=== PATIENT | female | born 1955 | race Caucasian/White ===

== ENCOUNTER 2020-12-27 12:40 | Inpatient (IN) | payer MEDICARE, SELFPAY ==
[2020-12-27] VITALS (24 sets, daily range): BP systolic 97–146; BP diastolic 55–90; PULSE 84–106; RESP 20–26; TEMP 36.1–36.9; O2SAT 91–99; BMI 54.8; BMI 51.7
--- NOTE | 2020-12-27 13:06 | DI.RAD.S_ITS ---
PROCEDURE: XR CHEST 1V INDICATIONS: h/o pne TECHNIQUE: One view of the chest was acquired. COMPARISON: None. FINDINGS: Surgical changes and devices: None. Lungs and pleura: Lungs are abnormal with what appears to be a generalized pneumonia pattern bilaterally. No pleural effusions or pneumothorax. Mediastinum: Mediastinal contours appear normal. Heart size is normal. Bones and chest wall: No suspicious bony lesions. Overlying soft tissues appear unremarkable. IMPRESSION: Generalized pneumonia pattern bilaterally, please correlate for presence of atypical/viral pneumonia. Dictated by: Gordo Domínguez M.D. on 12/27/2020 at 13:28 Approved by: Gordo Domínguez M.D. on 12/27/2020 at 13:28
[2020-12-27 13:47] LABS: Add Manual Diff / Slide Review NO; Basophils Absolute Auto 100 /uL (0-100); Eosinophils Absolute Auto 0 /uL (0-450); Hematocrit 42.8 % (36-46); Hemoglobin 13.8 g/dL (12.0-16.0); Lymphocytes Absolute Auto 700 /uL (1100-4500); Lymphocytes Percent Auto 13.1 % (25-40); Mean Corpuscular HGB Conc 32.3 % (30-36); Mean Corpuscular Hemoglobin 29.2 PG (26-34); Mean Corpuscular Volume 90.2 fL (80-100); Monocytes Absolute Auto 300 /uL (0-900); Monocytes Percent Auto 5.1 % (3-14); Neutrophils Absolute Auto 4400 /uL (1500-7000); Neutrophils Percent Auto 80.8 % (50-75); Platelet Count 175 X10^3/uL (150-400); Red Blood Cell Count 4.74 X10^6/uL (4.0-5.2); Red Cell Distribution Width 15.1 % (11.6-14.8); White Blood Cell Count 5.5 X10^3/uL (4.5-11.0)
--- NOTE | 2020-12-27 13:48 | ED.SOB ---
HPI - SOB/Dyspnea General Chief Complaint: Shortness of Breath/Dyspnea Stated Complaint: Weakness/SOB Time Seen by Provider: 12/27/20 13:32 Source: patient Mode of arrival: EMS Limitations: no limitations History of Present Illness HPI Narrative: This is a 65-year-old female who comes emergency department with complaint of wheezing, COPD and recent pneumonia. Patient states she had finished her steroids and antibiotics yesterday. She has continued to feel unwell. She had temperatures up to 100 101 over the last 2 days before then was even having temperatures of 103. Patient has had some chest discomfort, she has had some shortness of breath, she denies any nausea vomiting. She has had persistent diarrhea since starting the antibiotics. Patient has chronic urinary incontinence. She has had a nonproductive cough. She has also noted she has had intermittent swelling in her lower extremities. When she has her legs elevated it is improved. When they were down or she is up moving about during the day become swollen again. Patient has a known history of COPD, hypertension which is labile, fibromyalgia, RLS, prior history of TIAs. Patient states she has no prior history of dyslipidemia, heart attacks or chronic kidney disease. She is on Breo for her daily steroid inhaler. She has been using her albuterol 3 times daily and typically she does not use it at all. Patient is a poor historian in terms of some of her medications, she was able to provide a list from her pharmacy but some medications that were refilled in November she states she is not taking. List includes today as needed, Ambien, Breo, lisinopril, gabapentin, temazepam, escitalopram, repair in all and Topamax. Patient states she does no longer taking Lasix or potassium. And that she takes metoprolol as a as needed medication. Positive for hysterectomy, cholecystectomy and appendectomy. Patient has multiple allergies. She quit smoking many years ago. No tobacco, alcohol or illicit. Patient recently moved to the area 2 weeks ago from [place], [place]. Her PCP there was Srinivasa Emmanuel, at [phone]. Related Data Allergies Allergy/AdvReac Type Severity Reaction Status Date / Time aspirin Allergy Verified 12/27/20 12:56 Penicillins Allergy Verified 12/27/20 12:54 phenobarbital Allergy Verified 12/27/20 12:54 povidone-iodine Allergy Verified 12/27/20 12:54 [From Betadine] pregabalin [From Lyrica] Allergy Verified 12/27/20 12:54 soap [From Betadine] Allergy Verified 12/27/20 12:54 Tetanus Vaccines and Toxoid Allergy Verified 12/27/20 12:54 Review of Systems Review of Systems ROS Unobtainable: All systems reviewed & are unremarkable except as noted in HPI and below Patient History Social History household members: family Smoking Status: Never smoker alcohol intake: never Smoking Status: Never smoker Substance Use Type: does not use Exam Narrative Exam Narrative: GENERAL: Alert and oriented x three, obese female in mild distress. HEENT: Head normocephalic, atraumatic, EOMI, pupils reactive, face symmetric, moist mucous membranes NECK: Supple, full range of motion CARDIOVASCULAR: Regular rate and rhythm without murmurs, rubs or gallops. RESPIRATORY: Breath sounds equal bilaterally, bilateral wheezes, no rales or rhonchi. Positive for tachypnea. No accessory muscle use. ABDOMEN: Soft, nontender. Normoactive bowel sounds all 4 quadrants. No guarding or rebound, rigidity, no mass : No CVA tenderness EXTREMITIES: Normal range of motion, no clubbing or edema. Neurovascularly intact NEUROLOGICAL: Cranial nerves II through XII grossly intact. Moving all extremities SKIN: Warm, dry, no petechiae, no rashes or lesions. Initial Vital Signs Initial Vital Signs: Vital Signs Temperature 98.4 F 12/27/20 12:48 Pulse Rate 92 H 12/27/20 12:48 Respiratory Rate 26 H 12/27/20 12:48 Blood Pressure 131/71 12/27/20 12:48 Pulse Oximetry 96 12/27/20 12:48 Course Orders Ordered: ED Orders 12/27/20 13:05 EKG-12 Lead Stat RT Consult Eval and Treat Now 12/27/20 13:06 XR chest 1V Stat 12/27/20 13:25 BNP [NT-proBNP (BNP-Adult 18+)] Stat Blood Culture Stat COVID19 -Nasal swab/Pre-Proc Stat Complete Blood Count AUTO DIFF Stat Comprehensive Metabolic Panel Stat Lactate (Lactic Acid) Stat Lipase Stat Procalcitonin Stat Troponin & CK Cardiac Panel Stat 12/27/20 13:41 COVID19 - ADMIT ([employer] DIRECTOR swab/PCR) Stat 12/27/20 13:51 D Dimer Stat 12/27/20 13:52 Partial Thromboplastin Time Stat Prothrombin Time INR Stat Acetaminophen (Acetaminophen 325 Mg Tablet) 650 mg PO Q6HR PRN PRN Reason: Fever/Mild Pain (1-3) Albuterol (Albuterol Hfa Mdi 60 Puff/8 Gm Inhaler) 1 puff INH RTQ4HR PRN PRN Reason: Shortness Of Breath Albuterol/Ipratropium (Albuterol/Ipratropium 3 Ml Ampul) 3 ml INH RTQ6HR [facility] Last Admin: 12/27/20 19:14 Dose: Not Given Documented by: ALESSIO Dexamethasone (Dexamethasone 10 Mg/Ml Vial) 6 mg IV DAILY [facility] Enoxaparin Sodium (Enoxaparin 40 Mg/0.4 Ml Syringe) 40 mg SUBCUT BID [facility] Furosemide (Furosemide 40 Mg/4 Ml Vial) 40 mg IV DAILY [facility] Last Admin: 12/27/20 18:12 Dose: 40 mg Documented by: MAR Azithromycin 500 mg/ Dextrose 250 mls @ 250 mls/hr IV Q24H [facility] Last Infusion: 12/27/20 18:41 Dose: 0 mls/hr Documented by: Admin: 12/27/20 16:47 Dose: 250 mls/hr Documented by: WILLIE Remdesivir 100 mg/ Sodium (Chloride) 250 mls @ 250 mls/hr IV 1700 MARGRET Naloxone HCl (Naloxone 0.4 Mg/Ml Vial) 0.2 mg IV Q2MIN PRN PRN Reason: Opiate Reversal Discontinued Medications Albuterol (Albuterol Hfa Mdi 60 Puff/8 Gm Inhaler) 6 puff INH NOW ONE Stop: 12/27/20 14:02 Last Admin: 12/27/20 15:28 Dose: 6 puff Documented by: REYES Albuterol/Ipratropium (Albuterol/Ipratropium 3 Ml Ampul) 3 ml INH NOW ONE Stop: 12/27/20 13:53 Last Admin: 12/27/20 14:48 Dose: Not Given Documented by: WILLIE Dexamethasone (Dexamethasone 10 Mg/Ml Vial) 6 mg IV NOW ONE Stop: 12/27/20 14:10 Last Admin: 12/27/20 15:02 Dose: Not Given Documented by: WILLIE Remdesivir 200 mg/ Sodium (Chloride) 250 mls @ 250 mls/hr IV NOW ONE Stop: 12/27/20 16:22 Last Admin: 12/27/20 18:12 Dose: 250 mls/hr Documented by: MAR Methylprednisolone (Methylprednisolone 125 Mg/2 Ml Vial) 125 mg IV NOW ONE Stop: 12/27/20 13:53 Last Admin: 12/27/20 15:02 Dose: Not Given Documented by: WILLIE Consultations Consultation #1: Dr. Bridges, discussed patient comes when with persistent pneumonia which was treated with antibiotics but patient is now COVID positive with pneumonia on chest x-ray and appears the pattern more consistent with COVID. Patient has multiple comorbidities including COPD, BMI 51 and hypertension. Patient is tachypneic but not hypoxic here in the department but is at 94% on room air while seated. Patient has had chest, worsening shortness of breath and fevers for the past week. Patient's high likelihood of decompensation and after discussion plan for observation. Excision was made to hold dexamethasone antivirals that she is not hypoxic at this time and does not meet criteria. Vital Signs Vital signs: Vital Signs - 8 hr 12/27/20 12:48 12/27/20 13:04 12/27/20 13:14 Temperature 98.4 F Pulse Rate 92 H 87 87 Respiratory Rate 26 H Blood Pressure 131/71 138/65 Pulse Oximetry 96 98 99 12/27/20 13:15 12/27/20 13:30 12/27/20 13:45 Temperature Pulse Rate 89 87 90 Respiratory Rate Blood Pressure 134/55 L 146/90 H Pulse Oximetry 99 94 93 12/27/20 13:46 12/27/20 14:00 12/27/20 14:15 Temperature Pulse Rate 91 H 99 H 90 Respiratory Rate Blood Pressure 118/68 115/75 Pulse Oximetry 95 92 94 12/27/20 14:30 12/27/20 14:45 Temperature Pulse Rate 93 H 89 Respiratory Rate 20 Blood Pressure 121/72 105/71 Pulse Oximetry 94 MDM - SOB/Dyspnea Lab Data Result diagrams: 12/27/20 13:25 12/27/20 13:25 Labs: Lab Results 12/27/20 12/27/20 12/27/20 Range/Units 13:25 13:25 13:25 WBC 5.5 (4.5-11.0) X10^3/uL RBC 4.74 (4.0-5.2) X10^6/uL Hgb 13.8 (12.0-16.0) g/dL Hct 42.8 (36-46) % MCV 90.2 (80-100) fL MCH 29.2 (26-34) PG MCHC 32.3 (30-36) % RDW 15.1 H (11.6-14.8) % Plt Count 175 (150-400) X10^3/uL Neut % (Auto) 80.8 H (50-75) % Lymph % (Auto) 13.1 L (25-40) % [place] % (Auto) 5.1 (3-14) % Eos % (Auto) 0.0 L (2-4) % Baso % (Auto) 1.0 (0-2) % Neut # (Auto) 4400 (6320-5474) /uL Lymph # (Auto) 700 L (5379-9336) /uL [place] # (Auto) 300 (0-900) /uL Eos # (Auto) 0 (0-450) /uL Baso # (Auto) 100 (0-100) /uL Sodium 137 (137-145) mmol/L Potassium 3.6 (3.4-5.1) mmol/L Chloride 98 (98-107) mmol/L Carbon Dioxide 34 H (22-32) mmol/L BUN 11 (7-17) mg/dL Creatinine 0.67 (0.52-1.04) mg/dL Estimated GFR > 60.0 (>60) mL/min BUN/Creatinine Ratio 16.4 (6-22) Glucose 111 H (80-110) mg/dL Lactate 1.6 (0.7-2.1) mmol/L Calcium 8.2 L (8.4-10.2) mg/dL Total Bilirubin 0.9 (0.2-1.3) mg/dL AST 83 H (14-36) IU/L ALT 39 H (<35) IU/L Alkaline Phosphatase 64 (38-126) U/L Total Creatine Kinase (30-135) U/L CK-MB (CK-2) CK-MB (CK-2) Rel Index Troponin I (0.01-0.034) ng/mL NT-Pro-B Natriuret Pep (<125) pg/mL Total Protein 7.1 (6.3-8.2) g/dL Albumin 3.5 (3.5-5.0) g/dL Globulin 3.6 (1.7-4.1) g/dL Albumin/Globulin Ratio 1.0 (1.0-2.8) Lipase 153 (23-300) U/L Procalcitonin 0.34 (<0.5) ng/mL SARS-CoV-2 (PCR) (Negative) 12/27/20 12/27/20 12/27/20 Range/Units 13:25 13:25 13:41 WBC (4.5-11.0) X10^3/uL RBC (4.0-5.2) X10^6/uL Hgb (12.0-16.0) g/dL Hct (36-46) % MCV (80-100) fL MCH (26-34) PG MCHC (30-36) % RDW (11.6-14.8) % Plt Count (150-400) X10^3/uL Neut % (Auto) (50-75) % Lymph % (Auto) (25-40) % [place] % (Auto) (3-14) % Eos % (Auto) (2-4) % Baso % (Auto) (0-2) % Neut # (Auto) (4463-0114) /uL Lymph # (Auto) (9884-5033) /uL [place] # (Auto) (0-900) /uL Eos # (Auto) (0-450) /uL Baso # (Auto) (0-100) /uL Sodium (137-145) mmol/L Potassium (3.4-5.1) mmol/L Chloride (98-107) mmol/L Carbon Dioxide (22-32) mmol/L BUN (7-17) mg/dL Creatinine (0.52-1.04) mg/dL Estimated GFR (>60) mL/min BUN/Creatinine Ratio (6-22) Glucose (80-110) mg/dL Lactate (0.7-2.1) mmol/L Calcium (8.4-10.2) mg/dL Total Bilirubin (0.2-1.3) mg/dL AST (14-36) IU/L ALT (<35) IU/L Alkaline Phosphatase (38-126) U/L Total Creatine Kinase 84 (30-135) U/L CK-MB (CK-2) TNP CK-MB (CK-2) Rel Index TNP Troponin I < 0.012 (0.01-0.034) ng/mL NT-Pro-B Natriuret Pep 839 H (<125) pg/mL Total Protein (6.3-8.2) g/dL Albumin (3.5-5.0) g/dL Globulin (1.7-4.1) g/dL Albumin/Globulin Ratio (1.0-2.8) Lipase (23-300) U/L Procalcitonin (<0.5) ng/mL SARS-CoV-2 (PCR) Positive H Positive H (Negative) Imaging Data Chest x-ray: Radiologist's Impression: [address] [id number] ReportSigned Patient: Nelly Dempsey DMR#: [id number]: 5Acct:[id number]/Sex: 65 / FDate of Service: 12/27/20Loc: EDAccession Number: [id number] Procedure: XR chest 1V Ordering Provider: Sofi Stafford D.O. PROCEDURE: XR CHEST 1V INDICATIONS: h/o pne TECHNIQUE: One view of the chest was acquired. COMPARISON: None. FINDINGS: Surgical changes and devices: None. Lungs and pleura: Lungs are abnormal with what appears to be a generalized pneumonia pattern bilaterally. No pleural effusions or pneumothorax. Mediastinum: Mediastinal contours appear normal. Heart size is normal. Bones and chest wall: No suspicious bony lesions. Overlying soft tissues appear unremarkable. IMPRESSION: Generalized pneumonia pattern bilaterally, please correlate for presence of atypical/viral pneumonia. Dictated by: Gordo Domínguez M.D. on 12/27/2020 at 13:28 Approved by: Gordo Domínguez M.D. on 12/27/2020 at 13:28 ECG Data Attestation: I personally reviewed and interpreted this ECG as follows: Prior ECG tracings: not available for review Interpretation: Sinus rhythm rate 87 P are 138 QRS is 76 and QTC of 418. No acute ST elevation depression noted. MDM Narrative Medical decision making narrative: This is a female with known COPD, recent pneumonia on antibiotics and steroids which she had completed who has tested positive for COVID, she has wheezing in the department. She is not hypoxic but has multiple comorbidities and according to her sister has been mildly confused as well recently. Patient did also recently fly to the area 2 weeks ago. She is tachypneic although not hypoxic here in the department. Patient tested positive for COVID. Patient's labs are otherwise mostly reassuring but she is mildly tachypneic, she is not hypoxic but has multiple comorbidities. Spoke with the hospitalist who agrees for observation as she is likely decompensate. She did have albuterol 6 puffs with mild improvement. Steroids were not given after discussion with hospitalist as well as remdesivir was held at this time but may be given if patient becomes hypoxic. Discharge Plan Departure Patient Disposition: Admitted as Observation Clinical Impression: Pneumonia due to COVID-19 virus, COPD (chronic obstructive pulmonary disease) Admit Date/Time: 12/27/20 14:52 Admit Provider: Brenton Bridges
[2020-12-27 14:01] LABS: COVID19 -Nasal RAPID POSITIVE (Negative)
[2020-12-27 14:09] LABS: Creatine Kinase 84 U/L (30-135); Lactate (Lactic Acid) 1.6 mmol/L (0.7-2.1)
[2020-12-27 14:11] LABS: Alanine Aminotransferase 39 IU/L (<35); Albumin 3.5 g/dL (3.5-5.0); Alkaline Phosphatase 64 U/L (38-126); BUN Creatinine Ratio 16.4 (6-22); Bilirubin Total 0.9 mg/dL (0.2-1.3); Blood Urea Nitrogen 11 mg/dL (7-17); Calcium 8.2 mg/dL (8.4-10.2); Carbon Dioxide 34 mmol/L (22-32); Chloride 98 mmol/L (98-107); Estimated Glomerular Filt Rate > 60.0 mL/min (>60); Globulin 3.6 g/dL (1.7-4.1); Glucose 111 mg/dL (80-110); Lipase 153 U/L (23-300); Sodium 137 mmol/L (137-145); Total Protein 7.1 g/dL (6.3-8.2)
[2020-12-27 14:19] LABS: Aspartate Aminotransferase 83 IU/L (14-36); HEMOLYSIS 82 (0-50); Potassium 3.6 mmol/L (3.4-5.1)
[2020-12-27 14:23] LABS: NT-proBNP (BNP-Adult 18+) 839 pg/mL (<125); Troponin I < 0.012 ng/mL (0.01-0.034)
[2020-12-27 14:27] LABS: Procalcitonin 0.34 ng/mL (<0.5)
[2020-12-27 15:00] LABS: COVID19 - ADMIT (NP swab/PCR) POSITIVE (Negative)
[2020-12-27] MEDS: ALBUTEROL HFA MDI 60 PUFF/8 GM INHALER 6 PUFF INH (15:28)
[2020-12-27] MEDS: AZITHROMYCIN 500 MG in DEXTROSE 5% IN WATER 250 ML IV (16:47)
[2020-12-27] MEDS: REMDESIVIR 200 MG in SODIUM CHLORIDE 0.9% 210 ML 250 ML IV (18:12)
[2020-12-27] MEDS: FUROSEMIDE 40 MG/4 ML VIAL IV (18:12)
[2020-12-27] MEDS: TRAMADOL 50 MG TABLET PO (20:50)
[2020-12-27] MEDS: ENOXAPARIN 40 MG/0.4 ML SYRINGE SUBCUT (20:51)
--- NOTE | 2020-12-27 22:18 | P.HP_ITS ---
History of Present Illness History of Present Illness Chief complaint: Weakness/SOB Narrative: 65W with PMH morbid obesity, COPD on breo not on oxygen, fibromyalgia, HTN, restless leg syndrome, TIA whos is coming with with fevers and shortness of breath. She has just moved from [place] approximately two weeks ago. She states she had the [place] COVID vaccine two months ago. She began feeling unwell nearly a week ago. She went to another hospital was diagnosed with a bacterial pneumonia, sent home with antibiotics and steroids. However she continues to feel poorly primarily with shortness of breath, cough, fevers, fatigue and diarrhea. Her cough is nonproductive. She has also noted new lower extremity swelling. But today is improved after keeping legs elevated. She has been using her albuterol 3x/day. She has previously been on lasix in the past but is not currently. In the ED, vitals were notable for a heart rate in the 90s, no fever. Initially not hypoxemic but then dropped o2 sats to 91% when I was in the room. Labs notable for normal WBC. Creatinine of 0.67. Mild transaminitis. BNP 839. COVID positive. Cxray showed bilateral interstitial infiltrates concerning for atypical pneumonia. She was given IV steroids, started on oxygen, remedesivir. She was admitted for further treatment. Asked patient about family history and she denied her family had any medical issues. Patient History Family & Social History Social History: household members family Prior Living Arrangements Mobile home Safety & Behavioral: Feels Safe in Current Yes Environment Been Physically Hurt or No Threatened By a Person Suicidal Ideation Description None Suicide Plan Description No Plan Tobacco & Substance use: Smoking Status Never smoker alcohol intake never Substance Use Type does not use Meds Home Medications and Allergies Home Medications Medication Instructions Recorded Confirmed Type escitalopram oxalate 10 mg tablet 30 mg PO BEDTIME 12/27/20 12/27/20 History (Lexapro) hydrocodone 5 mg-acetaminophen 325 1 tab PO QID 12/27/20 12/27/20 History mg tablet ropinirole 0.25 mg tablet (Requip) 0.25 mg PO TID 12/27/20 12/27/20 History trazodone 50 mg tablet 50 mg PO BEDTIME 12/27/20 12/27/20 History zolpidem 10 mg tablet (Ambien) 10 mg PO BEDTIME 12/27/20 12/27/20 History Allergies Allergy/AdvReac Type Severity Reaction Status Date / Time aspirin Allergy Verified 12/27/20 12:56 Penicillins Allergy Verified 12/27/20 12:54 phenobarbital Allergy Verified 12/27/20 12:54 povidone-iodine Allergy Verified 12/27/20 12:54 [From Betadine] pregabalin [From Lyrica] Allergy Verified 12/27/20 12:54 soap [From Betadine] Allergy Verified 12/27/20 12:54 Tetanus Vaccines and Toxoid Allergy Verified 12/27/20 12:54 Review of Systems Review of Systems Narrative: 14 systems reviewed and negative aside from what is noted in HPI Exam Vital Signs (past 8 hours): - 12/27/20 14:30 12/27/20 14:45 12/27/20 15:00 Temperature Pulse Rate 93 H 89 84 Respiratory Rate 20 Blood Pressure 121/72 105/71 Pulse Oximetry 94 92 12/27/20 15:15 12/27/20 15:30 12/27/20 15:45 Temperature Pulse Rate 84 85 94 H Respiratory Rate 20 Blood Pressure Pulse Oximetry 92 94 92 12/27/20 16:00 12/27/20 16:01 12/27/20 16:15 Temperature Pulse Rate 106 H 102 H 96 H Respiratory Rate Blood Pressure 97/58 L 102/66 Pulse Oximetry 92 92 93 12/27/20 16:30 12/27/20 16:45 12/27/20 17:00 Temperature Pulse Rate 93 H 92 H 93 H Respiratory Rate Blood Pressure 102/60 101/59 L 104/60 Pulse Oximetry 91 93 12/27/20 17:15 12/27/20 17:45 Temperature 96.9 F L Pulse Rate 94 H 97 H Respiratory Rate 22 Blood Pressure 117/65 139/68 Pulse Oximetry 94 Oxygen Delivery Method Room Air Oxygen Flow Rate 4 Narrative Exam Narrative: GEN: mild distress HEENT: PERRL, moist mucous membranes NECK: trachea midline, no JVD CV: regular rate and rhythm with no murmurs PULM: tachypneic, coarse breath sounds and wheezing ABD: soft, nontender, not distended, no organomegaly, normal bowel sounds EXT: warm and well perfused with no edema NEURO: moving all extremities Objective Labs Result Diagrams: 12/27/20 13:25 07/08/21 13:25 Labs: Laboratory Results - last 24 hr 12/27/20 12/27/20 12/27/20 13:25 13:25 13:25 WBC 5.5 RBC 4.74 Hgb 13.8 Hct 42.8 MCV 90.2 MCH 29.2 MCHC 32.3 RDW 15.1 H Plt Count 175 Neut % (Auto) 80.8 H Lymph % (Auto) 13.1 L [place] % (Auto) 5.1 Eos % (Auto) 0.0 L Baso % (Auto) 1.0 Neut # (Auto) 4400 Lymph # (Auto) 700 L [place] # (Auto) 300 Eos # (Auto) 0 Baso # (Auto) 100 Sodium 137 Potassium 3.6 Chloride 98 Carbon Dioxide 34 H BUN 11 Creatinine 0.67 Estimated GFR > 60.0 BUN/Creatinine Ratio 16.4 Glucose 111 H Lactate 1.6 Calcium 8.2 L Total Bilirubin 0.9 AST 83 H ALT 39 H Alkaline Phosphatase 64 Total Creatine Kinase CK-MB (CK-2) CK-MB (CK-2) Rel Index Troponin I NT-Pro-B Natriuret Pep Total Protein 7.1 Albumin 3.5 Globulin 3.6 Albumin/Globulin Ratio 1.0 Lipase 153 Procalcitonin 0.34 SARS-CoV-2 (PCR) 12/27/20 12/27/20 12/27/20 13:25 13:25 13:41 WBC RBC Hgb Hct MCV MCH MCHC RDW Plt Count Neut % (Auto) Lymph % (Auto) [place] % (Auto) Eos % (Auto) Baso % (Auto) Neut # (Auto) Lymph # (Auto) [place] # (Auto) Eos # (Auto) Baso # (Auto) Sodium Potassium Chloride Carbon Dioxide BUN Creatinine Estimated GFR BUN/Creatinine Ratio Glucose Lactate Calcium Total Bilirubin AST ALT Alkaline Phosphatase Total Creatine Kinase 84 CK-MB (CK-2) TNP CK-MB (CK-2) Rel Index TNP Troponin I < 0.012 NT-Pro-B Natriuret Pep 839 H Total Protein Albumin Globulin Albumin/Globulin Ratio Lipase Procalcitonin SARS-CoV-2 (PCR) Positive H Positive H Assessment & Plan Assessment & Plan narrative: Ms. Dempsey is a 65W with PMH of HTN, COPD, obesity who presents with fever, cough, shortness of breath found to have acute respiratory failure with COVID pneumonia and acute COPD exacerbation. 1. Acute respiratory failure from COVID pneumonia and acute COPD exacerbation -COVID positive, cxray with interestitial infiltrates -sats in low 90s, so placed on oxygen goal >93% -started on dexamethasone and remdesivir -low suspicion for bacterial pneumonia -with wheezing on exam believe has reactive COPD exacerbation to infect -----ordered for inhalers with albuterol/ipratropium, IV azithromycin, steroids with dexamethasone 2. 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 Morbid obesity -will need dietary encouragement -possibly has component of JEFFREY given body habitus, but will see if can avoid NIPPV for now 4. Mild transaminitis -denies EtOH use -could be from acute illness from COVID, or from possible steatosis from obesity -trend daily too ensure no rise when starting remdesivir 5. Fibromyalgia -try to avoid narcotics given respiratory compromise -will try tramadol for pain 6. HTN -hold antihypertensives given infection 7. H/o TIAs -per patient not on aspirin, hold for now IVF: none DVT ppx: lovenox sc CODE: DNR, proxy is Kaley Chiqui, sister
[2020-12-27] MEDS: ESCITALOPRAM 10 MG TABLET 30 MG PO (22:32)
[2020-12-27] MEDS: ROPINIROLE 0.25 MG TABLET PO (22:32)
[2020-12-27] MEDS: TRAZODONE 50 MG TABLET PO (22:32)
[2020-12-28] VITALS (10 sets, daily range): BP systolic 97–186; BP diastolic 46–78; PULSE 62–92; RESP 16–26; TEMP 36.2–37.4; O2SAT 92–96
[2020-12-28] MEDS: TRAMADOL 50 MG TABLET PO ×3 (01:17→21:23)
[2020-12-28 01:50] LABS: INR 1.2 (0.9-1.3); Prothrombin Time 13.2 SECONDS (10.1-12.7)
[2020-12-28 01:52] LABS: PTT Partial Thromboplastin Tim 35 SECONDS (26.4-36.2)
[2020-12-28 01:55] LABS: BUN Creatinine Ratio 12.2 (6-22); Blood Urea Nitrogen 10 mg/dL (7-17); Calcium 7.6 mg/dL (8.4-10.2); Carbon Dioxide 35 mmol/L (22-32); Chloride 91 mmol/L (98-107); Estimated Glomerular Filt Rate > 60.0 mL/min (>60); Glucose 134 mg/dL (80-110); HEMOLYSIS < 15 (0-50); Potassium 2.9 mmol/L (3.4-5.1); Sodium 133 mmol/L (137-145)
[2020-12-28 02:07] LABS: D Dimer 3726 ng/mL (<230)
[2020-12-28 04:13] LABS: Add Manual Diff / Slide Review NO; Basophils Absolute Auto 0 /uL (0-100); Basophils Percent Auto 0.6 % (0-2); Eosinophils Absolute Auto 0 /uL (0-450); Hematocrit 40.8 % (36-46); Hemoglobin 13.5 g/dL (12.0-16.0); Lymphocytes Absolute Auto 500 /uL (1100-4500); Lymphocytes Percent Auto 9.5 % (25-40); Mean Corpuscular HGB Conc 33.1 % (30-36); Mean Corpuscular Hemoglobin 29.5 PG (26-34); Mean Corpuscular Volume 89.2 fL (80-100); Monocytes Absolute Auto 400 /uL (0-900); Monocytes Percent Auto 6.2 % (3-14); Neutrophils Absolute Auto 4800 /uL (1500-7000); Neutrophils Percent Auto 83.7 % (50-75); Platelet Count 190 X10^3/uL (150-400); Red Blood Cell Count 4.57 X10^6/uL (4.0-5.2); Red Cell Distribution Width 14.9 % (11.6-14.8); White Blood Cell Count 5.7 X10^3/uL (4.5-11.0)
[2020-12-28 04:21] LABS: Alanine Aminotransferase 34 IU/L (<35); Albumin 3.5 g/dL (3.5-5.0); Alkaline Phosphatase 74 U/L (38-126); Aspartate Aminotransferase 73 IU/L (14-36); Bilirubin Total 0.7 mg/dL (0.2-1.3); Bilirubin Unconjugated 0.4 mg/dL (0.0-1.1); Globulin 3.5 g/dL (1.7-4.1); HEMOLYSIS < 15 (0-50)
[2020-12-28] MEDS: ALBUTEROL/IPRATROPIUM 3 ML AMPUL INH ×4 (04:28→19:30)
[2020-12-28] MEDS: FUROSEMIDE 40 MG/4 ML VIAL IV (07:57)
[2020-12-28] MEDS: ENOXAPARIN 40 MG/0.4 ML SYRINGE SUBCUT ×2 (07:59→21:15)
[2020-12-28] MEDS: POTASSIUM CHLORIDE 20 MEQ TAB 40 MEQ PO ×3 (07:59→17:26)
--- NOTE | 2020-12-28 08:08 | PC.NURSE ---
Addendum entered by Jennifer Reaves R.N. 12/28/20 15:23: Pt has stayed in NSR this shift, with good output after Furosemide. Pain control with requip and tramadol this shift. 4L NC with Spo2 95%. Coarse lungs with crackles, improved greatly after lasix. Midline with dual lumen Original Note: PT WENT INTO A RAPID AFIB RATE 150'S - SHE WAS LEFT SIDE LYING-VALSALVA MANUEVER X 2 WERE INEFFECTIVE -B/P 137/65 SPO2 94% -STAT EKG ORDERED BUT PT CONVERTED BACK TO NSR - SPONTANEOUSLY
--- NOTE | 2020-12-28 08:09 | DI.ECHO.S_ITS ---
[facility] +---------+ : : [address] : : : : [id number] : : : : Phone: [phone]+ Echocardiogram Report + + :Name: BRANDON FENTON Study Date: 12/28/2020 Height: 67 in : :[facility] ReadingLocation: Weight: 330 lb : : Gender: Female BSA: 2.5 m2 : :: 1955 Age: 65 yrs BP: 165/70 mmHg: :Reason For Study: Atrial fibrillation : :Ordering Physician: : :JENNIFER GÓMEZ Performed By: Arnol Maya : :Referring: JENNIFER GÓMEZ : + + Interpretation Summary Normal left ventricle size with ejection fraction 60-65%. Both atria are normal in size. Mild aortic valve sclerosis. No valvular regurgitation. Procedure: The study quality was technically adequate. A two-dimensional transthoracic echocardiogram with color flow and Doppler was performed. There is no prior echocardiogram noted for this patient. Left Ventricle: The left ventricle is normal in size and wall thickness. The ejection fraction is estimated to be 60-65%. There are no focal wall motion abnormalities. Right Ventricle: The right ventricle is normal in size and function. Atria: Both atria are normal in size. There is no Doppler evidence for an interatrial shunt. Mitral Valve: The mitral valve is normal in structure and function. There is trace mitral regurgitation. Aortic Valve: There is mild aortic valve sclerosis. There is discrete nodular thickening of the non- coronary cusp. No aortic regurgitation is present. Tricuspid Valve: The tricuspid valve is normal in structure and function. There is a trace or physiologic amount of tricuspid regurgitation. Right ventricular systolic pressure is estimated to be 26 mmHg plus the clinically estimated CVP which cannot be estimated on this exam. Pulmonic Valve: The pulmonic valve is not well seen, but is grossly normal. There is no pulmonic valvular regurgitation. Great Vessels: The aortic root is normal size. The dimensions of the ascending aorta are normal. The inferior vena cava was not visualized. Pericardium/ Pleura There is no pericardial effusion. There is no pleural effusion. MMode/2D Measurements & Calculations LVIDd: 4.7 cm LVOT diam: 2.2 cm LVIDs: 3.1 cm Ao root diam: 2.9 cm FS: 34.8 % asc Aorta Diam: 2.7 cm IVSd: 0.76 cm LVPWd: 0.74 cm LV marroquin. diameter/BSA (cm/m^2): 1.9 LV sys. diameter/BSA (cm/m^2): 1.2 LA A2 area: 19.1 cm2 RA long axis: 5.2 cm LA A4 area: 18.0 cm2 RA area: 12.5 cm2 LA length (vol): 5.5 cm RA vol: 25.9 ml LA vol: 52.8 ml RA : 10.3 ml/m2 LA vol index: 21.1 ml/m2 TAPSE: 1.8 cm Doppler Measurements & Calculations Ao V2 max: 134.7 cm/sec LVOT Max Zach: 101.4 cm/sec Ao V2 mean: 91.6 cm/sec LV V1 max P.1 mmHg Ao max P.3 mmHg LV V1 VTI: 19.9 cm Ao mean P.8 mmHg LEXY(I,D): 3.1 cm2 Ao V2 VTI: 23.7 cm LEXY(V,D): 2.8 cm2 sev ratio: 0.84 LEXY indexed to BSA (cm^2/m^2): 1.2 MV E max zach: 102.1 cm/sec TR max zach: 253.7 cm/sec MV A max zach: 85.5 cm/sec TR max P.8 mmHg MV E/A: 1.2 PA pr(Accel): 40.5 mmHg Med Peak E' Zach: 6.4 cm/sec E/E' med: 15.8 Lat Peak E' Zach: 8.6 cm/sec E/E' lat: 11.8 E/e' average: 13.8 MV dec time: 0.20 sec SV(LVOT): 73.7 ml Electronically signed by: Rigoberto Lewis on Reading Physician:12/28/2020 02:43 PM
[2020-12-28] MEDS: POTASSIUM CHLORIDE IN WATER 10 MEQ/100 ML PIGGYBACK 100 MEQ IV ×4 (08:17→14:45)
[2020-12-28] MEDS: DEXAMETHASONE 10 MG/ML VIAL 6 MG IV (08:17)
[2020-12-28] MEDS: ONDANSETRON 4 MG/2 ML INJ IV (08:19)
[2020-12-28 08:35] LABS: Magnesium 1.9 mg/dL (1.6-2.3)
[2020-12-28 09:00] LABS: Acinetobacter baumannii Not Detected (Not Detect); Candida albicans Not Detected (Not Detect); Candida glabrata Not Detected (Not Detect); Candida krusei Not Detected (Not Detect); Candida parapsilosis Not Detected (Not Detect); Candida tropicalis Not Detected (Not Detect); E. coli Not Detected (Not Detect); Enterobacter cloacae complex Not Detected (Not Detect); Enterobacteriaceae species Not Detected (Not Detect); Enterococcus species Not Detected (Not Detect); Haemophilus influenzae Not Detected (Not Detect); Listeria monocytogenes Not Detected (Not Detect); Methicillin-resistant gene Detected (Not Detect); Neisseria meningitidis Not Detected (Not Detect); Proteus species Not Detected (Not Detect); Pseudomonas aeruginosa Not Detected (Not Detect); Serratia marcescens Not Detected (Not Detect); Staphylococcus species Detected (Not Detect); Streptococcus agalactiae (Gr B Not Detected (Not Detect); Streptococcus pneumonia Not Detected (Not Detect); Streptococcus pyogenes (Gr A) Not Detected (Not Detect); Streptococcus species Not Detected (Not Detect)
[2020-12-28 09:33] LABS: TSH w/ Reflex to FT4 1.98 uIU/mL (0.47-4.68)
[2020-12-28] MEDS: METOPROLOL IR 50 MG TABLET PO (10:00)
--- NOTE | 2020-12-28 10:22 | DIET.PN ---
Dietary Progress Note RD Note: Sending ONS Ensure Max c lunches to support high protein/low carb needs of this Covid19+ patient.
--- NOTE | 2020-12-28 11:17 | CM.DANOTE ---
Discharge Planning/Care Management DCP: assessment: Case received, EMR reviewed and discussed in Team Rounds. COVID-19 + status noted with pt on specialized precautions for same. Pt is a 65 year old female who admitted yesterday afternoon to care of hospitalist team. PCP: in [place]: listed in ER report. pt moved here 2 weeks ago. Payer: [facility] Admission status: INPT Pt with dx of respiratory failure from Covid pneumonia and acute COPD. She carries dx of morbid obesity. note wt 330 lbs. Have attempted to call her contact: sister Kaley Florian in [place]: [phone] but thus far have not been able to connect with her or to leave a vm. Left a vm for Stanley Hoffman/ listed as grandson : [phone] with request for a call back. It sounds from the documentation that pt has moved her to be with family and lives in a mobile home in [place]. Will attempt to get more information going forward. Pt is not at a point where it would be appropriate to talk with her via phone. Checked with DELGADO Rodriguez. She will ask pt what her sister's contact info is when she is next in room giving care. CM Discharge Assessment Start: 12/28/20 11:16 Freq: Status: Active Protocol: Document 12/28/20 11:16 ITV (Rec: 12/28/20 11:17 ITV [id number]) Discharge Planning Assessment Advance Directives? No History Provided By Medical Record Prior Living Arrangements Mobile home Household Members family Is patient alert and oriented? Yes
[2020-12-28] MEDS: ROPINIROLE 0.25 MG TABLET PO ×2 (13:05→21:16)
[2020-12-28 13:57] LABS: HEMOLYSIS < 15 (0-50)
[2020-12-28] MEDS: VANCOMYCIN 2,000 MG/400 ML PIGGYBACK 200 MG IV (14:45)
--- NOTE | 2020-12-28 15:46 | PM.PN.1 ---
Subjective Subjective Date Patient Seen: 12/28/20 Time Patient Seen: 08:00 Interval history: Today she feels improved. She thinks she is less short of breath, less edematous, less wheezy. Her shortness of breath remains. This morning she went briefly into SVT while hypokalemic but this resolved on its own. She did not feel palpitations, lightheadedness during this. Exam Vital Signs (past 8 hours): - 12/28/20 08:30 12/28/20 09:47 12/28/20 14:55 Pulse Rate 90 88 64 Respiratory Rate 22 20 20 Pulse Oximetry 95 96 95 Oxygen Delivery Method Nasal Cannula Oxygen Flow Rate 0 Narrative Exam Narrative: GEN: mild distress HEENT: PERRL, moist mucous membranes NECK: trachea midline, no JVD CV: regular rate and rhythm with no murmurs PULM: poor air movement bu wheezing has improved ABD: soft, nontender, not distended, no organomegaly, normal bowel sounds EXT: warm and well perfused with no edema NEURO: moving all extremities Objective Labs Result Diagrams: 12/28/20 04:05 12/28/20 03:15 Labs: Laboratory Results - last 24 hr 12/27/20 12/28/20 12/28/20 13:25 01:30 01:30 WBC RBC Hgb Hct MCV MCH MCHC RDW Plt Count Neut % (Auto) Lymph % (Auto) [place] % (Auto) Eos % (Auto) Baso % (Auto) Neut # (Auto) Lymph # (Auto) [place] # (Auto) Eos # (Auto) Baso # (Auto) PT 13.2 H INR 1.2 APTT 35 D-Dimer 3726 H Sodium Potassium Chloride Carbon Dioxide BUN Creatinine Estimated GFR BUN/Creatinine Ratio Glucose Calcium Magnesium Total Bilirubin Conjugated Bilirubin Unconjugated Bilirubin AST ALT Alkaline Phosphatase Total Protein Albumin Globulin Albumin/Globulin Ratio TSH Nasal Screen MRSA (PCR) A. baumannii (PCR) Not detected Yu albicans (PCR) Not detected C. glabrata (PCR) Not detected C. krusei (PCR) Not detected C. parapsilosis (PCR) Not detected C. tropicalis (PCR) Not detected Enterobacteriac sp PCR Not detected E. cloacae complex PCR Not detected Enterococcus sp PCR Not detected E. coli (PCR) Not detected H. influenzae (PCR) Not detected Klebsiella oxytoca PCR Not detected Klebsiella pneumoniae Not detected List. monocytogenes PCR Not detected N. meningitidis (PCR) Not detected Proteus species (PCR) Not detected Serratia marcescens PCR Not detected Staphylococcus sp PCR Detected H Staph aureus (PCR) Not detected mecA-Methicil Res Gene Detected H Streptococcus sp PCR Not detected Group A Strep (PCR) Not detected Strep agalactiae (PCR) Not detected Strep pneumoniae (PCR) Not detected P. aeruginosa (PCR) Not detected Mikaela/B-Vanco Res Genes Not Reportable KPC-Carbap Res Gene PCR Not Reportable 12/28/20 12/28/20 12/28/20 01:30 03:15 03:30 WBC RBC Hgb Hct MCV MCH MCHC RDW Plt Count Neut % (Auto) Lymph % (Auto) [place] % (Auto) Eos % (Auto) Baso % (Auto) Neut # (Auto) Lymph # (Auto) [place] # (Auto) Eos # (Auto) Baso # (Auto) PT INR APTT D-Dimer Sodium 133 L Potassium 2.9 L 4.0 Chloride 91 L Carbon Dioxide 35 H BUN 10 Creatinine 0.82 Estimated GFR > 60.0 BUN/Creatinine Ratio 12.2 Glucose 134 H Calcium 7.6 L Magnesium 2.0 Total Bilirubin Conjugated Bilirubin Unconjugated Bilirubin AST ALT Alkaline Phosphatase Total Protein Albumin Globulin Albumin/Globulin Ratio TSH Nasal Screen MRSA (PCR) Negative for mrsa A. baumannii (PCR) Yu albicans (PCR) C. glabrata (PCR) C. krusei (PCR) C. parapsilosis (PCR) C. tropicalis (PCR) Enterobacteriac sp PCR E. cloacae complex PCR Enterococcus sp PCR E. coli (PCR) H. influenzae (PCR) Klebsiella oxytoca PCR Klebsiella pneumoniae List. monocytogenes PCR N. meningitidis (PCR) Proteus species (PCR) Serratia marcescens PCR Staphylococcus sp PCR Staph aureus (PCR) mecA-Methicil Res Gene Streptococcus sp PCR Group A Strep (PCR) Strep agalactiae (PCR) Strep pneumoniae (PCR) P. aeruginosa (PCR) Mikaela/B-Vanco Res Genes KPC-Carbap Res Gene PCR 12/28/20 12/28/20 12/28/20 04:05 04:05 04:05 WBC 5.7 RBC 4.57 Hgb 13.5 Hct 40.8 MCV 89.2 MCH 29.5 MCHC 33.1 RDW 14.9 H Plt Count 190 Neut % (Auto) 83.7 H Lymph % (Auto) 9.5 L [place] % (Auto) 6.2 Eos % (Auto) 0.0 L Baso % (Auto) 0.6 Neut # (Auto) 4800 Lymph # (Auto) 500 L [place] # (Auto) 400 Eos # (Auto) 0 Baso # (Auto) 0 PT INR APTT D-Dimer Sodium Potassium Chloride Carbon Dioxide BUN Creatinine Estimated GFR BUN/Creatinine Ratio Glucose Calcium Magnesium 1.9 Total Bilirubin 0.7 Conjugated Bilirubin 0.0 Unconjugated Bilirubin 0.4 AST 73 H ALT 34 Alkaline Phosphatase 74 Total Protein 7.0 Albumin 3.5 Globulin 3.5 Albumin/Globulin Ratio 1.0 TSH Nasal Screen MRSA (PCR) A. baumannii (PCR) Yu albicans (PCR) C. glabrata (PCR) C. krusei (PCR) C. parapsilosis (PCR) C. tropicalis (PCR) Enterobacteriac sp PCR E. cloacae complex PCR Enterococcus sp PCR E. coli (PCR) H. influenzae (PCR) Klebsiella oxytoca PCR Klebsiella pneumoniae List. monocytogenes PCR N. meningitidis (PCR) Proteus species (PCR) Serratia marcescens PCR Staphylococcus sp PCR Staph aureus (PCR) mecA-Methicil Res Gene Streptococcus sp PCR Group A Strep (PCR) Strep agalactiae (PCR) Strep pneumoniae (PCR) P. aeruginosa (PCR) Mikaela/B-Vanco Res Genes KPC-Carbap Res Gene PCR 12/28/20 05:00 WBC RBC Hgb Hct MCV MCH MCHC RDW Plt Count Neut % (Auto) Lymph % (Auto) [place] % (Auto) Eos % (Auto) Baso % (Auto) Neut # (Auto) Lymph # (Auto) [place] # (Auto) Eos # (Auto) Baso # (Auto) PT INR APTT D-Dimer Sodium Potassium Chloride Carbon Dioxide BUN Creatinine Estimated GFR BUN/Creatinine Ratio Glucose Calcium Magnesium Total Bilirubin Conjugated Bilirubin Unconjugated Bilirubin AST ALT Alkaline Phosphatase Total Protein Albumin Globulin Albumin/Globulin Ratio TSH 1.98 Nasal Screen MRSA (PCR) A. baumannii (PCR) Yu albicans (PCR) C. glabrata (PCR) C. krusei (PCR) C. parapsilosis (PCR) C. tropicalis (PCR) Enterobacteriac sp PCR E. cloacae complex PCR Enterococcus sp PCR E. coli (PCR) H. influenzae (PCR) Klebsiella oxytoca PCR Klebsiella pneumoniae List. monocytogenes PCR N. meningitidis (PCR) Proteus species (PCR) Serratia marcescens PCR Staphylococcus sp PCR Staph aureus (PCR) mecA-Methicil Res Gene Streptococcus sp PCR Group A Strep (PCR) Strep agalactiae (PCR) Strep pneumoniae (PCR) P. aeruginosa (PCR) Mikaela/B-Vanco Res Genes KPC-Carbap Res Gene PCR PFSH Social History household members: family Smoking Status: Never smoker alcohol intake: never Assessment & Plan Assessment & Plan narrative: Ms. Dempsey is a 65W with PMH of HTN, COPD, obesity who presents with fever, cough, shortness of breath found to have acute respiratory failure with COVID pneumonia and acute COPD exacerbation. 1. Acute respiratory failure from COVID pneumonia and acute COPD exacerbation -COVID positive, cxray with interestitial infiltrates -sats in low 90s, so placed on oxygen goal >93% -started on dexamethasone and remdesivir -low suspicion for bacterial pneumonia -with wheezing on exam, I believe has reactive COPD exacerbation to infection -----ordered for inhalers with albuterol/ipratropium, IV azithromycin, steroids with dexamethasone 2. SVT -went into SVT morning of 12/28, patient was asymptomatic, blood pressure normal, rates as high as 150s -undetermined if atrial fibrillation -per my read of telemetry, had significant ectopy -likely secondary to hypokalemia -started low dose metoprolol -TSH normal -ECHO showed normal EF, no significant valvular pathology 2. 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 Morbid obesity -will need dietary encouragement -possibly has component of JEFFREY given body habitus, but will see if can avoid NIPPV for now -likely would benefit from outpatient sleep study 4. Mild transaminitis, improved -denies EtOH use -could be from acute illness from COVID, or from possible steatosis from obesity -trend daily too ensure no rise when starting remdesivir, -improved on 5. Fibromyalgia -try to avoid narcotics given respiratory compromise -will try tramadol for pain -hold ambien 6. HTN -hold antihypertensives given infection 7. H/o TIAs -per patient not on aspirin, hold for now IVF: none DVT ppx: lovenox sc CODE: DNR, proxy is Kaley Florian, sister
[2020-12-28] MEDS: AZITHROMYCIN 500 MG in DEXTROSE 5% IN WATER 250 ML IV (17:26)
[2020-12-28] MEDS: REMDESIVIR 100 MG in SODIUM CHLORIDE 0.9% 230 ML 250 ML IV (17:34)
[2020-12-28 20:08] LABS: Clostridium Difficile Tox PCR Positive for C. diff (Negative)
--- NOTE | 2020-12-28 20:13 | PM.CALLCOV.1 ---
Call Coverage Note Note Narrative of Care Provided: Informed patient is positive for c. difficile and confirmed in the chart. She is ordered for oral vancomycin 125 mg po qid.
[2020-12-28] MEDS: ESCITALOPRAM 10 MG TABLET 30 MG PO (21:16)
[2020-12-28] MEDS: METOPROLOL IR 25 MG TABLET PO (21:17)
[2020-12-28] MEDS: VANCOMYCIN 125 MG CAPSULE PO (21:49)
[2020-12-28] MEDS: TRAZODONE 50 MG TABLET PO (21:49)
[2020-12-28] MEDS: VANCOMYCIN 1,000 MG/200 ML PIGGYBACK 200 MG IV (22:49)
[2020-12-29] VITALS (11 sets, daily range): BP systolic 104–149; BP diastolic 50–67; PULSE 51–60; RESP 14–93; TEMP 35.7–36.6; O2SAT 91–97
[2020-12-29] MEDS: VANCOMYCIN 125 MG CAPSULE PO ×4 (02:11→20:34)
[2020-12-29] MEDS: TRAMADOL 50 MG TABLET PO ×2 (05:19→11:37)
[2020-12-29 05:37] LABS: BUN Creatinine Ratio 20.8 (6-22); Blood Urea Nitrogen 15 mg/dL (7-17); Carbon Dioxide 33 mmol/L (22-32); Chloride 96 mmol/L (98-107); Estimated Glomerular Filt Rate > 60.0 mL/min (>60); Glucose 138 mg/dL (80-110); HEMOLYSIS < 15 (0-50); Hematocrit 40.1 % (36-46); Hemoglobin 13.1 g/dL (12.0-16.0); Mean Corpuscular HGB Conc 32.7 % (30-36); Mean Corpuscular Hemoglobin 29.3 PG (26-34); Mean Corpuscular Volume 89.7 fL (80-100); Platelet Count 192 X10^3/uL (150-400); Potassium 4.2 mmol/L (3.4-5.1); Red Blood Cell Count 4.47 X10^6/uL (4.0-5.2); Red Cell Distribution Width 15.1 % (11.6-14.8); Sodium 135 mmol/L (137-145)
[2020-12-29] MEDS: VANCOMYCIN 1,000 MG/200 ML PIGGYBACK 200 MG IV (06:34)
[2020-12-29] MEDS: ALBUTEROL/IPRATROPIUM 3 ML AMPUL INH (08:16)
[2020-12-29] MEDS: POTASSIUM CHLORIDE 20 MEQ TAB 40 MEQ PO ×3 (08:36→17:16)
[2020-12-29] MEDS: DEXAMETHASONE 10 MG/ML VIAL 6 MG IV (08:36)
[2020-12-29] MEDS: IBUPROFEN 400 MG TABLET 800 MG PO (08:36)
[2020-12-29] MEDS: ENOXAPARIN 40 MG/0.4 ML SYRINGE SUBCUT ×2 (08:37→20:27)
[2020-12-29] MEDS: METOPROLOL IR 25 MG TABLET PO (08:37)
[2020-12-29] MEDS: ROPINIROLE 0.25 MG TABLET PO ×3 (08:37→20:28)
[2020-12-29 15:30] LABS: Vancomycin Trough 15.3 ug/mL (10-20)
--- NOTE | 2020-12-29 16:26 | P.PN_ITS ---
Subjective Subjective Interval history: Patient is a 65-year-old female who was admitted to the hospital with COVID pneumonia, acute respiratory failure, COPD exacerbation. She reports feeling significantly improved today. Her oxygen was weaned from 4 L down to 3 L. she continues to be hypoxic at rest desaturating to 88-89%, but no wheezing. Exam Vital Signs (past 8 hours): - 12/29/20 08:30 12/29/20 08:36 12/29/20 08:45 Temperature Pulse Rate 57 L 57 L 60 Respiratory Rate 17 18 18 Blood Pressure Pulse Oximetry 93 93 92 12/29/20 08:58 12/29/20 09:00 12/29/20 09:15 Temperature 97.8 F Pulse Rate 60 59 L 55 L Respiratory Rate 18 18 14 Blood Pressure 142/63 H Pulse Oximetry 92 91 93 Oxygen Delivery Method Nasal Cannula Oxygen Flow Rate 3.5 Resp Other: Decreased breath sounds, no wheezes rhonchi or crackles Cardio Other: Cardiac exam: Regular rate and rhythm normal S1-S2 GI Other: Abdomen: Soft nontender nondistended Extrem Other: Extremities: No edema Objective Labs Result Diagrams: 12/29/20 05:05 12/29/20 05:05 Labs: Laboratory Results - last 24 hr 12/28/20 12/29/20 12/29/20 19:06 05:05 05:05 WBC 3.0 L RBC 4.47 Hgb 13.1 Hct 40.1 MCV 89.7 MCH 29.3 MCHC 32.7 RDW 15.1 H Plt Count 192 Sodium 135 L Potassium 4.2 Chloride 96 L Carbon Dioxide 33 H BUN 15 Creatinine 0.72 Estimated GFR > 60.0 BUN/Creatinine Ratio 20.8 Glucose 138 H Calcium 8.0 L Vancomycin Trough C. difficile Tox (PCR) Positive for c. diff H 12/29/20 14:30 WBC RBC Hgb Hct MCV MCH MCHC RDW Plt Count Sodium Potassium Chloride Carbon Dioxide BUN Creatinine Estimated GFR BUN/Creatinine Ratio Glucose Calcium Vancomycin Trough 15.3 C. difficile Tox (PCR) PFSH Social History household members: family Smoking Status: Never smoker alcohol intake: never Assessment & Plan Assessment & Plan narrative: Assessment & Plan narrative: Ms. Dempsey is a 65W with PMH of HTN, COPD, obesity who presents with fever, cough, shortness of breath found to have acute respiratory failure with COVID pneumonia and acute COPD exacerbation. 1. Acute respiratory failure from COVID pneumonia and acute COPD exacerbation -COVID positive, cxray with interestitial infiltrates -sats in low 90s, so placed on oxygen goal >93% -started on dexamethasone and remdesivir -low suspicion for bacterial pneumonia -with wheezing on exam, I believe has reactive COPD exacerbation to infection -----ordered for inhalers with albuterol/ipratropium, IV azithromycin, steroids with dexamethasone -continue dexamethasone, remdesivir, will discontinue inhalers given her COVID and the need to avoid Aerolizing the viurs -doubt bacterial pneumonia, d/c azithryomycin -now with CDIFF -start Vanco orally 2. SVT -went into SVT morning of 12/28, patient was asymptomatic, blood pressure normal, rates as high as 150s -undetermined if atrial fibrillation -per my read of telemetry, had significant ectopy -likely secondary to hypokalemia -started low dose metoprolol -TSH normal -ECHO showed normal EF, no significant valvular pathology 2. 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 Morbid obesity -will need dietary encouragement -possibly has component of JEFFREY given body habitus, but will see if can avoid NIPPV for now -likely would benefit from outpatient sleep study 4. Mild transaminitis, improved -denies EtOH use -could be from acute illness from COVID, or from possible steatosis from obesity -trend daily too ensure no rise when starting remdesivir, -improved on 5. Fibromyalgia resume usual pain regimen ambien for sleep - 6. HTN -hold antihypertensives given infection 7. H/o TIAs -per patient not on aspirin, hold for now 8. Cdiff positive -start vanco IVF: none DVT ppx: lovenox sc CODE: DNR, proxy is Kaley Florian, sister
[2020-12-29] MEDS: REMDESIVIR 100 MG in SODIUM CHLORIDE 0.9% 230 ML 250 ML IV (17:16)
[2020-12-29] MEDS: HYDROCODONE/ACET 10/325 TABLET 1 TAB PO ×2 (17:16→20:31)
[2020-12-29] MEDS: ZOLPIDEM 5 MG TABLET 10 MG PO (20:27)
[2020-12-29] MEDS: ESCITALOPRAM 10 MG TABLET 30 MG PO (20:27)
[2020-12-29] MEDS: TRAZODONE 50 MG TABLET PO (20:28)
[2020-12-30] VITALS (11 sets, daily range): BP systolic 114–163; BP diastolic 55–70; PULSE 49–69; RESP 21–29; TEMP 35.8–36.2; O2SAT 87–97
[2020-12-30] MEDS: VANCOMYCIN 125 MG CAPSULE PO ×5 (01:59→23:45)
[2020-12-30 05:22] LABS: Basophils Absolute Auto 0 /uL (0-100); Basophils Percent Auto 0.7 % (0-2); Eosinophils Absolute Auto 0 /uL (0-450); Hematocrit 41.3 % (36-46); Hemoglobin 13.2 g/dL (12.0-16.0); Lymphocytes Absolute Auto 600 /uL (1100-4500); Lymphocytes Percent Auto 11.5 % (25-40); Mean Corpuscular Hemoglobin 29.2 PG (26-34); Mean Corpuscular Volume 91.1 fL (80-100); Monocytes Absolute Auto 400 /uL (0-900); Monocytes Percent Auto 9.2 % (3-14); Neutrophils Absolute Auto 3800 /uL (1500-7000); Neutrophils Percent Auto 78.6 % (50-75); Platelet Count 235 X10^3/uL (150-400); Red Blood Cell Count 4.53 X10^6/uL (4.0-5.2); Red Cell Distribution Width 15.3 % (11.6-14.8); White Blood Cell Count 4.8 X10^3/uL (4.5-11.0)
[2020-12-30 05:25] LABS: BUN Creatinine Ratio 29.1 (6-22); Blood Urea Nitrogen 23 mg/dL (7-17); Calcium 8.6 mg/dL (8.4-10.2); Carbon Dioxide 31 mmol/L (22-32); Chloride 102 mmol/L (98-107); Estimated Glomerular Filt Rate > 60.0 mL/min (>60); Glucose 137 mg/dL (80-110); HEMOLYSIS < 15 (0-50); Sodium 137 mmol/L (137-145)
[2020-12-30 05:28] LABS: Add Manual Diff / Slide Review SLIDE REVIEW
[2020-12-30 05:29] LABS: Potassium 5.1 mmol/L (3.4-5.1)
[2020-12-30 06:21] LABS: RBC Morphology Normal Morphology
[2020-12-30] MEDS: ENOXAPARIN 40 MG/0.4 ML SYRINGE SUBCUT ×2 (08:13→21:22)
[2020-12-30] MEDS: ROPINIROLE 0.25 MG TABLET PO ×3 (08:13→21:22)
[2020-12-30] MEDS: DEXAMETHASONE 10 MG/ML VIAL 6 MG IV (08:14)
--- NOTE | 2020-12-30 10:46 | PC.NURSE ---
Pt is drowsy but oriented and easily awakens for assessment. States she feels a little better than previous days but is extremely tired and would like to just sleep. O2 sat 97% on 4L NC. Weaned to RA; however, O2 sat dropped to 87% at rest on RA. O2 titrated back up to 3L yielding O2 sat 94%. Pt is tachypneic 20s at rest. Denies feeling short of breath. Denies pain. HR ranges 40s-50s. Dr. Sorto rounded. Requested clarification of orders for bid metoprolol and tid potassium. Reported assessment findings and trending O2 sats/O2 needs. Orders received to hold AM dose of metoprolol, dc potassium chloride, titrate O2 with goal of sat greater than 92%, ok to cancel sputum cx since pt does not have productive cough.
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
--- NOTE | 2020-12-30 15:19 | PM.PN.1 ---
Subjective Subjective Interval history: Patient is a 65-year-old female admitted to the hospital with acute hypoxic respiratory failure secondary to COVID pneumonia in addition to C diff colitis. Patient reports no further diarrhea. She continues to be hypoxic both at rest and with activity. She did require some high-flow oxygen last night. However she was able to wean down to 1 L today. On wean L her O2 sat is 92%. She feels better today. She continues to have a cough. Exam Vital Signs (past 8 hours): - 12/30/20 08:20 12/30/20 09:55 12/30/20 10:00 Temperature 96.5 F L Pulse Rate 49 L 52 L Respiratory Rate 25 H 22 Blood Pressure 163/70 H Pulse Oximetry 97 95 95 12/30/20 10:10 12/30/20 10:20 12/30/20 10:40 Temperature Pulse Rate 65 53 L Respiratory Rate 28 H Blood Pressure Pulse Oximetry 87 L 90 L 94 12/30/20 13:25 12/30/20 13:45 Temperature Pulse Rate 58 L Respiratory Rate 29 H Blood Pressure 114/55 L Pulse Oximetry 87 L 92 Oxygen Delivery Method Nasal Cannula Oxygen Flow Rate 4 Narrative Exam Narrative: Pleasant female lying in bed on oxygen, Ill-appearing Resp Other: Lungs: Diffuse scattered crackles bilaterally, no expiratory wheezing or rhonchi Cardio Other: Cardiac exam: Regular rate and rhythm normal S1-S2 GI Other: Abdomen soft nontender nondistended Skin Other: Extremity no edema Objective Labs Result Diagrams: 12/30/20 05:05 12/30/20 05:05 Labs: Laboratory Results - last 24 hr 12/29/20 12/30/20 12/30/20 14:30 05:05 05:05 WBC 4.8 D RBC 4.53 Hgb 13.2 Hct 41.3 MCV 91.1 MCH 29.2 MCHC 32.0 RDW 15.3 H Plt Count 235 Neut % (Auto) 78.6 H Lymph % (Auto) 11.5 L [place] % (Auto) 9.2 Eos % (Auto) 0.0 L Baso % (Auto) 0.7 Neut # (Auto) 3800 Lymph # (Auto) 600 L [place] # (Auto) 400 Eos # (Auto) 0 Baso # (Auto) 0 Plt Morphology Comment . RBC Morphology Normal morphology Sodium 137 Potassium 5.1 Chloride 102 Carbon Dioxide 31 BUN 23 H Creatinine 0.79 Estimated GFR > 60.0 BUN/Creatinine Ratio 29.1 H Glucose 137 H Calcium 8.6 Vancomycin Trough 15.3 PFSH Social History household members: family Smoking Status: Never smoker alcohol intake: never Assessment & Plan Assessment & Plan narrative: Ms. Dempsey is a 65W with PMH of HTN, COPD, obesity who presents with fever, cough, shortness of breath found to have acute respiratory failure with COVID pneumonia and acute COPD exacerbation. 1. Acute respiratory failure from COVID pneumonia and acute COPD exacerbation -COVID positive, cxray with interestitial infiltrates -sats in low 90s, so placed on oxygen goal >93% -started on dexamethasone and remdesivir -low suspicion for bacterial pneumonia -with wheezing on exam, I believe has reactive COPD exacerbation to infection ------continue dexamethasone, remdesivir, will discontinue inhalers given her COVID and the need to avoid Aerolizing the virus -doubt bacterial pneumonia, d/c azithryomycin -now with CDIFF -start Vanco orally -patient remains hypoxic, desaturates with activity. Will continue oxygen and titrate accordingly 2. SVT -went into SVT morning of 12/28, patient was asymptomatic, blood pressure normal, rates as high as 150s -undetermined if atrial fibrillation -per my read of telemetry, had significant ectopy -likely secondary to hypokalemia -started low dose metoprolol -TSH normal -ECHO showed normal EF, no significant valvular pathology -patient developed some bradycardia. She may not require beta-yogesh, if heart rate remains low will discontinue 2. 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 Morbid obesity -will need dietary encouragement -possibly has component of JEFFREY given body habitus, but will see if can avoid NIPPV for now -likely would benefit from outpatient sleep study 4. Mild transaminitis, improved -denies EtOH use -could be from acute illness from COVID, or from possible steatosis from obesity -trend daily too ensure no rise when starting remdesivir, -improved on 5. Fibromyalgia resume usual pain regimen ambien for sleep - 6. HTN -will start GALEN-inhibitor 7. H/o TIAs -per patient not on aspirin, hold for now 8. Cdiff positive -start vanco IVF: none DVT ppx: lovenox sc CODE: DNR, proxy is Kaley Florian, sister
[2020-12-30] MEDS: REMDESIVIR 100 MG in SODIUM CHLORIDE 0.9% 230 ML 250 ML IV (17:06)
[2020-12-30 17:12] LABS: C difficie Toxins A and B, EIA Negative (Negative)
[2020-12-30] MEDS: ESCITALOPRAM 10 MG TABLET 30 MG PO (21:22)
[2020-12-30] MEDS: TRAZODONE 50 MG TABLET PO (21:22)
[2020-12-30] MEDS: ZOLPIDEM 5 MG TABLET 10 MG PO (22:30)
[2020-12-30] MEDS: HYDROCODONE/ACET 10/325 TABLET 1 TAB PO (22:30)
[2020-12-31] VITALS (12 sets, daily range): BP systolic 109–124; BP diastolic 52–60; PULSE 61–66; RESP 14–22; TEMP 35.7–36.4; O2SAT 87–95
[2020-12-31] MEDS: VANCOMYCIN 125 MG CAPSULE PO ×4 (05:47→23:45)
[2020-12-31] MEDS: ROPINIROLE 0.25 MG TABLET PO ×3 (08:10→20:55)
[2020-12-31] MEDS: ENOXAPARIN 40 MG/0.4 ML SYRINGE SUBCUT ×2 (08:10→20:55)
[2020-12-31] MEDS: DEXAMETHASONE 10 MG/ML VIAL 6 MG IV (08:10)
--- NOTE | 2020-12-31 08:48 | DI.CT.S_ITS ---
PROCEDURE: CT ANGIO CHEST PE PROTOCOL INDICATIONS: COVID s/p vaccine, still hypoxic, D-dimer >3000, r/o PE TECHNIQUE: After the administration of intravenous contrast, 2 mm thick sections acquired from the pulmonary apices to the posterior costophrenic angles. 3-dimensional maximum intensity projection (MIP) coronal and sagittal reformats were then acquired through the thorax. For radiation dose reduction, the following was used: automated exposure control, adjustment of mA and/or kV according to patient size. COMPARISON: None. FINDINGS: Image quality: Excellent. Pulmonary arteries: Pulmonary arteries are normal in size, and demonstrate no intraluminal filling defects to suggest central pulmonary embolism. Lungs and pleura: Extensive patchy ground-glass opacities and airspace consolidation in a pattern consistent with viral pneumonia. No pleural effusions or pneumothorax. Central and peripheral airways are patent. Mediastinum: Heart size is normal, without pericardial effusion. No mediastinal or hilar adenopathy. Thoracic aorta is normal in caliber and enhancement. Esophagus is normal in caliber, without hiatal hernia. Bones and chest wall: No suspicious bony lesions. Ribs and thoracic spine appear intact throughout. Thyroid gland is unremarkable. No axillary or supraclavicular adenopathy. Abdomen: Cholecystectomy clips. Visualized upper abdominal solid organs appear normal in the early arterial phase of enhancement. IMPRESSION: 1. No evidence pulmonary emboli. 2. Extensive changes of viral pneumonia. Dictated by: Brendan Wang M.D. on 12/31/2020 at 10:03 Approved by: Brendan Wang M.D. on 12/31/2020 at 10:11
[2020-12-31] MEDS: HYDROCODONE/ACET 10/325 TABLET 1 TAB PO ×2 (09:19→21:02)
--- NOTE | 2020-12-31 13:14 | PC.NURSE ---
PT REFUSED TO SIT IN CHAIR OR EVEN ON EDGE OF BED FOR LUNCH- SHE PREFERRED TO CONTINUE TO LAY ALMOST FLAT ON HER RIGHT SIDE- EVEN AFTER DISCUSSION OF ASPIRATION PRECAUTIONS
--- NOTE | 2020-12-31 14:17 | PC.NURSE ---
Addendum entered by Ottoniel Ratliff R.N. 12/31/20 14:22: Also notified Dr. Hodge of pt refusal of lisinopril. Original Note: Pt reports fatigue and weakness. Does not feel like she can get out of bed. I feel like I won't have enough air. Explained to pt that we are able to increase oxygen flow as needed and that chair would be close to bedside. Explained to pt need to mobilize to help with pulmonary hygiene as well as prevent deconditioning. She prefers to stay in the bed with HOB 5-20 degrees even while eating, despite education to risk for aspiration. I'm not going to choke. Pt has declined OOB to bathroom. Sorry, I don't have to go. Reported to Dr. Hodge. Instructed to cont. to monitor.
--- NOTE | 2020-12-31 15:50 | P.PN_ITS ---
Subjective Subjective Date Patient Seen: 12/31/20 Time Patient Seen: 15:51 Interval history: Patient is a 65-year-old female admitted to the hospital with acute hypoxic respiratory failure secondary to COVID pneumonia in addition to C diff colitis. Patient reports no further diarrhea. She continues to be hypoxic now intermittently at rest and always with activity today. She occasionally takes off her O2 at rest today at saturations are in the low 90s consistently but does desaturate to mid 80s with minimal activity. CT angio performed given elevated D-dimer on admission (>3000) and did not show evidence of PE today but does show findings c/w COVID-19 infection. Exam Vital Signs (past 8 hours): - 12/31/20 08:00 12/31/20 08:46 12/31/20 08:47 Temperature 97.5 F L Pulse Rate 61 Respiratory Rate 22 Blood Pressure 109/59 L Pulse Oximetry 93 87 L 91 12/31/20 10:07 12/31/20 10:44 12/31/20 12:03 Temperature Pulse Rate 64 Respiratory Rate 14 Blood Pressure Pulse Oximetry 93 92 92 12/31/20 14:00 12/31/20 15:34 12/31/20 15:40 Temperature Pulse Rate 65 Respiratory Rate 16 Blood Pressure Pulse Oximetry 95 95 95 Oxygen Delivery Method Nasal Cannula Oxygen Flow Rate 2 Narrative Exam Narrative: GEN: no acute distress, right lateral recumbent positioning on hospital bed. HEENT: PERRL, moist mucous membranes NECK: trachea midline, no JVD CV: regular rate and rhythm with no murmurs PULM: diminshed air movement, but mild bibasilar crackles without wheezing. ABD: soft, nontender, not distended, no organomegaly, normal bowel sounds EXT: warm and well perfused with no edema NEURO: moving all extremities Objective Labs Result Diagrams: 12/30/20 05:05 12/30/20 05:05 Labs: Laboratory Results - last 24 hr 12/28/20 19:06 C. diff Toxin A&B (EIA) Negative PFSH Social History household members: family Smoking Status: Never smoker alcohol intake: never Assessment & Plan Assessment & Plan narrative: Ms. Dempsey is a 65W with PMH of HTN, COPD, obesity who presents with fever, cough, shortness of breath found to have acute respiratory failure with COVID pneumonia and acute COPD exacerbation. 1. Acute respiratory failure from COVID pneumonia and acute COPD exacerbation -COVID positive, cxray with interestitial infiltrates -sats in low 90s, so placed on oxygen goal >93% -started on dexamethasone and remdesivir -antibiotics now discontinued. -now with C. difficile infection -start Vanco orally x 10 days -patient remains hypoxic, desaturates with activity. Will continue oxygen and titrate accordingly 2. SVT -went into SVT morning of 12/28, patient was asymptomatic, blood pressure normal, rates as high as 150s -undetermined if atrial fibrillation -per my read of telemetry, had significant ectopy -likely secondary to hypokalemia -started low dose metoprolol -TSH normal -ECHO showed normal EF, no significant valvular pathology -patient developed some bradycardia on beta yogesh. Will continue to monitor at this time. 2. Lower extremity edema, resolved -mild edema on exam -BNP only mildly elevated in 800s -think less likely CHF exacerbation -ECHO showed preserved EF, doubt CHF exacerbation, stopped lasix 3. Morbid obesity -will need dietary encouragement -possibly has component of JEFFREY given body habitus, but will see if can avoid NIPPV for now -likely would benefit from outpatient sleep study 4. Mild transaminitis, improved -denies EtOH use -could be from acute illness from COVID, or from possible steatosis from obesity -trend daily too ensure no rise when starting remdesivir, -improved on 5. Fibromyalgia resume usual pain regimen ambien for sleep 6. Elevated blood pressure - patient was hypertensive but became dizzy and hypotensive with low dose ovidio- inhibitor and currently normal BP. Will continue to monitor off of medications. 7. H/o TIAs -per patient not on aspirin, hold for now 8. Cdiff positive -start vanco as noted above IVF: none DVT ppx: lovenox sc CODE: DNR, proxy is Kaley Florian, sister
[2020-12-31] MEDS: REMDESIVIR 100 MG in SODIUM CHLORIDE 0.9% 230 ML 250 ML IV (17:10)
[2020-12-31] MEDS: TRAZODONE 50 MG TABLET PO (20:55)
[2020-12-31] MEDS: ESCITALOPRAM 10 MG TABLET 30 MG PO (20:55)
[2020-12-31] MEDS: ZOLPIDEM 5 MG TABLET 10 MG PO (21:02)
[2021-01-01 01:30] VITALS: BP 128/60; PULSE 71; RESP 18; TEMP 36.1; O2SAT 94
[2021-01-01] MEDS: VANCOMYCIN 125 MG CAPSULE PO ×3 (05:34→18:31)
[2021-01-01] MEDS: HYDROCODONE/ACET 10/325 TABLET 1 TAB PO ×3 (05:59→21:20)
--- NOTE | 2021-01-01 06:22 | PC.NURSE ---
Saturation with 3.5 liters 02 down to 87% with exertion. Encouraged deep breathing, occasional coughing this morning expectorating white thick sputum. After taking deep breath SPO2 91-93%, incontinent of urine tom & skin care done. No loose stool noted all shift, will monitor.
[2021-01-01 09:27] VITALS: BP 120/56; PULSE 75; RESP 16; TEMP 36.3; O2SAT 95
[2021-01-01] MEDS: ENOXAPARIN 40 MG/0.4 ML SYRINGE SUBCUT ×2 (09:34→21:20)
[2021-01-01] MEDS: ROPINIROLE 0.25 MG TABLET PO ×3 (09:35→21:20)
[2021-01-01] MEDS: DEXAMETHASONE 10 MG/ML VIAL 6 MG IV (09:35)
[2021-01-01 10:02] VITALS: PULSE 84; RESP 18; O2SAT 92
--- NOTE | 2021-01-01 13:44 | PC.NURSE ---
A&Ox3. VSS except O2 saturation. Currently on 3L nasal cannula sating between 89-93%. Denied pain this shift but did say she feels like her lungs are wet. Patient continues to cough and have SOB with exertion. This program writer encouraged patient to sit up to take her oral medications to prevent choking or aspiration but the patient refused saying she can take them laying down. Call light within reach, bed low.
--- NOTE | 2021-01-01 18:09 | PM.PN.1 ---
Subjective Subjective Date Patient Seen: 01/01/21 Time Patient Seen: 18:09 Interval history: Patient is a 65-year-old female admitted to the hospital with acute hypoxic respiratory failure secondary to COVID pneumonia in addition to C diff colitis. Patient reports no further diarrhea. She continues to be hypoxic now intermittently at rest and always with activity today. She occasionally takes off her O2 at rest today at saturations are in the low 90s consistently but does desaturate to mid 80s with minimal activity. O2 requirements have slightly increased today, up to 3 L via NC. Exam Vital Signs (past 8 hours): Oxygen Delivery Method Nasal Cannula Oxygen Flow Rate 3 Narrative Exam Narrative: GEN: no acute distress, right lateral recumbent positioning on hospital bed. HEENT: PERRL, moist mucous membranes NECK: trachea midline, no JVD CV: regular rate and rhythm with no murmurs PULM: diminshed air movement, but mild bibasilar crackles without wheezing. ABD: soft, nontender, not distended, no organomegaly, normal bowel sounds EXT: warm and well perfused with no edema NEURO: moving all extremities Objective Labs Result Diagrams: 12/30/20 05:05 12/30/20 05:05 [facility] Social History household members: family Smoking Status: Never smoker alcohol intake: never Assessment & Plan Assessment & Plan narrative: Ms. Dempsey is a 65W with PMH of HTN, COPD, obesity who presents with fever, cough, shortness of breath found to have acute respiratory failure with COVID pneumonia and acute COPD exacerbation. 1. Acute respiratory failure from COVID pneumonia and acute COPD exacerbation -COVID positive, cxray with interestitial infiltrates, CT with evdience of PNA. -sats in low 90s, so placed on oxygen goal >90% given COPD. -started on dexamethasone and remdesivir, continue for total 10 day course. -antibiotics now discontinued. -now with C. difficile infection -start Vanco orally x 10 days -patient remains hypoxic, desaturates with activity. Will continue oxygen and titrate accordingly -albuterol inhaler prn and robitussin for cough. -repeat inflammatory markers tomorrow. 2. SVT -went into SVT morning of 12/28, patient was asymptomatic, blood pressure normal, rates as high as 150s -undetermined if atrial fibrillation -likely secondary to hypokalemia -started low dose metoprolol, then with bradycardia after so discontinued. -TSH normal -ECHO showed normal EF, no significant valvular pathology 3. Lower extremity edema, resolved -mild edema on exam -BNP only mildly elevated in 800s -think less likely CHF exacerbation -ECHO showed preserved EF, doubt CHF exacerbation, stopped lasix 4. Morbid obesity -dietary encouragement -possibly has component of JEFFREY or OHS given body habitus -likely would benefit from outpatient sleep study 5. Mild transaminitis, improved -denies EtOH use -could be from acute illness from COVID, or from possible steatosis from obesity -trend daily too ensure no rise when starting remdesivir, -improved on 12/28 5. Fibromyalgia resume usual pain regimen ambien for sleep 6. Elevated blood pressure - patient was hypertensive but became dizzy and hypotensive with low dose ovidio-inhibitor and currently normal BP. Will continue to monitor off of medications. 7. H/o TIAs -per patient not on aspirin, hold for now 8. Cdiff positive -start vanco as noted above IVF: none DVT ppx: lovenox sc CODE: DNR, proxy is Kaley Florian, sister
[2021-01-01] MEDS: REMDESIVIR 100 MG in SODIUM CHLORIDE 0.9% 230 ML 250 ML IV (18:31)
[2021-01-01] MEDS: guaiFENesin Solution 100 MG/5 ML UDC PO (18:56)
[2021-01-01 19:58] VITALS: O2SAT 93
[2021-01-01 20:45] VITALS: BP 145/65; PULSE 61; RESP 16; TEMP 36.6; O2SAT 94
[2021-01-01] MEDS: TRAZODONE 50 MG TABLET PO (21:20)
[2021-01-01] MEDS: ESCITALOPRAM 10 MG TABLET 30 MG PO (21:20)
[2021-01-01] MEDS: ZOLPIDEM 5 MG TABLET 10 MG PO (21:21)
[2021-01-01 23:30] VITALS: BP 142/63; PULSE 64; RESP 13; TEMP 36.5; O2SAT 90
[2021-01-02] VITALS (9 sets, daily range): BP systolic 131–144; BP diastolic 61–95; PULSE 70–88; RESP 16–28; TEMP 36.1–36.9; O2SAT 88–93
[2021-01-02] MEDS: VANCOMYCIN 125 MG CAPSULE PO ×4 (00:31→17:29)
[2021-01-02 01:56] LABS: HCO3 VBG 33 mmol/L (23-28); Oxygen Saturation VBG 53 % (70-75); PCO2 VBG 42.2 mmHg (45-50); PO2 VBG 26 mmHg (35-45); Total CO2 VBG 34 mmol/L (24-29)
[2021-01-02 06:27] LABS: Add Manual Diff / Slide Review NO; Basophils Absolute Auto 0 /uL (0-100); Basophils Percent Auto 0.2 % (0-2); Eosinophils Absolute Auto 0 /uL (0-450); Eosinophils Percent Auto 0.3 % (2-4); Hematocrit 41.3 % (36-46); Hemoglobin 13.3 g/dL (12.0-16.0); Lymphocytes Absolute Auto 900 /uL (1100-4500); Lymphocytes Percent Auto 12.7 % (25-40); Mean Corpuscular HGB Conc 32.3 % (30-36); Mean Corpuscular Hemoglobin 29.1 PG (26-34); Mean Corpuscular Volume 90.1 fL (80-100); Monocytes Absolute Auto 200 /uL (0-900); Monocytes Percent Auto 2.9 % (3-14); Neutrophils Absolute Auto 5800 /uL (1500-7000); Neutrophils Percent Auto 83.9 % (50-75); Platelet Count 240 X10^3/uL (150-400); Red Blood Cell Count 4.58 X10^6/uL (4.0-5.2)
[2021-01-02 06:35] LABS: Lactate Dehydrogenase 904 U/L (313-618)
[2021-01-02 06:38] LABS: Alanine Aminotransferase 25 IU/L (<35); Alkaline Phosphatase 65 U/L (38-126); Aspartate Aminotransferase 32 IU/L (14-36); BUN Creatinine Ratio 27.4 (6-22); Bilirubin Total 0.4 mg/dL (0.2-1.3); Blood Urea Nitrogen 17 mg/dL (7-17); Calcium 8.4 mg/dL (8.4-10.2); Carbon Dioxide 34 mmol/L (22-32); Chloride 101 mmol/L (98-107); Estimated Glomerular Filt Rate > 60.0 mL/min (>60); Glucose 117 mg/dL (80-110); HEMOLYSIS < 15 (0-50); Potassium 4.1 mmol/L (3.4-5.1); Sodium 138 mmol/L (137-145)
[2021-01-02 06:39] LABS: D Dimer 1400 ng/mL (<230)
--- NOTE | 2021-01-02 07:00 | PC.NURSE ---
This RN tried to draw labs from the patients Midline. One port was flushed with NS and flushed fine but blood return did not draw back. The other port was not locked and did not flush. The RN had to leave to grab new caps and notify lab of no return. When this RN returned, the caps were changed and heparin would not flush.
[2021-01-02] MEDS: ENOXAPARIN 40 MG/0.4 ML SYRINGE SUBCUT ×2 (07:30→20:41)
[2021-01-02] MEDS: DEXAMETHASONE 10 MG/ML VIAL 6 MG IV (07:30)
[2021-01-02] MEDS: guaiFENesin Solution 100 MG/5 ML UDC PO ×2 (07:30→16:28)
--- NOTE | 2021-01-02 13:26 | CM.DPC ---
DCP Cont: Per MD, pt still requiring 2-3L O2 and about 5 more days of Remdezivir and does not have home oxygen at baseline but RT aware to assess pt closer to d/c to determine if home oxygen needed at d/c. PT not ordered yet as pt not quite medically appropriate for eval at this time but PT eval will be needed when pt can participate more. SW called pt on her cell phone as room phone not nearby (and pt on COVID+ precautions) and SW explained role and pt confirms that she recently moved to [place] from [place] and lives in a mobile home in [place] with her sister Kaley and 15 yo granddtr. Pt states she is typically independent with ADL's at baseline and somewhat confusing as pt states she has a power w/c that she uses for longer distances but no walker or cane at home. Power w/c was not brought by EMS and therefore is at home. Pt states that her sister likely cannot provide much physical assist at d/c as sister has her own HH or maybe caregiver but the 15 yo granddtr helps out a lot and can assist if needed at d/c. Pt denies any hx of SNF but states in [place] she was in the hospital with really bad cellulitis and utilized HH services at that time. Pt states she does not want SNF at d/c and doesn't feel it's needed and her preference is home and would be agreeable with HH if needed. SW discussed eventual need for PT eval to confirm she is safe for home and the need to make sure she can ambulate/complete ADL's and encouraged her to begin attempting some activities so that home could be an option and she acknowledged understanding. Plan: SW to follow closely for PT eval when medically appropriate towards determining d/c planning needs and if home will be a safe option at discharge. KARMA Ruiz
[2021-01-02] MEDS: ROPINIROLE 0.25 MG TABLET PO ×2 (13:44→20:42)
--- NOTE | 2021-01-02 14:59 | PC.NURSE ---
AM shift Pt reluctant to get OOB discussed with Dr Hodge, and Pt is to have meals OOB, Pt compliant and moving well with FWW. No loose stools this shift. C/o generalized pain. Requip for RLS. IV flushed and draws well. Labs sent late today after midline malfunction.
--- NOTE | 2021-01-02 15:40 | PM.PN.1 ---
Subjective Subjective Date Patient Seen: 01/02/21 Time Patient Seen: 15:40 Interval history: Patient is a 65-year-old female admitted to the hospital with acute hypoxic respiratory failure secondary to COVID pneumonia in addition to C diff colitis. Patient reports no further diarrhea. She continues to be hypoxic now intermittently at rest and always with activity today. She occasionally takes off her O2 at rest today at saturations are in the low 90s consistently but does desaturate to mid 80s with minimal activity. O2 requirements have slightly increased today, up to 3 L via NC. Exam Vital Signs (past 8 hours): - 01/02/21 11:25 Temperature 97.0 F L Pulse Rate 78 Respiratory Rate 16 Blood Pressure 143/95 H Pulse Oximetry 88 L Oxygen Delivery Method Nasal Cannula Oxygen Flow Rate 3 Narrative Exam Narrative: GEN: no acute distress, right lateral recumbent positioning on hospital bed. HEENT: PERRL, moist mucous membranes NECK: trachea midline, no JVD CV: regular rate and rhythm with no murmurs PULM: diminshed air movement, but mild bibasilar crackles without wheezing. ABD: soft, nontender, not distended, no organomegaly, normal bowel sounds EXT: warm and well perfused with no edema NEURO: moving all extremities Objective Labs Result Diagrams: 01/02/21 06:02 01/02/21 06:02 Labs: Laboratory Results - last 24 hr 01/02/21 01/02/21 01/02/21 00:16 06:02 06:02 WBC 7.0 RBC 4.58 Hgb 13.3 Hct 41.3 MCV 90.1 MCH 29.1 MCHC 32.3 RDW 15.0 H Plt Count 240 Neut % (Auto) 83.9 H Lymph % (Auto) 12.7 L [place] % (Auto) 2.9 L Eos % (Auto) 0.3 L Baso % (Auto) 0.2 Neut # (Auto) 5800 Lymph # (Auto) 900 L [place] # (Auto) 200 Eos # (Auto) 0 Baso # (Auto) 0 D-Dimer VBG pH 7.50 H VBG pCO2 42.2 L VBG pO2 26 L VBG HCO3 33 H VBG Total CO2 34 H VBG O2 Saturation 53 L VBG Base Excess 9.0 H Sodium 138 Potassium 4.1 Chloride 101 Carbon Dioxide 34 H BUN 17 Creatinine 0.62 Estimated GFR > 60.0 BUN/Creatinine Ratio 27.4 H Glucose 117 H Calcium 8.4 Total Bilirubin 0.4 AST 32 ALT 25 Alkaline Phosphatase 65 Lactate Dehydrogenase Total Protein 6.0 L Albumin 3.0 L Globulin 3.0 Albumin/Globulin Ratio 1.0 01/02/21 01/02/21 06:02 06:02 WBC RBC Hgb Hct MCV MCH MCHC RDW Plt Count Neut % (Auto) Lymph % (Auto) [place] % (Auto) Eos % (Auto) Baso % (Auto) Neut # (Auto) Lymph # (Auto) [place] # (Auto) Eos # (Auto) Baso # (Auto) D-Dimer 1400 H VBG pH VBG pCO2 VBG pO2 VBG HCO3 VBG Total CO2 VBG O2 Saturation VBG Base Excess Sodium Potassium Chloride Carbon Dioxide BUN Creatinine Estimated GFR BUN/Creatinine Ratio Glucose Calcium Total Bilirubin AST ALT Alkaline Phosphatase Lactate Dehydrogenase 904 H Total Protein Albumin Globulin Albumin/Globulin Ratio PFSH Social History household members: family Smoking Status: Never smoker alcohol intake: never Assessment & Plan Assessment & Plan narrative: Ms. Dempsey is a 65W with PMH of HTN, COPD, obesity who presents with fever, cough, shortness of breath found to have acute respiratory failure with COVID pneumonia and acute COPD exacerbation. 1. Acute respiratory failure from COVID pneumonia and acute COPD exacerbation -COVID positive, cxray with interestitial infiltrates, CT with evdience of PNA. -sats in low 90s, so placed on oxygen goal >90% given COPD. -started on dexamethasone and remdesivir, continue for total 10 day course. -antibiotics now discontinued. -now with C. difficile infection -started Vanco orally x 10 days -patient remains hypoxic, desaturates with activity. Will continue oxygen and titrate accordingly -albuterol inhaler prn and robitussin for cough. -repeat inflammatory markers tomorrow. 2. SVT -went into SVT morning of 12/28, patient was asymptomatic, blood pressure normal, rates as high as 150s -undetermined if atrial fibrillation -likely secondary to hypokalemia -started low dose metoprolol, then with bradycardia after so discontinued. -TSH normal -ECHO showed normal EF, no significant valvular pathology 3. Lower extremity edema, resolved -mild edema on exam -BNP only mildly elevated in 800s -think less likely CHF exacerbation -ECHO showed preserved EF, doubt CHF exacerbation, stopped lasix 4. Morbid obesity -dietary encouragement -possibly has component of JEFFREY or OHS given body habitus -likely would benefit from outpatient sleep study 5. Mild transaminitis, improved -denies EtOH use -could be from acute illness from COVID, or from possible steatosis from obesity -trend daily too ensure no rise when starting remdesivir, -improved on 12/28 5. Fibromyalgia resume usual pain regimen ambien for sleep 6. Elevated blood pressure - patient was hypertensive but became dizzy and hypotensive with low dose ovdiio-inhibitor and currently normal BP. Will continue to monitor off of medications. 7. H/o TIAs -per patient not on aspirin, hold for now 8. Cdiff positive -start vanco as noted above IVF: none DVT ppx: lovenox sc CODE: DNR, proxy is Kaley Florian, sister
[2021-01-02 17:09] LABS: Add Manual Diff / Slide Review NO; Basophils Absolute Auto 0 /uL (0-100); Basophils Percent Auto 0.3 % (0-2); Eosinophils Absolute Auto 0 /uL (0-450); Eosinophils Percent Auto 0.2 % (2-4); Hematocrit 41.2 % (36-46); Hemoglobin 13.2 g/dL (12.0-16.0); Lymphocytes Absolute Auto 500 /uL (1100-4500); Lymphocytes Percent Auto 4.9 % (25-40); Mean Corpuscular Hemoglobin 28.7 PG (26-34); Mean Corpuscular Volume 89.9 fL (80-100); Monocytes Absolute Auto 200 /uL (0-900); Monocytes Percent Auto 2.4 % (3-14); Neutrophils Absolute Auto 9000 /uL (1500-7000); Neutrophils Percent Auto 92.2 % (50-75); Platelet Count 270 X10^3/uL (150-400); Red Blood Cell Count 4.58 X10^6/uL (4.0-5.2); White Blood Cell Count 9.8 X10^3/uL (4.5-11.0)
[2021-01-02] MEDS: REMDESIVIR 100 MG in SODIUM CHLORIDE 0.9% 230 ML 250 ML IV (17:29)
[2021-01-02 17:32] LABS: Alanine Aminotransferase 26 IU/L (<35); Albumin 3.2 g/dL (3.5-5.0); Alkaline Phosphatase 74 U/L (38-126); Aspartate Aminotransferase 42 IU/L (14-36); BUN Creatinine Ratio 28.3 (6-22); Bilirubin Total 0.6 mg/dL (0.2-1.3); Blood Urea Nitrogen 17 mg/dL (7-17); Calcium 8.6 mg/dL (8.4-10.2); Carbon Dioxide 33 mmol/L (22-32); Chloride 99 mmol/L (98-107); Estimated Glomerular Filt Rate > 60.0 mL/min (>60); Globulin 3.3 g/dL (1.7-4.1); Glucose 152 mg/dL (80-110); HEMOLYSIS < 15 (0-50); Potassium 4.5 mmol/L (3.4-5.1); Sodium 136 mmol/L (137-145); Total Protein 6.5 g/dL (6.3-8.2)
--- NOTE | 2021-01-02 18:15 | PC.NURSE ---
Midline double lumen IV discontinued. 1 lumen would not flush at all, other lumen was flushed with heparin and 30 mL of NS, still would not run IV Remdesivir. Patient also moaning when midline flushed. Dr. Hodge notified, MD ordered new midline incision. At this time, Remdesivir not running. Per Gwyn in pharmacy, okay to be outside of refrigerator for a few hours.
[2021-01-02] MEDS: ALBUTEROL 2.5 MG/3 ML NEB (ADULT) INH (18:26)
--- NOTE | 2021-01-02 19:30 | DI.RAD.S_ITS ---
PROCEDURE: XR CHEST 1V INDICATIONS: worsening TECHNIQUE: One view of the chest was acquired. COMPARISON: [facility], CT, CT ANGIO CHEST PE PROTOCOL, 12/31/2020, 9:20. [facility], CR, XR CHEST 1V, 12/27/2020, 13:16. FINDINGS: Surgical changes and devices: None. Lungs and pleura: There increased patchy bilateral airspace opacities with a basilar predominance. There is also slightly increased pulmonary edema. No pleural effusions or pneumothorax. Mediastinum: There is cardiomegaly redemonstrated. Bones and chest wall: No suspicious bony lesions. Overlying soft tissues appear unremarkable. IMPRESSION: 1. Increased bilateral patchy airspace opacities with a basilar and peripheral predominance. The findings correspond to the areas of ground-glass opacity and septal thickening on prior CT and are consistent with atypical pneumonia, such as from COVID-19. 2. Slightly increased pulmonary edema. Dictated by: Solomon Rausch M.D. on 01/02/2021 at 21:17 Approved by: Solomon Rausch M.D. on 01/02/2021 at 21:19
--- NOTE | 2021-01-02 19:31 | PC.NURSE ---
Dr. Hodge notified of patients oxygen saturation. Patient currently sating at 86-87% on 5L NC. Orders followed.
[2021-01-02] MEDS: ESCITALOPRAM 10 MG TABLET 30 MG PO (20:42)
[2021-01-02] MEDS: TRAZODONE 50 MG TABLET PO (20:42)
--- NOTE | 2021-01-02 21:42 | PC.NURSE ---
CAMILLE Sofia, notified in person of patient's status post midline incision. Erasmo reported seeing a clot in the R axillary vein. No new orders received at this time.
[2021-01-02] MEDS: HYDROCODONE/ACET 10/325 TABLET 1 TAB PO (21:48)
[2021-01-03] MEDS: VANCOMYCIN 125 MG CAPSULE PO ×5 (00:30→23:31)
[2021-01-03 04:32] VITALS: BP 133/60; PULSE 68; RESP 20; TEMP 36.7; O2SAT 91
[2021-01-03 05:10] LABS: Add Manual Diff / Slide Review NO; Alanine Aminotransferase 21 IU/L (<35); Albumin 2.9 g/dL (3.5-5.0); Alkaline Phosphatase 64 U/L (38-126); Aspartate Aminotransferase 27 IU/L (14-36); BUN Creatinine Ratio 24.6 (6-22); Basophils Absolute Auto 0 /uL (0-100); Basophils Percent Auto 0.3 % (0-2); Bilirubin Total 0.4 mg/dL (0.2-1.3); Blood Urea Nitrogen 14 mg/dL (7-17); Calcium 8.3 mg/dL (8.4-10.2); Carbon Dioxide 34 mmol/L (22-32); Chloride 101 mmol/L (98-107); Eosinophils Absolute Auto 0 /uL (0-450); Eosinophils Percent Auto 0.4 % (2-4); Estimated Glomerular Filt Rate > 60.0 mL/min (>60); Glucose 128 mg/dL (80-110); HEMOLYSIS < 15 (0-50); Hematocrit 37.5 % (36-46); Hemoglobin 12.1 g/dL (12.0-16.0); Lymphocytes Absolute Auto 700 /uL (1100-4500); Mean Corpuscular HGB Conc 32.4 % (30-36); Mean Corpuscular Volume 89.5 fL (80-100); Monocytes Absolute Auto 200 /uL (0-900); Monocytes Percent Auto 3.4 % (3-14); Neutrophils Absolute Auto 5700 /uL (1500-7000); Neutrophils Percent Auto 84.9 % (50-75); Platelet Count 244 X10^3/uL (150-400); Potassium 4.1 mmol/L (3.4-5.1); Red Blood Cell Count 4.19 X10^6/uL (4.0-5.2); Red Cell Distribution Width 14.9 % (11.6-14.8); Sodium 137 mmol/L (137-145); Total Protein 5.9 g/dL (6.3-8.2); White Blood Cell Count 6.7 X10^3/uL (4.5-11.0)
[2021-01-03] MEDS: DEXAMETHASONE 10 MG/ML VIAL 6 MG IV (09:15)
[2021-01-03] MEDS: guaiFENesin Solution 100 MG/5 ML UDC PO ×2 (09:15→16:59)
[2021-01-03 09:19] VITALS: BP 138/63; PULSE 74; RESP 22; TEMP 36.8; O2SAT 87
[2021-01-03] MEDS: ROPINIROLE 0.25 MG TABLET PO ×3 (09:58→21:42)
[2021-01-03] MEDS: ENOXAPARIN 60 MG/0.6 ML SYRINGE 50 MG SUBCUT (09:58)
[2021-01-03] MEDS: TRAMADOL 50 MG TABLET PO (10:19)
--- NOTE | 2021-01-03 14:43 | P.PN_ITS ---
Subjective Subjective Date Patient Seen: 01/03/21 Time Patient Seen: 10:00 Interval history: Patient is a 65-year-old female admitted to the hospital with acute hypoxic respiratory failure secondary to COVID pneumonia in addition to C diff colitis. Patient reports no further diarrhea. She continues to be hypoxic now intermittently at rest and always with activity today. She occasionally takes off her O2 at rest today at saturations are in the low 90s consistently but does desaturate to mid 80s with minimal activity. O2 requirements stayed stable, up to 3 L via NC. Exam Vital Signs (past 8 hours): - 01/03/21 09:19 Temperature 98.2 F Pulse Rate 74 Respiratory Rate 22 Blood Pressure 138/63 Pulse Oximetry 87 L Oxygen Delivery Method Nasal Cannula Oxygen Flow Rate 10 Narrative Exam Narrative: GEN: no acute distress, right lateral recumbent positioning on hospital bed. HEENT: PERRL, moist mucous membranes NECK: trachea midline, no JVD CV: regular rate and rhythm with no murmurs PULM: diminshed air movement, but mild bibasilar crackles without wheezing. ABD: soft, nontender, not distended, no organomegaly, normal bowel sounds EXT: warm and well perfused with no edema NEURO: moving all extremities Objective Labs Result Diagrams: 01/03/21 04:40 01/03/21 04:40 Labs: Laboratory Results - last 24 hr 01/02/21 01/02/21 01/03/21 14:00 14:00 04:40 WBC 9.8 6.7 RBC 4.58 4.19 Hgb 13.2 12.1 Hct 41.2 37.5 MCV 89.9 89.5 MCH 28.7 29.0 MCHC 32.0 32.4 RDW 15.0 H 14.9 H Plt Count 270 244 Neut % (Auto) 92.2 H 84.9 H Lymph % (Auto) 4.9 L 11.0 L [place] % (Auto) 2.4 L 3.4 Eos % (Auto) 0.2 L 0.4 L Baso % (Auto) 0.3 0.3 Neut # (Auto) 9000 H 5700 Lymph # (Auto) 500 L 700 L [place] # (Auto) 200 200 Eos # (Auto) 0 0 Baso # (Auto) 0 0 Sodium 136 L Potassium 4.5 Chloride 99 Carbon Dioxide 33 H BUN 17 Creatinine 0.60 Estimated GFR > 60.0 BUN/Creatinine Ratio 28.3 H Glucose 152 H Calcium 8.6 Total Bilirubin 0.6 AST 42 H ALT 26 Alkaline Phosphatase 74 Total Protein 6.5 Albumin 3.2 L Globulin 3.3 Albumin/Globulin Ratio 1.0 01/03/21 04:40 WBC RBC Hgb Hct MCV MCH MCHC RDW Plt Count Neut % (Auto) Lymph % (Auto) [place] % (Auto) Eos % (Auto) Baso % (Auto) Neut # (Auto) Lymph # (Auto) [place] # (Auto) Eos # (Auto) Baso # (Auto) Sodium 137 Potassium 4.1 Chloride 101 Carbon Dioxide 34 H BUN 14 Creatinine 0.57 Estimated GFR > 60.0 BUN/Creatinine Ratio 24.6 H Glucose 128 H Calcium 8.3 L Total Bilirubin 0.4 AST 27 ALT 21 Alkaline Phosphatase 64 Total Protein 5.9 L Albumin 2.9 L Globulin 3.0 Albumin/Globulin Ratio 1.0 PFSH Social History household members: family Smoking Status: Never smoker alcohol intake: never Assessment & Plan Assessment & Plan narrative: Ms. Dempsey is a 65W with PMH of HTN, COPD, obesity who presents with fever, cough, shortness of breath found to have acute respiratory failure with COVID pneumonia and acute COPD exacerbation. 1. Acute respiratory failure from COVID pneumonia and acute COPD exacerbation -COVID positive, cxray with interestitial infiltrates, CT with evdience of PNA. -sats in low 90s, so placed on oxygen goal >90% given COPD. -started on dexamethasone and remdesivir, continue for total 10 day course. -antibiotics now discontinued. -now with C. difficile infection -started Vanco orally x 10 days -patient remains hypoxic, desaturates with activity. Will continue oxygen and titrate accordingly -albuterol inhaler prn and robitussin for cough. -repeat inflammatory markers tomorrow. 2. SVT -went into SVT morning of 12/28, patient was asymptomatic, blood pressure normal, rates as high as 150s -undetermined if atrial fibrillation -likely secondary to hypokalemia -started low dose metoprolol, then with bradycardia after so discontinued. -TSH normal -ECHO showed normal EF, no significant valvular pathology 3. Lower extremity edema, resolved -mild edema on exam -BNP only mildly elevated in 800s -think less likely CHF exacerbation -ECHO showed preserved EF, doubt CHF exacerbation, stopped lasix 4. Morbid obesity -dietary encouragement -possibly has component of JEFFREY or OHS given body habitus -likely would benefit from outpatient sleep study 5. Mild transaminitis, improved -denies EtOH use -could be from acute illness from COVID, or from possible steatosis from obesity -trend daily too ensure no rise when starting remdesivir, -improved on 12/28 5. Fibromyalgia resume usual pain regimen ambien for sleep 6. Elevated blood pressure - patient was hypertensive but became dizzy and hypotensive with low dose ovidio- inhibitor and currently normal BP. Will continue to monitor off of medications. 7. H/o TIAs -per patient not on aspirin, hold for now 8. Cdiff colitis -started vanco as noted above IVF: none DVT ppx: lovenox sc CODE: DNR, proxy is Kaley Florian, sister
--- NOTE | 2021-01-03 14:54 | PC.NURSE ---
Nursing AM shift Pt is A/o x3, continues to require substantial encouragement up for meals, and feels that breathing is better than yesterday. Denies pain except DÍAZ. Soda given, as Pt feels caffeine related. 2-3L this shift and doing well when NC left in place, Pt is frequently removing it I dont care for it Rational explained.
[2021-01-03] MEDS: REMDESIVIR 100 MG in SODIUM CHLORIDE 0.9% 230 ML 250 ML IV (16:59)
[2021-01-03 17:00] VITALS: BP 153/70; PULSE 90; RESP 24; TEMP 37; O2SAT 90
[2021-01-03 20:12] VITALS: PULSE 68; RESP 20; O2SAT 91
[2021-01-03] MEDS: ESCITALOPRAM 10 MG TABLET 30 MG PO (21:21)
[2021-01-03] MEDS: APIXABAN 5 MG TABLET PO (21:41)
[2021-01-03] MEDS: TRAZODONE 50 MG TABLET PO (21:42)
[2021-01-03] MEDS: ACYCLOVIR 400 MG TABLET PO (23:32)
[2021-01-03 23:37] VITALS: BP 124/61; PULSE 57; RESP 12; TEMP 36.6; O2SAT 91
[2021-01-04] MEDS: ZOLPIDEM 5 MG TABLET 10 MG PO ×2 (00:31→20:07)
[2021-01-04] MEDS: VANCOMYCIN 125 MG CAPSULE PO ×4 (05:38→23:40)
[2021-01-04 06:07] LABS: Hemoglobin 12.3 g/dL (12.0-16.0); Mean Corpuscular HGB Conc 32.3 % (30-36); Mean Corpuscular Volume 89.8 fL (80-100); Platelet Count 243 X10^3/uL (150-400); Red Blood Cell Count 4.23 X10^6/uL (4.0-5.2); Red Cell Distribution Width 15.2 % (11.6-14.8); White Blood Cell Count 7.6 X10^3/uL (4.5-11.0)
[2021-01-04 06:08] LABS: Add Manual Diff / Slide Review YES
[2021-01-04 06:20] LABS: Alanine Aminotransferase 20 IU/L (<35); Albumin 2.8 g/dL (3.5-5.0); Albumin Globulin Ratio 0.9 (1.0-2.8); Alkaline Phosphatase 66 U/L (38-126); Aspartate Aminotransferase 25 IU/L (14-36); BUN Creatinine Ratio 30.5 (6-22); Bilirubin Total 0.5 mg/dL (0.2-1.3); Blood Urea Nitrogen 18 mg/dL (7-17); Calcium 8.1 mg/dL (8.4-10.2); Carbon Dioxide 33 mmol/L (22-32); Chloride 100 mmol/L (98-107); Estimated Glomerular Filt Rate > 60.0 mL/min (>60); Glucose 113 mg/dL (80-110); HEMOLYSIS < 15 (0-50); Potassium 4.2 mmol/L (3.4-5.1); Sodium 136 mmol/L (137-145); Total Protein 5.8 g/dL (6.3-8.2)
[2021-01-04 07:10] LABS: Neutrophils Absolute Manual 6840 /uL (3000-5900); RBC Morphology Normal Morphology; Total Cells Counted 100
[2021-01-04 08:00] VITALS: BP 142/64; PULSE 64; RESP 19; TEMP 36.8; O2SAT 90
[2021-01-04] MEDS: DEXAMETHASONE 10 MG/ML VIAL 6 MG IV (08:08)
[2021-01-04] MEDS: ROPINIROLE 0.25 MG TABLET PO ×3 (08:09→20:06)
[2021-01-04] MEDS: ACYCLOVIR 400 MG TABLET PO ×3 (08:10→20:07)
[2021-01-04] MEDS: APIXABAN 5 MG TABLET PO ×2 (08:10→20:06)
[2021-01-04 08:47] VITALS: PULSE 67; RESP 20; O2SAT 92
--- NOTE | 2021-01-04 10:33 | PC.NURSE ---
Am shift Pt remains on NC @ 4L this shift, NC frequently being removed by Pt. It's making it hard to sleep Pt in bed sleeping most of shift, requires significant encouragement to get OOB for meals, immediately requesting to return to bed. Frustration with staff for recommending that she sit upright to aid in lung expansion, especially since she is unable to Prone. Continue to provide rationale for all care. Lungs remain dim, occasional nonproductive cough remains. trace edema to BLE. Discharge planning for O2 at home. Pt reports this is baseline activity level. Dual lumen midline to LUE flushes and draws well.
--- NOTE | 2021-01-04 12:42 | P.PN_ITS ---
Subjective Subjective Date Patient Seen: 01/04/21 Interval history: Patient is a 65-year-old female admitted to the hospital with acute hypoxic respiratory failure secondary to COVID pneumonia in addition to C diff colitis. Patient reports no further diarrhea. She continues to be hypoxic now intermittently at rest and always with activity today. She occasionally takes off her O2 at rest today at saturations are in the low 90s consistently but does desaturate to mid 80s with minimal activity. O2 requirements stayed stable, up to 5 L via NC. Exam Vital Signs (past 8 hours): - 01/04/21 08:00 01/04/21 08:47 Temperature 98.2 F Pulse Rate 64 67 Respiratory Rate 19 20 Blood Pressure 142/64 H Pulse Oximetry 90 L 92 Oxygen Delivery Method Nasal Cannula Oxygen Flow Rate 5 Narrative Exam Narrative: GEN: no acute distress, right lateral recumbent positioning on hospital bed. HEENT: PERRL, moist mucous membranes NECK: trachea midline, no JVD CV: regular rate and rhythm with no murmurs PULM: improved air movement, today cta b/l. ABD: soft, nontender, not distended, no organomegaly, normal bowel sounds EXT: warm and well perfused with minimal edema today. NEURO: moving all extremities Objective Labs Result Diagrams: 01/04/21 05:45 01/04/21 05:45 Labs: Laboratory Results - last 24 hr 01/04/21 01/04/21 05:45 05:45 WBC 7.6 RBC 4.23 Hgb 12.3 Hct 38.0 MCV 89.8 MCH 29.0 MCHC 32.3 RDW 15.2 H Plt Count 243 Neut % (Auto) Not Reportable Lymph % (Auto) Not Reportable [place] % (Auto) Not Reportable Eos % (Auto) Not Reportable Baso % (Auto) Not Reportable Lymph # (Auto) Not Reportable [place] # (Auto) Not Reportable Baso # (Auto) Not Reportable Total Counted 100 Seg Neutrophils % 89.0 H Band Neutrophils % 1.0 L Lymphocytes % (Manual) 7.0 L Atypical Lymphs % 1.0 H Monocytes % (Manual) 2.0 Neutrophils # (Manual) 6840 H RBC Morphology Normal morphology Sodium 136 L Potassium 4.2 Chloride 100 Carbon Dioxide 33 H BUN 18 H Creatinine 0.59 Estimated GFR > 60.0 BUN/Creatinine Ratio 30.5 H Glucose 113 H Calcium 8.1 L Total Bilirubin 0.5 AST 25 ALT 20 Alkaline Phosphatase 66 Total Protein 5.8 L Albumin 2.8 L Globulin 3.0 Albumin/Globulin Ratio 0.9 L PFSH Social History household members: family Smoking Status: Never smoker alcohol intake: never Assessment & Plan Assessment & Plan narrative: Ms. Dempsey is a 65W with PMH of HTN, COPD, obesity who presents with fever, cough, shortness of breath found to have acute respiratory failure with COVID pneumonia and acute COPD exacerbation. 1. Acute respiratory failure from COVID pneumonia and acute COPD exacerbation -COVID positive, cxray with interestitial infiltrates, CT with evdience of PNA. -sats in low 90s, so placed on oxygen goal >90% given COPD. Continues to desaturate today, 87% on room air at rest, 82% with ambulation. Improved with ambulation to 89% on 6L, on 2L at rest improved to 90%. Start to arrange home O2 as patient wishes to discharge as soon as possible. -started on dexamethasone and remdesivir, continue for total 10 day course, today is day 03/01. -antibiotics now discontinued. -now with C. difficile infection -started Vanco orally x 10 days -patient remains hypoxic, desaturates with activity. Will continue oxygen and titrate accordingly. -albuterol inhaler prn and robitussin for cough. -repeat inflammatory improving. 2. SVT -went into SVT morning of 12/28, patient was asymptomatic, blood pressure normal, rates as high as 150s -undetermined if atrial fibrillation -likely secondary to hypokalemia -started low dose metoprolol, then with bradycardia after so discontinued. -TSH normal -ECHO showed normal EF, no significant valvular pathology 3. Lower extremity edema -mild edema on exam again today but lungs clear. Continue to monitor. -BNP only mildly elevated in 800s -think less likely CHF exacerbation -ECHO showed preserved EF, doubt CHF exacerbation, stopped lasix previously but reconsider tomorrow. 4. Morbid obesity -dietary encouragement -possibly has component of JEFFREY or OHS given body habitus -likely would benefit from outpatient sleep study 5. Mild transaminitis, improved -denies EtOH use -could be from acute illness from COVID, or from possible steatosis from obesity -trend daily too ensure no rise when starting remdesivir, -improved on 12/28 5. Fibromyalgia resume usual pain regimen ambien for sleep 6. Elevated blood pressure - patient was hypertensive but became dizzy and hypotensive with low dose ovidio- inhibitor and currently normal BP. Will continue to monitor off of medications. 7. H/o TIAs -per patient not on aspirin, hold for now 8. Cdiff colitis -started vanco as noted above IVF: none DVT ppx: lovenox sc CODE: DNR, proxy is Kaley Florian, sister Dispo: plan for home tomorrow after completion of 10 days of decadron and remdesevir with home O2 if can be arranged in time. COVID-19 COVID-19 status: Positive
[2021-01-04 15:44] VITALS: BP 145/73; PULSE 87; RESP 24; TEMP 37.1; O2SAT 88
--- NOTE | 2021-01-04 16:09 | CM.DPC ---
DCP: continued: case discussed with Dr. Hodge today with plan for pt to d/c to home, likely tomorrow and oxygen. Dr. Hodge has been working with RT on getting this set up for pt. Have spoken with pt now on her cell. She confirms she is eager to return home and I think everything will work out just fine. She says her bro in law Marty and her sister will pick her up tomorrow when he gets off work at 1430. She says her sister has been working on getting her set up with a PCP. P: anticipate tomorrow and as per above.
[2021-01-04] MEDS: REMDESIVIR 100 MG in SODIUM CHLORIDE 0.9% 230 ML 250 ML IV (17:14)
[2021-01-04 20:05] VITALS: PULSE 64; RESP 20; O2SAT 91
[2021-01-04] MEDS: HYDROCODONE/ACET 10/325 TABLET 1 TAB PO (20:07)
[2021-01-04] MEDS: ESCITALOPRAM 10 MG TABLET 30 MG PO (20:07)
[2021-01-04] MEDS: TRAZODONE 50 MG TABLET PO (20:07)
--- NOTE | 2021-01-04 22:20 | PC.NURSE ---
Patient alert and oriented x3, requiring 5L NC to maintain oxygen saturations at 88-90%. Pt not complaining of any shortness of breath but when she sits up or moves, oxygen saturations rapidly drop to mid to low 80s. Patient takes at least 30 minutes to recover saturations. Lung sounds clear bilaterally. patient encouraged to sit up for meals and ambulates. Patient had one episode of incontinence, encouraged and educated on using the call light to get help for ambulating to the restroom.
[2021-01-05 04:39] VITALS: BP 124/59; PULSE 73; RESP 18; TEMP 36.3; O2SAT 92
[2021-01-05] MEDS: VANCOMYCIN 125 MG CAPSULE PO ×3 (06:02→17:13)
[2021-01-05] MEDS: HYDROCODONE/ACET 10/325 TABLET 1 TAB PO ×2 (06:09→17:17)
--- NOTE | 2021-01-05 07:38 | DI.RAD.S_ITS ---
PROCEDURE: XR CHEST 1V INDICATIONS: Hypoxia TECHNIQUE: One view of the chest was acquired. COMPARISON: [facility], CR, XR CHEST 1V, 01/02/2021, 20:09. FINDINGS: Heart size within normal limits. There is underlying vascular congestion present. Patchy bilateral pulmonary infiltrates are similar to the prior exam. Pleural spaces are clear. Osseous structures normal. IMPRESSION: Patchy bilateral pulmonary infiltrates, similar to the prior Dictated by: Maksim Resendiz M.D. on 01/05/2021 at 8:49 Approved by: Maksim Resendiz M.D. on 01/05/2021 at 8:51
[2021-01-05] MEDS: APIXABAN 5 MG TABLET PO ×2 (08:20→20:18)
[2021-01-05] MEDS: ROPINIROLE 0.25 MG TABLET PO ×3 (08:20→20:18)
[2021-01-05] MEDS: DEXAMETHASONE 10 MG/ML VIAL 6 MG IV (08:20)
[2021-01-05] MEDS: ACYCLOVIR 400 MG TABLET PO (08:20)
[2021-01-05] MEDS: FUROSEMIDE 40 MG/4 ML VIAL IV (08:20)
[2021-01-05 08:44] VITALS: PULSE 71; RESP 20; O2SAT 88
[2021-01-05 09:23] LABS: Hematocrit 42.4 % (36-46); Hemoglobin 13.7 g/dL (12.0-16.0); Mean Corpuscular HGB Conc 32.4 % (30-36); Mean Corpuscular Hemoglobin 29.2 PG (26-34); Mean Corpuscular Volume 90.3 fL (80-100); Platelet Count 298 X10^3/uL (150-400); Red Cell Distribution Width 15.5 % (11.6-14.8); White Blood Cell Count 10.7 X10^3/uL (4.5-11.0)
[2021-01-05 09:37] LABS: BUN Creatinine Ratio 28.6 (6-22); Blood Urea Nitrogen 18 mg/dL (7-17); Calcium 8.7 mg/dL (8.4-10.2); Carbon Dioxide 32 mmol/L (22-32); Chloride 101 mmol/L (98-107); Estimated Glomerular Filt Rate > 60.0 mL/min (>60); Glucose 122 mg/dL (80-110); HEMOLYSIS < 15 (0-50); Potassium 4.3 mmol/L (3.4-5.1); Sodium 137 mmol/L (137-145)
[2021-01-05 12:30] VITALS: PULSE 82
--- NOTE | 2021-01-05 12:37 | PM.PN.1 ---
Subjective Subjective Date Patient Seen: 01/05/21 Time Patient Seen: 08:00 Interval history: Today she doesn't feel any different. However, her oxygen requirement has increased. She denies shortness of breath or coughing. No abdominal pain, no diarrhea. Exam Vital Signs (past 8 hours): - 01/05/21 04:39 01/05/21 08:44 01/05/21 12:30 Temperature 97.4 F L Pulse Rate 73 71 82 Respiratory Rate 18 20 Blood Pressure 124/59 L Pulse Oximetry 92 88 L Oxygen Delivery Method Nasal Cannula Oxygen Flow Rate 6 Narrative Exam Narrative: GEN: no acute distress HEENT: PERRL, moist mucous membranes NECK: trachea midline, no JVD CV: regular rate and rhythm with no murmurs PULM: improved air movement, today cta b/l. ABD: soft, nontender, not distended, no organomegaly, normal bowel sounds EXT: warm and well perfused with minimal edema today. NEURO: moving all extremities Objective Labs Result Diagrams: 01/05/21 09:15 01/05/21 09:15 Labs: Laboratory Results - last 24 hr 01/05/21 01/05/21 09:15 09:15 WBC 10.7 RBC 4.70 Hgb 13.7 Hct 42.4 MCV 90.3 MCH 29.2 MCHC 32.4 RDW 15.5 H Plt Count 298 Sodium 137 Potassium 4.3 Chloride 101 Carbon Dioxide 32 BUN 18 H Creatinine 0.63 Estimated GFR > 60.0 BUN/Creatinine Ratio 28.6 H Glucose 122 H Calcium 8.7 PFSH Social History household members: family Smoking Status: Never smoker alcohol intake: never Assessment & Plan Assessment & Plan narrative: Ms. Dempsey is a 65W with PMH of HTN, COPD, obesity who presents with fever, cough, shortness of breath found to have acute respiratory failure with COVID pneumonia and acute COPD exacerbation. 1. Acute respiratory failure from COVID pneumonia and acute COPD exacerbation with acute pulmonary edema -COVID positive, cxray with interestitial infiltrates, CT with evdience of PNA. -sats in low 90s, so placed on oxygen goal >90% given COPD. Continues to desaturate today, now requiring 8L of oxygen -started on dexamethasone and remdesivir, continue for total 10 day course, remdesivir to dc after 01/05 -patient remains hypoxic, desaturates with activity. Will continue oxygen and titrate accordingly. -albuterol inhaler prn and robitussin for cough. -repeat inflammatory improving. -order lasix for evidence of pulmonary edema 2. SVT -went into SVT morning of 12/28, patient was asymptomatic, blood pressure normal, rates as high as 150s -undetermined if atrial fibrillation -likely secondary to hypokalemia -started low dose metoprolol, then with bradycardia after so discontinued. -TSH normal -ECHO showed normal EF, no significant valvular pathology 3. Lower extremity edema -mild edema on exam again today but lungs clear. Continue to monitor. -BNP only mildly elevated in 800s -think less likely CHF exacerbation -ECHO showed preserved EF -started lasix 01/05 4. Morbid obesity -dietary encouragement -possibly has component of JEFFREY or OHS given body habitus -likely would benefit from outpatient sleep study 5. Mild transaminitis, improved -denies EtOH use -could be from acute illness from COVID, or from possible steatosis from obesity -trend daily too ensure no rise when starting remdesivir, -improved on 12/28 5. Fibromyalgia resume usual pain regimen ambien for sleep 6. Elevated blood pressure - patient was hypertensive but became dizzy and hypotensive with low dose ovidio-inhibitor and currently normal BP. Will continue to monitor off of medications. 7. H/o TIAs -per patient not on aspirin, hold for now 8. Cdiff colitis -started vanco as noted above, plan for 10-14 day course, first day 12/28
--- NOTE | 2021-01-05 14:42 | PC.NURSE ---
PT CONTINUES TO WISH TO LAY IN BED ENTIRE DAY SHIFT- FORCED THE ISSUE AND MADE HER GET UP TO CHAIR FOR MEALS- SHE HAS BEEN INCONT OF URINE X 2 ( LARGE AMOUNTS) AND USED BSC X 2 FOR LOOSE BM'S- LUNGS WITH FEW FINE CRACKLES AT BASES OTHERWISE DIMINISHED BUT CLEAR- PT DID RECEIVE IV LASIX DOSE THIS AM - INCREASED O2 NEEDS THIS SHIFT- PT IS NOW ON 8L HFNC - SHE IS EAGER TO GO HOME BUT DOING LITTLE TO HELP HERSELF- HEPARIN LOCKED DOUBLE LUMEN MID LINE
[2021-01-05] MEDS: ALBUTEROL 2.5 MG/3 ML NEB (ADULT) INH ×2 (16:23→21:52)
[2021-01-05 16:38] VITALS: PULSE 79; RESP 20; O2SAT 93
[2021-01-05 17:11] VITALS: BP 125/62; PULSE 88; RESP 17; TEMP 36.7; O2SAT 88
[2021-01-05] MEDS: REMDESIVIR 100 MG in SODIUM CHLORIDE 0.9% 230 ML 250 ML IV (17:11)
[2021-01-05] MEDS: ESCITALOPRAM 10 MG TABLET 30 MG PO (20:18)
[2021-01-05] MEDS: ZOLPIDEM 5 MG TABLET 10 MG PO (20:18)
[2021-01-05] MEDS: TRAMADOL 50 MG TABLET PO (20:19)
[2021-01-05] MEDS: TRAZODONE 50 MG TABLET PO (20:19)
[2021-01-05 20:55] LABS: D Dimer 1006 ng/mL (<230)
[2021-01-05 21:52] VITALS: PULSE 76; RESP 20; O2SAT 92
[2021-01-06] VITALS (12 sets, daily range): BP systolic 109–145; BP diastolic 58–65; PULSE 62–90; RESP 16–21; TEMP 36.6–37.2; O2SAT 87–93
[2021-01-06] MEDS: VANCOMYCIN 125 MG CAPSULE PO ×4 (00:08→18:33)
[2021-01-06] MEDS: ALBUTEROL 2.5 MG/3 ML NEB (ADULT) INH ×4 (02:27→19:18)
[2021-01-06] MEDS: HYDROCODONE/ACET 10/325 TABLET 1 TAB PO ×3 (05:17→21:41)
[2021-01-06] MEDS: SODIUM CHLORIDE 0.9% FLUSH 10 ML IV ×3 (05:57→21:26)
[2021-01-06 05:59] LABS: Hematocrit 40.8 % (36-46); Hemoglobin 13.4 g/dL (12.0-16.0); Mean Corpuscular HGB Conc 32.8 % (30-36); Mean Corpuscular Hemoglobin 29.6 PG (26-34); Mean Corpuscular Volume 90.1 fL (80-100); Platelet Count 275 X10^3/uL (150-400); Red Blood Cell Count 4.53 X10^6/uL (4.0-5.2); Red Cell Distribution Width 15.3 % (11.6-14.8); White Blood Cell Count 8.6 X10^3/uL (4.5-11.0)
[2021-01-06 06:10] LABS: BUN Creatinine Ratio 31.7 (6-22); Blood Urea Nitrogen 20 mg/dL (7-17); Calcium 8.6 mg/dL (8.4-10.2); Carbon Dioxide 32 mmol/L (22-32); Chloride 98 mmol/L (98-107); Estimated Glomerular Filt Rate > 60.0 mL/min (>60); Glucose 151 mg/dL (80-110); HEMOLYSIS 20 (0-50); Magnesium 2.3 mg/dL (1.6-2.3); Potassium 4.5 mmol/L (3.4-5.1); Sodium 136 mmol/L (137-145)
--- NOTE | 2021-01-06 08:30 | DI.CT.S_ITS ---
PROCEDURE: CT ANGIO CHEST PE PROTOCOL INDICATIONS: covid+, chf, copd, but worse hypoxemia despite rx, ddimer hi TECHNIQUE: After the administration of intravenous contrast, 2 mm thick sections acquired from the pulmonary apices to the posterior costophrenic angles. 3-dimensional maximum intensity projection (MIP) coronal and sagittal reformats were then acquired through the thorax. For radiation dose reduction, the following was used: automated exposure control, adjustment of mA and/or kV according to patient size. COMPARISON: [facility], CT, CT ANGIO CHEST PE PROTOCOL, 12/31/2020, 9:20. FINDINGS: Image quality: Excellent. Pulmonary arteries: Pulmonary arteries are normal in size, and demonstrate no intraluminal filling defects to suggest central pulmonary embolism. Lungs and pleura: Patchy bilateral ground-glass pulmonary infiltrates have improved from the prior Mediastinum: Heart size within normal limits. Reactive appearing mediastinal nodes are similar to the prior with preserved fatty hilum. Subcarinal node is also similar measuring 1.2 cm Bones and chest wall: No suspicious bony lesions. Ribs and thoracic spine appear intact throughout. Thyroid gland unremarkable. No axillary or supraclavicular adenopathy. Abdomen: Cholecystectomy IMPRESSION: 1. No evidence of pulmonary embolism, aortic dissection or aneurysm. 2. Improving patchy bilateral ground-glass infiltrates. No pneumothorax or pleural effusion. Dictated by: Maksim Resendiz M.D. on 01/06/2021 at 11:02 Approved by: Maksmi Resendiz M.D. on 01/06/2021 at 11:10
[2021-01-06] MEDS: APIXABAN 5 MG TABLET PO ×2 (09:35→21:25)
[2021-01-06] MEDS: ROPINIROLE 0.25 MG TABLET PO ×3 (09:35→21:25)
[2021-01-06] MEDS: FUROSEMIDE 40 MG/4 ML VIAL IV ×2 (09:35→21:31)
[2021-01-06] MEDS: DEXAMETHASONE 10 MG/ML VIAL 6 MG IV (09:35)
--- NOTE | 2021-01-06 11:23 | P.PN_ITS ---
Subjective Subjective Date Patient Seen: 01/06/21 Time Patient Seen: 08:00 Interval history: This morning she still wants to go home. When I see her she is satting 82-85% on 5L oxygen. She denies shortness of breath. She is not working with PT much at all. She denies chest pain, cough, fevers/chills. Exam Vital Signs (past 8 hours): - 01/06/21 06:54 01/06/21 08:00 01/06/21 09:05 Temperature 98.0 F Pulse Rate 65 76 Respiratory Rate 18 18 Blood Pressure 145/65 H Pulse Oximetry 90 L 90 L 93 Oxygen Delivery Method Nasal Cannula Oxygen Flow Rate 4 Narrative Exam Narrative: GEN: no acute distress HEENT: PERRL, moist mucous membranes NECK: trachea midline, no JVD CV: regular rate and rhythm with no murmurs PULM: improved air movement, but poor at lung bases ABD: soft, nontender, not distended, no organomegaly, normal bowel sounds EXT: warm and well perfused with 1+ edema. NEURO: moving all extremities Objective Labs Result Diagrams: 01/06/21 05:40 01/06/21 05:40 Labs: Laboratory Results - last 24 hr 01/05/21 01/06/21 01/06/21 20:43 05:40 05:40 WBC 8.6 RBC 4.53 Hgb 13.4 Hct 40.8 MCV 90.1 MCH 29.6 MCHC 32.8 RDW 15.3 H Plt Count 275 D-Dimer 1006 H Sodium 136 L Potassium 4.5 Chloride 98 Carbon Dioxide 32 BUN 20 H Creatinine 0.63 Estimated GFR > 60.0 BUN/Creatinine Ratio 31.7 H Glucose 151 H Calcium 8.6 Magnesium 2.3 PFSH Social History household members: family Smoking Status: Never smoker alcohol intake: never Assessment & Plan Assessment & Plan narrative: Ms. Dempsey is a 65W with PMH of HTN, COPD, obesity who presents with fever, cough, shortness of breath found to have acute respiratory failure with COVID pneumonia and acute COPD exacerbation. 1. Acute respiratory failure from COVID pneumonia and acute COPD exacerbation wi th acute pulmonary edema -COVID positive, cxray with interestitial infiltrates, CT with evdience of PNA. -sats in low 90s, so placed on oxygen goal >90% given COPD. Continues to desaturate today, now requiring 8L of oxygen -started on dexamethasone and remdesivir, continue for total 10 day course, r emdesivir to dc after 01/05 -patient remains hypoxic, desaturates with activity. Will continue oxygen and titrate accordingly. -albuterol inhaler prn and robitussin for cough. -repeat inflammatory improving. -order lasix for evidence of pulmonary edema -ordered CT angio of chest as respiratory status not improving 2. SVT, resolved -went into SVT morning of 12/28, patient was asymptomatic, blood pressure normal, rates as high as 150s -undetermined if atrial fibrillation -likely secondary to hypokalemia -started low dose metoprolol, then with bradycardia after so discontinued. -TSH normal -ECHO showed normal EF, no significant valvular pathology 3. Lower extremity edema -mild edema on exam again today but lungs clear. Continue to monitor. -BNP only mildly elevated in 800s -think less likely CHF exacerbation -ECHO showed preserved EF -started lasix 01/05 4. Morbid obesity -dietary encouragement -possibly has component of JEFFREY or OHS given body habitus -likely would benefit from outpatient sleep study 5. Mild transaminitis, improved -denies EtOH use -could be from acute illness from COVID, or from possible steatosis from obesity -trend daily too ensure no rise when starting remdesivir, -improved on 12/28 5. Fibromyalgia resume usual pain regimen ambien for sleep 6. Elevated blood pressure - patient was hypertensive but became dizzy and hypotensive with low dose ovidio- inhibitor and currently normal BP. Will continue to monitor off of medications. 7. H/o TIAs -per patient not on aspirin, hold for now 8. Cdiff colitis -started vanco as noted above, plan for 10-14 day course, first day 12/28
[2021-01-06] MEDS: ESCITALOPRAM 10 MG TABLET 30 MG PO (21:25)
[2021-01-06] MEDS: TRAZODONE 50 MG TABLET PO (21:25)
[2021-01-06] MEDS: ZOLPIDEM 5 MG TABLET 10 MG PO (21:41)
[2021-01-07] MEDS: VANCOMYCIN 125 MG CAPSULE PO ×3 (00:01→12:34)
[2021-01-07 00:05] VITALS: BP 114/56; PULSE 79; RESP 18; TEMP 36.3; O2SAT 91
--- NOTE | 2021-01-07 01:39 | PC.NURSE ---
Patient is alert and oriented with flat affect. Breath sounds diminished with sat of 91% on oxygen at 6L/min per NC. Denies SOB but desats to 85% when up to BSC. HRR. Denied nausea. BT hypoactive. Received Lasix on previous shift and was incontinent of urine requiring complete bed change. Also got up to BSC and voided an additional 425cc. Is able to move herself in bed and SBA to BSC. Denied pain. Refused SCD's so reminded to ankle wave. Stated she feels weak and fatiqued. On contact isolation for c-diff and droplet + aerosolizing precautions for covid. Fall risk score is moderate and bed alarm is activated.
[2021-01-07] MEDS: SODIUM CHLORIDE 0.9% FLUSH 10 ML IV ×2 (05:50→09:21)
[2021-01-07 06:06] LABS: Hematocrit 41.1 % (36-46); Hemoglobin 13.2 g/dL (12.0-16.0); Mean Corpuscular HGB Conc 32.1 % (30-36); Mean Corpuscular Volume 90.4 fL (80-100); Platelet Count 297 X10^3/uL (150-400); Red Blood Cell Count 4.54 X10^6/uL (4.0-5.2); Red Cell Distribution Width 15.6 % (11.6-14.8); White Blood Cell Count 10.6 X10^3/uL (4.5-11.0)
[2021-01-07 06:17] LABS: Blood Urea Nitrogen 27 mg/dL (7-17); Calcium 8.5 mg/dL (8.4-10.2); Carbon Dioxide 38 mmol/L (22-32); Chloride 92 mmol/L (98-107); Estimated Glomerular Filt Rate > 60.0 mL/min (>60); Glucose 151 mg/dL (80-110); HEMOLYSIS < 15 (0-50); Magnesium 2.1 mg/dL (1.6-2.3); Potassium 3.8 mmol/L (3.4-5.1); Sodium 136 mmol/L (137-145)
[2021-01-07 08:00] VITALS: BP 103/51; PULSE 79; RESP 20; TEMP 36.7; O2SAT 91
[2021-01-07 08:25] VITALS: PULSE 70; RESP 22; O2SAT 90
[2021-01-07] MEDS: ALBUTEROL 2.5 MG/3 ML NEB (ADULT) INH ×2 (08:25→14:54)
[2021-01-07] MEDS: ROPINIROLE 0.25 MG TABLET PO ×2 (08:40→14:50)
--- NOTE | 2021-01-07 09:14 | RT ---
Addendum entered by Sachi Dixon, RT 01/07/21 15:47: PATIENT HAS SPOKEN TO [employer] AND IS AWARE OF CO-PAY OF 25%, PATIENT HAS A HOME PORTABLE CONCENTRATOR IN ROOM WELL AN E TANK FOR BACK UP, PAPERWORK AND MANUAL ARE IN PATIENTS BACK PACK. Addendum entered by Sachi Dixon, RT 01/07/21 09:15: Patient will require 3L oxygen at rest and 5L with ambulation Original Note: DME oxygen provider contacted about home oxygen at 0900 01/07/21
[2021-01-07] MEDS: APIXABAN 5 MG TABLET PO (09:22)
[2021-01-07] MEDS: FUROSEMIDE 40 MG/4 ML VIAL IV (09:23)
[2021-01-07] MEDS: DEXAMETHASONE 10 MG/ML VIAL 6 MG IV (09:23)
[2021-01-07] MEDS: guaiFENesin Solution 100 MG/5 ML UDC PO (09:24)
--- NOTE | 2021-01-07 13:12 | CM.DPC ---
Spoke to patient via phone while she was sitting in her chair about today's discharge to home. RT has arranged for home O2. Pt. vi will be here after work about 1900. Pt. is very happy to be going home and feels she will be successfull with home discharge. I provided her with the [facility] phone number because she needs to go there to address some insurance concerns. After doing that pt. denied any additional needs from CM.
--- NOTE | 2021-01-07 14:40 | PC.NURSE ---
reviewed discharge plan and post hospitalization plan of care for pending discharge later this afternoon- pt is alert/oriented - wears pull up briefs and also uses bsc or toilet in bathroom - has moved bowels today as well as urinating frequently- assisted with shower and pt got herself dressed- planning for tack picker by family member at [phone] all jpersonal things packed up and ready to go she will be discharging on 02 and using 3l nc while awake and resting and up to 6l with activity
--- NOTE | 2021-01-07 16:27 | P.DS_ITS ---
History of Present Illness History of Present Illness Chief complaint: Weakness/SOB Narrative: 65W with PMH morbid obesity, COPD on breo not on oxygen, fibromyalgia, HTN, restless leg syndrome, TIA whos is coming with with fevers and shortness of breath. She has just moved from [place] approximately two weeks ago. She states she had the Danilo COVID vaccine two months ago. She began feeling unwell nearly a week ago. She went to another hospital was diagnosed with a bacterial pneumonia, sent home with antibiotics and steroids. However she continues to feel poorly primarily with shortness of breath, cough, fevers, fatigue and diarrhea. Her cough is nonproductive. She has also noted new lower extremity swelling. But today is improved after keeping legs elevated. She has been using her albuterol 3x/day. She has previously been on lasix in the past but is not currently. In the ED, vitals were notable for a heart rate in the 90s, no fever. Initially not hypoxemic but then dropped o2 sats to 91% when I was in the room. Labs notable for normal WBC. Creatinine of 0.67. Mild transaminitis. BNP 839. COVID positive. Cxray showed bilateral interstitial infiltrates concerning for atypical pneumonia. She was given IV steroids, started on oxygen, remedesivir. She was admitted for further treatment. Asked patient about family history and she denied her family had any medical issues. 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 Acute respiratory failure from COVID pneumonia, acute COPD exacerbation, acute pulmonary edema from new acute diastolic CHF exacerbation 2. Right upper extremity DVT 3. Supraventricular tachycardia 4. Morbid obesity, BMI 51.1 5. Mild transaminitis, resolved 6. Fibromyalgia 7. History of TIAs 8. C. diff colitis Hospital Course: Ms. Dempsey is a 65W with PMH of HTN, COPD, obesity who presented with fever, cough, shortness of breath found to have acute respiratory failure with COVID pneumonia and acute COPD exacerbation. She also was noted to have pulmonary edema and lower extremity edema. ECHO was performed and consistent with acute diastolic heart failure. She had slow improvement in her response, likely partially because she did not participate when encouraged to work with PT. She also had an episode of supraventricular tachycardia up to rate as high as 150s that was secondary to hypokalemia and resolved. She was noted to have a right upper extremity DVT secondary to a midline and was started on apixaban. She also began having diarrhea and was positive for c diff colitis and ordered for oral vancomycin. Her respiratory status improved to the point where she was able to be discharged on 3L of oxygen at rest, and 5L with activity. She was ordered for a low dose lasix on discharge, she was ordered for another 2 days of oral vancomycin to complete a 10 day course for C. diff colitis. She is given a prescription for apixaban which she should take for at least 3 months for provoked PE. She is discharged with home health nursing. Exam Vital Signs (past 8 hours): Oxygen Delivery Method Nasal Cannula Oxygen Flow Rate 2 Narrative Exam Narrative: GEN: no acute distress HEENT: PERRL, moist mucous membranes NECK: trachea midline, no JVD CV: regular rate and rhythm with no murmurs PULM: improved air movement, but poor at lung bases ABD: soft, nontender, not distended, no organomegaly, normal bowel sounds EXT: warm and well perfused with 1+ edema. NEURO: moving all extremities Objective Labs Result Diagrams: 01/07/21 05:50 01/07/21 05:50 Labs: Laboratory Results - last 24 hr 01/07/21 01/07/21 05:50 05:50 WBC 10.6 RBC 4.54 Hgb 13.2 Hct 41.1 MCV 90.4 MCH 29.0 MCHC 32.1 RDW 15.6 H Plt Count 297 Sodium 136 L Potassium 3.8 Chloride 92 L Carbon Dioxide 38 H BUN 27 H Creatinine 0.75 Estimated GFR > 60.0 BUN/Creatinine Ratio 36.0 H Glucose 151 H Calcium 8.5 Magnesium 2.1 PFSH Social History household members: family Smoking Status: Never smoker alcohol intake: never Discharge Plan Discharge Plan Patient Disposition: Home Health Service Provider Discharge Comment: Ms. Dempsey was admitted with trouble breathing. She was found to have COVID pneumonia, mild congestive heart failure, and COPD exacerbation. She did improve slowly. She was not able to get off oxygen, and w ill need oxygen at home. She had a clot in her arm and will need to be on blood thinners. She had an infection in her colon called C. diff and needs to finish a few more pills of antibiotic to complete treatment. For her congestive heart failure she will be given lasix to help keep fluid off. She should avoid salty foods, she should follow closely with her primary doctor. She should perform daily exercise and healthy eating to help improve her health. She will need to setup an appointment with a primary care doctor as quickly as possible. Discharge orders & Medications Prescriptions: New vancomycin 125 mg Capsule 125 mg PO Q6H Qty: 6 RF: 0 Eliquis 5 mg Tablet 5 mg PO BID Qty: 60 RF: 0 furosemide [Lasix] 40 mg tablet 40 mg PO DAILY Qty: 30 RF: 0 Continued trazodone 50 mg Tablet 50 mg PO BEDTIME RF: 0 hydrocodone-acetaminophen 5-325 mg Tablet 1 tab PO QID RF: 0 ropinirole [Requip] 0.25 mg Tablet 0.25 mg PO TID RF: 0 escitalopram oxalate [Lexapro] 10 mg Tablet 30 mg PO BEDTIME RF: 0 Breo Ellipta 1 puff inhalation DAILY RF: 0 Discontinued zolpidem [Ambien] 10 mg Tablet 10 mg PO BEDTIME RF: 0 Diet/Activity/Treatments Diet: Low-sodium Oxygen: 3L during the day, 6L during ambulation for goal of 88-92% O2 saturation Visit Report/Discharge Packet Instructions: DI for Heart Failure, DI for Chronic Obstructive Pulmonary Disease, DI for Deep Vein Thrombosis, DI for Clostridioides difficile Infection, DI for COVID-19 (Suspected or Confirmed ) Quality MIPS - DC The patient has current or prior documentation of left ventricular ejection fraction (LVEF) less than 40%, or moderate or severely depressed left ventricular systolic function.: No
[2021-01-07 16:38] VITALS: BP 105/54; PULSE 73; O2SAT 90
--- NOTE | 2021-01-07 18:34 | PC.NURSE ---
Addendum entered by Jacey Sinclair R.N. 01/07/21 18:37: pt denied pain. had a medium BM. SBA. no n/v. no chest pain. Original Note: picc dc and all discharge teaching was done by day shift RN. script sent to pharmacy. RT set her up with O2. pt dc'd with a concentrator and a tank.
--- NOTE | 2021-01-08 10:58 | CM.DPNOTE ---
Addendum entered by Mona Adams 01/08/21 11:36: Received update from [facility] indicating that [facility] unable to accept case due to payor. [employer]ACH placed call to Camryn at [facility] and she reports that initially she believed they could accept case and then when they ran payor source this AM it was determined that they do not accept this plan. Camryn will notify patient today of change. No other agencies available due to patient not having PCP. KJS Original Note: Late entry: Sade from [facility] called to follow up on Tootie's phone call from yesterday, and said they are not contracted with patient's insurance. I will call Apryl from [facility] (who also left a message for more information) and see if they can accept this pt. who has no pcp. I will relay this information to Юлия tomorrow 01/09/21. Tess Cid CM Asst.l
--- NOTE | 2021-01-09 19:26 | PC.NURSE ---
Late Entry Remdesivr infusion completed 12/27/20 at 1925.
== END 2021-01-07 17:57 | disposition home health service (06) | DRG 177 ==
LOC: ED 14:09 → AC 15:03 → ICU 17:26 → AC 12-28 11:43 → ICU 12-28 11:44
PROVIDERS: Internal Medicine; Nurse Practitioner Family; Admitting Provider Internal Medicine; Emergency Provider Emergency Medicine; Referring Provider Emergency Medicine; Visit Provider Internal Medicine
DX: U07.1 COVID-19 (principal); J12.82 Pneumonia due to coronavirus disease 2019; J96.00 Acute respiratory failure, unspecified whether with hypoxia or hypercapnia; I50.31 Acute diastolic (congestive) heart failure; J44.1 Chronic obstructive pulmonary disease with (acute) exacerbation; Z68.43 Body mass index [BMI] 50.0-59.9, adult; I47.1 Supraventricular tachycardia; A04.72 Enterocolitis due to Clostridium difficile, not specified as recurrent; T82.868A Thrombosis due to vascular prosthetic devices, implants and grafts, initial encounter; I11.0 Hypertensive heart disease with heart failure; E66.01 Morbid (severe) obesity due to excess calories; M79.7 Fibromyalgia; R60.0 Localized edema; E87.6 Hypokalemia; Z86.73 Personal history of transient ischemic attack (TIA), and cerebral infarction without residual deficits
CPT/HCPCS: 36415; 36592; 71045; 71275; 80048; 80053; 80076; 80202; 82550; 82805; 83605; 83615; 83690; 83735; 83880; 84132; 84145; 84443; 84484; 85007; 85025; 85027; 85379; 85610; 85730; 87040; 87150; 87205; 87324; 87493; 87635; 87797; 93005; 93306; 94618; 94640; 94760; 94762; 96365; 96366; 96367; 99285; C9803; A9270; J1100; J1642; J1650; J1940; J2405; J7613; Q9967

== ENCOUNTER 2021-05-09 12:25 | Inpatient (IN) | payer OTHER, MEDICAID, SELFPAY ==
[2020-12-27 19:07] VITALS: BMI 51.7
[2021-05-09] VITALS (7 sets, daily range): BP systolic 116–141; BP diastolic 58–72; PULSE 82–89; RESP 14–22; TEMP 37.4–37.8; O2SAT 95–98; BMI 49.0
--- NOTE | 2021-05-09 13:57 | PC.NURSE ---
Pt reports 1 week of increased redness and swelling to face that started on right cheek and moved across forehead and eyes. Reports this has happened before, It a cellulitis that I get. Able to open right eye to see. Left mostly swollen shut.
--- NOTE | 2021-05-09 13:58 | DI.CT.S_ITS ---
PROCEDURE: CT FACIAL BONES W CON INDICATIONS: facial celluliits TECHNIQUE: After the administration of intravenous contrast, 2.5 mm axial sections acquired from the mid-neck to the frontal sinuses, with coronal and sagittal reformats. For radiation dose reduction, the following was used: automated exposure control, adjustment of mA and/or kV according to patient size. COMPARISON: None. FINDINGS: Image quality: Excellent. Soft tissues: No fluid collections. There is subcutaneous edema of the tissues of the forehead extending to the periorbital and nasal regions bilaterally. No enlarged lymph nodes. Vascular: Visualized vascular structures appear patent throughout. Bony vascular foramina and canals appear normal. Bones: Facial bones appear intact, without fractures, erosions, or destruction. Visualized portions of the skull base and auditory canals also appear normal. Sinuses: Paranasal sinuses are aerated without fluid levels or mucosal thickening. Mucous retention cyst versus polyp is present in the left maxillary sinus. Mastoid air cells are aerated. IMPRESSION: 1. Subcutaneous soft tissue edema overlying the forehead as well as periorbital and nasal regions bilaterally as above. No focal fluid collections are identified. Overall appearance is most consistent with cellulitis. Dictated by: Lupe Epstein M.D. on 05/09/2021 at 15:20 Approved by: Lupe Epstein M.D. on 05/09/2021 at 15:23
[2021-05-09 14:13] LABS: Add Manual Diff / Slide Review NO; Basophils Absolute Auto 100 /uL (0-100); Basophils Percent Auto 0.8 % (0-2); Eosinophils Absolute Auto 300 /uL (0-450); Eosinophils Percent Auto 2.5 % (2-4); Hematocrit 41.5 % (36-46); Hemoglobin 13.7 g/dL (12.0-16.0); Lymphocytes Absolute Auto 1100 /uL (1100-4500); Lymphocytes Percent Auto 9.9 % (25-40); Mean Corpuscular Hemoglobin 29.1 PG (26-34); Mean Corpuscular Volume 88.2 fL (80-100); Monocytes Absolute Auto 600 /uL (0-900); Neutrophils Absolute Auto 8800 /uL (1500-7000); Neutrophils Percent Auto 80.8 % (50-75); Platelet Count 287 X10^3/uL (150-400); Red Blood Cell Count 4.71 X10^6/uL (4.0-5.2); Red Cell Distribution Width 14.2 % (11.6-14.8); White Blood Cell Count 10.9 X10^3/uL (4.5-11.0)
[2021-05-09 14:20] LABS: Alanine Aminotransferase 15 IU/L (<35); Albumin 4.1 g/dL (3.5-5.0); Albumin Globulin Ratio 1.1 (1.0-2.8); Alkaline Phosphatase 98 U/L (38-126); Aspartate Aminotransferase 25 IU/L (14-36); BUN Creatinine Ratio 13.8 (6-22); Bilirubin Total 0.6 mg/dL (0.2-1.3); Blood Urea Nitrogen 11 mg/dL (7-17); Calcium 9.1 mg/dL (8.4-10.2); Carbon Dioxide 28 mmol/L (22-32); Chloride 97 mmol/L (98-107); Creatine Kinase 29 U/L (30-135); Estimated Glomerular Filt Rate > 60.0 mL/min (>60); Globulin 3.7 g/dL (1.7-4.1); Glucose 143 mg/dL (80-110); HEMOLYSIS < 15 (0-50); Lactate (Lactic Acid) 1.9 mmol/L (0.7-2.1); Potassium 3.8 mmol/L (3.4-5.1); Sodium 135 mmol/L (137-145); Total Protein 7.8 g/dL (6.3-8.2)
[2021-05-09 14:31] LABS: Troponin I < 0.012 ng/mL (0.01-0.034)
[2021-05-09] MEDS: cefTRIAXone 2,000 MG in SODIUM CHLORIDE 0.9% 100 ML 200 ML IV (14:33)
[2021-05-09 14:36] LABS: Procalcitonin 0.24 ng/mL (<0.5)
--- NOTE | 2021-05-09 14:44 | ED.SKABFB ---
HPI - Skin/Abscess/Foreign Bdy General Chief complaint: Skin/Abscess/Foreign Body Stated complaint: CELLULITIS ON THE FACE AND EYES Time Seen by Provider: 05/09/21 13:58 Source: patient Mode of arrival: Wheelchair Limitations: no limitations History of Present Illness HPI narrative: Patient is a 66-year-old female history of COPD, hypertension, morbid obesity, hypertension presenting today with 1 week of erythema over her eye. She actually has had preseptal cellulitis at least 4 times she says that she has gotten vancomycin for but every time I get her C diff. She started noticing it a week ago has progressively worsened now spread to both eyes she says the left eye was worse this morning and unable to open it prompting her to come into the emergency department. She has low-grade fever of 100.1 she has had body aches and chills. She denies chest pain shortness of breath abdominal pain nausea vomiting painful or frequent urination. She was previously admitted in December with COVID 19. She says that usually starts with drainage or something in her ear and then spreads across her face. Previous records from [facility] in [facility], reports that she had this 07/20/2020 and had extensive facial cellulitis presenting similarly. Related Data Home Medications Medication Instructions Recorded Confirmed escitalopram oxalate 10 mg tablet 30 mg PO BEDTIME 12/27/20 05/09/21 (Lexapro) hydrocodone 5 mg-acetaminophen 325 1.5 tab PO QID 12/27/20 05/09/21 mg tablet ropinirole 0.25 mg tablet (Requip) 0.25 mg PO TID 12/27/20 05/09/21 trazodone 50 mg tablet 50 mg PO BEDTIME 12/27/20 05/09/21 Breo Ellipta 1 puff INHALATION DAILY 01/07/21 05/09/21 furosemide 40 mg tablet (Lasix) 40 mg PO BEDTIME 05/09/21 05/09/21 gabapentin 300 mg capsule 300 mg PO BEDTIME 05/09/21 05/09/21 zolpidem 10 mg tablet 10 mg PO BEDTIME 05/09/21 05/09/21 Allergies Allergy/AdvReac Type Severity Reaction Status Date / Time aspirin Allergy Verified 05/09/21 12:50 Penicillins Allergy Verified 05/09/21 12:50 phenobarbital Allergy Verified 05/09/21 12:50 povidone-iodine Allergy Verified 05/09/21 12:50 [From Betadine] pregabalin [From Lyrica] Allergy Verified 05/09/21 12:50 soap [From Betadine] Allergy Verified 05/09/21 12:50 Tetanus Vaccines and Toxoid Allergy Verified 05/09/21 12:50 Review of Systems Review of Systems Narrative: GENERAL: Denies chills, fatigue, malaise, fever, sweats, travel HEENT: See HPI RESPIRATORY: Denies dyspnea, cough, wheezing, hemoptysis, sputum. CARDIOVASCULAR: Denies chest pain, palpitations, orthopnea, edema GASTROINTESTINAL: Denies nausea, vomiting, abdominal pain, diarrhea, constipation, melena. : Denies dysuria, frequency, incontinence, hematuria, urinary retention, flank pain. MUSCULOSKELETAL: Denies weakness, joint pain, or bony pain SKIN: See HPI NEUROLOGIC: Denies weakness, dizziness, headache, numbness, change in speech, confusion PSYCHIATRIC: No concerning psychosocial issues. 12 point review of systems is negative except for those stated above and HPI Patient History Social History household members: family Smoking Status: Former smoker alcohol intake: former Smoking Status: Never smoker alcohol intake frequency: holidays/special occasions only Substance Use Type: does not use Exam Initial Vital Signs Initial Vital Signs: Vital Signs Temperature 100.1 F H 05/09/21 12:45 Pulse Rate 89 05/09/21 12:45 Respiratory Rate 14 05/09/21 12:45 Blood Pressure 116/70 05/09/21 12:45 Pulse Oximetry 95 05/09/21 12:45 GENERAL: Alert 66-year-old female BMI 49 HEENT: Head atraumatic,EOMI, pupils reactive, face symmetric, [moist] mucous membranes EYES: Erythema noted both eyes and both lids. Left eye is swollen shut I am able to open it. No proptosis is appreciated in either eye. She does have EOMI Right eye 20mmHg Left eye 27mm Hg CARDIOVASCULAR: Regular rate and rhythm without murmurs, rubs or gallops. RESPIRATORY: Breath sounds equal bilaterally, no wheezes rales or rhonchi. ABDOMEN: Soft, nontender. Normoactive bowel sounds all 4 quadrants. No guarding or rebound. EXTREMITIES: Normal range of motion, no clubbing or edema. Neurovascularly intact NEUROLOGICAL: Alert and oriented x4.Normal gait and speech. SKIN: Erythema noted over both eyes both upper and lower lid Course Orders Ordered: ED Orders 05/09/21 13:17 Complete Blood Count AUTO DIFF Stat Comprehensive Metabolic Panel Stat Lactate (Lactic Acid) Stat Procalcitonin Stat Troponin & CK Cardiac Panel Stat 05/09/21 13:58 CT facial bones w con Stat EKG-12 Lead Stat 05/09/21 14:29 Blood Culture Stat 05/09/21 15:28 Urinalysis and Microscopic Stat Urine Culture Stat Hydrocodone Bitart/Acetaminophen (Hydrocodone/Acet 5/325 Tablet) 1.5 tab PO QID MARGRET Albuterol (Albuterol 2.5 Mg/3 Ml Neb (Adult)) 2.5 mg INH Q4HRWA MARGRET Albuterol (Albuterol 2.5 Mg/3 Ml Neb (Adult)) 2.5 mg INH Q2H PRN PRN Reason: Shortness Of Breath Or Wheezing Budesonide (Budesonide 0.5 Mg/2 Ml Neb) 0.5 mg INH RTBID MARGRET Enoxaparin Sodium (Enoxaparin 40 Mg/0.4 Ml Syringe) 40 mg SUBCUT DAILY MARGRET Escitalopram Oxalate (Escitalopram 10 Mg Tablet) 30 mg PO BEDTIME MARGRET Gabapentin (Gabapentin 300 Mg Capsule) 300 mg PO BEDTIME MARGRET Ceftriaxone Sodium 1,000 mg/ (Sodium Chloride) 100 mls @ 200 mls/hr IV Q24H MARGRET Daptomycin 570 mg/ Sodium (Chloride) 50 mls @ 100 mls/hr IV Q24H MARGRET Naloxone HCl (Naloxone 0.4 Mg/Ml Vial) 0.2 mg IV Q2MIN PRN PRN Reason: Opiate Reversal Trazodone HCl (Trazodone 50 Mg Tablet) 50 mg PO BEDTIME MARGRET Discontinued Medications Ceftriaxone Sodium 2,000 mg/ (Sodium Chloride) 100 mls @ 200 mls/hr IV NOW ONE Stop: 05/09/21 13:59 Last Infusion: 05/09/21 16:17 Dose: 0 mls/hr Documented by: Admin: 05/09/21 14:33 Dose: 200 mls/hr Documented by: RAUL Vancomycin HCl/Dextrose (Vancomycin) 2,000 mg in 400 mls @ 200 mls/hr IV NOW ONE Stop: 05/09/21 16:02 Last Admin: 05/09/21 16:17 Dose: Not Given Documented by: RAUL Linezolid (Zyvox) 600 mg in 300 mls @ 600 mls/hr IV NOW ONE Stop: 05/09/21 15:23 Last Infusion: 05/09/21 19:17 Dose: 0 mls/hr Documented by: Infusion: 05/09/21 16:18 Dose: 0 mls/hr Documented by: Admin: 05/09/21 16:17 Dose: 600 mls/hr Documented by: RAUL Linezolid (Zyvox) 600 mg in 300 mls @ 600 mls/hr IV Q12H MARGRET Morphine Sulfate (Morphine 2 Mg/Ml Inj) 2 mg IV NOW ONE Stop: 05/09/21 15:18 Last Admin: 05/09/21 15:40 Dose: 2 mg Documented by: RAUL Proparacaine HCl (Proparacaine 0.5% Ophth Latosha) 1 drops EYE-BOTH NOW ONE Stop: 05/09/21 16:27 Last Admin: 05/09/21 16:46 Dose: 2 drop Documented by: RAUL Vital Signs Vital signs: Vital Signs - 8 hr 05/09/21 12:45 05/09/21 15:44 Temperature 100.1 F H Pulse Rate 89 88 Respiratory Rate 14 20 Blood Pressure 116/70 124/58 L Pulse Oximetry 95 97 MDM - Skin/Abscess/Foreign Bdy Lab Data Result diagrams: 05/09/21 13:17 05/09/21 13:17 Labs: Lab Results 05/09/21 05/09/21 05/09/21 Range/Units 13:17 13:17 13:17 WBC 10.9 (4.5-11.0) X10^3/uL RBC 4.71 (4.0-5.2) X10^6/uL Hgb 13.7 (12.0-16.0) g/dL Hct 41.5 (36-46) % MCV 88.2 (80-100) fL MCH 29.1 (26-34) PG MCHC 33.0 (30-36) % RDW 14.2 (11.6-14.8) % Plt Count 287 (150-400) X10^3/uL Neut % (Auto) 80.8 H (50-75) % Lymph % (Auto) 9.9 L (25-40) % [place] % (Auto) 6.0 (3-14) % Eos % (Auto) 2.5 (2-4) % Baso % (Auto) 0.8 (0-2) % Neut # (Auto) 8800 H (2755-8517) /uL Lymph # (Auto) 1100 (7734-6511) /uL [place] # (Auto) 600 (0-900) /uL Eos # (Auto) 300 (0-450) /uL Baso # (Auto) 100 (0-100) /uL Sodium 135 L (137-145) mmol/L Potassium 3.8 (3.4-5.1) mmol/L Chloride 97 L (98-107) mmol/L Carbon Dioxide 28 (22-32) mmol/L BUN 11 (7-17) mg/dL Creatinine 0.80 (0.52-1.04) mg/dL Estimated GFR > 60.0 (>60) mL/min BUN/Creatinine Ratio 13.8 (6-22) Glucose 143 H (80-110) mg/dL Lactate 1.9 (0.7-2.1) mmol/L Calcium 9.1 (8.4-10.2) mg/dL Total Bilirubin 0.6 (0.2-1.3) mg/dL AST 25 (14-36) IU/L ALT 15 (<35) IU/L Alkaline Phosphatase 98 (38-126) U/L Total Creatine Kinase 29 L (30-135) U/L CK-MB (CK-2) TNP CK-MB (CK-2) Rel Index TNP Troponin I < 0.012 (0.01-0.034) ng/mL Total Protein 7.8 (6.3-8.2) g/dL Albumin 4.1 (3.5-5.0) g/dL Globulin 3.7 (1.7-4.1) g/dL Albumin/Globulin Ratio 1.1 (1.0-2.8) Procalcitonin 0.24 (<0.5) ng/mL Urine Color Urine Appearance Urine pH (4.5-8.0) Ur Specific [place] (1.000-1.035) Urine Protein (Negative) Urine Glucose (UA) (Negative) g/dL Urine Ketones (NEGATIVE) Urine Occult Blood (Negative) Urine Nitrate (Negative) Urine Bilirubin (NEGATIVE) Urine Urobilinogen (0.2) E.U./dL Ur Leukocyte Esterase (NEGATIVE) Urine RBC (0-5/HPF) Urine WBC (0-5/HPF) Ur Squamous Epith Cells (0-5/HPF) Urine Bacteria (None) Urine Mucus (Negative) Ur Culture Indicated? 05/09/21 Range/Units 15:28 WBC (4.5-11.0) X10^3/uL RBC (4.0-5.2) X10^6/uL Hgb (12.0-16.0) g/dL Hct (36-46) % MCV (80-100) fL MCH (26-34) PG MCHC (30-36) % RDW (11.6-14.8) % Plt Count (150-400) X10^3/uL Neut % (Auto) (50-75) % Lymph % (Auto) (25-40) % [place] % (Auto) (3-14) % Eos % (Auto) (2-4) % Baso % (Auto) (0-2) % Neut # (Auto) (9332-6582) /uL Lymph # (Auto) (2322-7597) /uL [place] # (Auto) (0-900) /uL Eos # (Auto) (0-450) /uL Baso # (Auto) (0-100) /uL Sodium (137-145) mmol/L Potassium (3.4-5.1) mmol/L Chloride (98-107) mmol/L Carbon Dioxide (22-32) mmol/L BUN (7-17) mg/dL Creatinine (0.52-1.04) mg/dL Estimated GFR (>60) mL/min BUN/Creatinine Ratio (6-22) Glucose (80-110) mg/dL Lactate (0.7-2.1) mmol/L Calcium (8.4-10.2) mg/dL Total Bilirubin (0.2-1.3) mg/dL AST (14-36) IU/L ALT (<35) IU/L Alkaline Phosphatase (38-126) U/L Total Creatine Kinase (30-135) U/L CK-MB (CK-2) CK-MB (CK-2) Rel Index Troponin I (0.01-0.034) ng/mL Total Protein (6.3-8.2) g/dL Albumin (3.5-5.0) g/dL Globulin (1.7-4.1) g/dL Albumin/Globulin Ratio (1.0-2.8) Procalcitonin (<0.5) ng/mL Urine Color Yellow Urine Appearance Sl cloudy Urine pH 6.5 (4.5-8.0) Ur Specific [place] 1.010 (1.000-1.035) Urine Protein Trace H (Negative) Urine Glucose (UA) Negative (Negative) g/dL Urine Ketones Negative (NEGATIVE) Urine Occult Blood Negative (Negative) Urine Nitrate Negative (Negative) Urine Bilirubin Negative (NEGATIVE) Urine Urobilinogen 0.2 (0.2) E.U./dL Ur Leukocyte Esterase Trace H (NEGATIVE) Urine RBC 0-1/hpf (0-5/HPF) Urine WBC 10-30/hpf H (0-5/HPF) Ur Squamous Epith Cells 1-5 /hpf (0-5/HPF) Urine Bacteria Few (2-10) H (None) Urine Mucus 1+ H (Negative) Ur Culture Indicated? Specimen cultured Imaging Data CT facial: Radiologist's Impression: PROCEDURE:? CT FACIAL BONES W CON ? INDICATIONS:? facial celluliits ? TECHNIQUE:? After the administration of intravenous contrast, 2.5 mm axial sections acquired from the mid-neck to the frontal sinuses, with coronal and sagittal reformats.? For radiation dose reduction, the following was used:? automated exposure control, adjustment of mA and/or kV according to patient size.? ? COMPARISON:? None. ? FINDINGS:? Image quality:? Excellent.? ? Soft tissues:? No fluid collections.? There is subcutaneous edema of the tissues of the forehead extending to the periorbital and nasal regions bilaterally.? No enlarged lymph nodes.? ? Vascular:? Visualized vascular structures appear patent throughout.? Bony vascular foramina and canals appear normal.? ? Bones:? Facial bones appear intact, without fractures, erosions, or destruction.? Visualized portions of the skull base and auditory canals also appear normal.? ? Sinuses:? Paranasal sinuses are aerated without fluid levels or mucosal thickening.? Mucous retention cyst versus polyp is present in the left maxillary sinus.? Mastoid air cells are aerated.? ? IMPRESSION:? ? 1. Subcutaneous soft tissue edema overlying the forehead as well as periorbital and nasal regions bilaterally as above.? No focal fluid collections are identified.? Overall appearance is most consistent with cellulitis.? ? ? Dictated by: Lupe Epstein M.D. on 05/09/2021 at 15:20 ? ? ECG Data Interpretation: Normal sinus rhythm rate 84 DE interval 158 QRS [address] changes, similar to previous EKG MDM Narrative Medical decision making narrative: Patient has low-grade fever obvious facial cellulitis probable preseptal cellulitis not orbital cellulitis. He has happened to her many times in the past typically start on her ear and then spreads to her face. I have looked in her ear she does not have otitis she does not have significant erythema on the external side of her ear. But she does have significant erythema over eyes and forehead. At this time she does not have leukocytosis. Mild elevation procalcitonin. Vitals are otherwise stable. It is unclear why patient has had multiple recurrent episodes of cellulitis. I spoke with hospitalist who requested I speak with Ophthalmology. [id number] Dr[address] suazo ophthalmology at this time agrees with IV antibiotics. If patient is stable may be discharged to clinic for further evaluation however I have told her patient likely needs multiple days of IV antibiotics left before being discharged to their clinic for further evaluation. Set this time there is nothing else for her to do. Dr. Garces hospitalist updated on ophthalmology recommendations happily except Discharge Plan Departure Patient Disposition: Admitted As Inpatient Clinical Impression: Cellulitis diffuse, face Admit Date/Time: 05/09/21 16:52 Admit Provider: Travis Garces
--- NOTE | 2021-05-09 14:45 | PC.NURSE ---
Pt is very concerned about receiving vanco because she states she gets CDiff every time she takes vanc. I relayed this to Dr. Lima and she would like to continue with the administration of vanc
[2021-05-09 15:31] LABS: Appearance Urine UA SL CLOUDY; Bilirubin Urine UA NEGATIVE (NEGATIVE); Color Urine UA YELLOW; Glucose Urine UA NEGATIVE (Negative); Ketones Urine UA NEGATIVE (NEGATIVE); Leukocyte Esterase Urine UA TRACE (NEGATIVE); Nitrite Urine UA NEGATIVE (Negative); Occult Blood Urine UA NEGATIVE (Negative); Protein Urine UA TRACE (Negative); Urobilinogen Urine UA 0.2 E.U./dL (0.2)
[2021-05-09] MEDS: MORPHINE 2 MG/ML INJ IV (15:40)
[2021-05-09 15:54] LABS: pH Urine UA 6.5 (4.5-8.0)
--- NOTE | 2021-05-09 16:12 | PC.NURSE ---
MD wishes to give linezolid instead of vanco to try to avoid Cdiff
[2021-05-09] MEDS: LINEZOLID 600 MG/300 ML IV.SOLN IV (16:17)
[2021-05-09 16:29] LABS: Bacteria Urine Few (2-10); Culture Indicated Urine Specimen Cultured; Mucus Urine 1+ (Negative); RBC Urine 0-1/HPF (0-5/HPF); Squamous Epithelial Cell Urine 1-5 /HPF (0-5/HPF); WBC Urine 10-30/HPF (0-5/HPF)
[2021-05-09] MEDS: PROPARACAINE 0.5% OPHTH SOL 1 DROPS EYE-BOTH (16:46)
--- NOTE | 2021-05-09 19:06 | P.HP_ITS ---
History of Present Illness History of Present Illness Chief complaint: CELLULITIS ON THE FACE AND EYES Narrative: 66yo female with a hx of JEFFREY with non-adherence to CPAP, chronic back pain on [place] at home and follows with pain clinic, venous insufficiency, obesity class 3, and urinary incontinence that presents with preseptal cellulitis. The patient states this began 1 week ago. She states it started with a right ear infection. It started oozing ear wax. She states that this then progressed across the right side of her buddhist, resulting in her current cellulitis. She reports that this has happened 2-3 times within the past 2-3 years. She does not know why this keeps recurring. She denies pain with eye movement, reports some difficulty in opening her eyelids but is otherwise OK to do so, and endorses some sensitivity to light. She denies rhinorrhea, sinus pain, tooth pain, ongoing ear pain. She states her right ear issue self-resolved. The patient denies taking any antibiotics for this. PSH is remarkable for cholecystectomy, urinary bladder sling which did not work, and L5 herniated disc repair. Allergies she mentioned are pregabalin, phenobarbital, penicillin and tetanus vaccine. To all of these, she endorses developing hives. She denies any relevant family hx. She lives with her sister and her pet alannah. She denies that the pet has been licking her face, or bit her. She denies any skin breakdown of her face before this began. The patient has a remote hx of smoking tobacco. She denies EtOH or illicit drug use. She reports ambulating normally at baseline without assistance at home. Patient History Family & Social History Social History: household members family Prior Living Arrangements Mobile home Safety & Behavioral: Feels Safe in Current Yes Environment Been Physically Hurt or No Threatened By a Person Suicidal Ideation Description None Suicide Plan Description No Plan Tobacco & Substance use: Smoking Status Former smoker alcohol intake former alcohol intake frequency holiday/special occasion Substance Use Type does not use Meds Home Medications and Allergies Home Medications Medication Instructions Recorded Confirmed Type escitalopram oxalate 10 mg tablet 30 mg PO BEDTIME 12/27/20 05/09/21 History (Lexapro) hydrocodone 5 mg-acetaminophen 325 1.5 tab PO QID 12/27/20 05/09/21 History mg tablet ropinirole 0.25 mg tablet (Requip) 0.25 mg PO TID 12/27/20 05/09/21 History trazodone 50 mg tablet 50 mg PO BEDTIME 12/27/20 05/09/21 History Breo Ellipta 1 puff INHALATION DAILY 01/07/21 05/09/21 History furosemide 40 mg tablet (Lasix) 40 mg PO BEDTIME 05/09/21 05/09/21 History gabapentin 300 mg capsule 300 mg PO BEDTIME 05/09/21 05/09/21 History zolpidem 10 mg tablet 10 mg PO BEDTIME 05/09/21 05/09/21 History Allergies Allergy/AdvReac Type Severity Reaction Status Date / Time aspirin Allergy Verified 05/09/21 12:50 Penicillins Allergy Verified 05/09/21 12:50 phenobarbital Allergy Verified 05/09/21 12:50 povidone-iodine Allergy Verified 05/09/21 12:50 [From Betadine] pregabalin [From Lyrica] Allergy Verified 05/09/21 12:50 soap [From Betadine] Allergy Verified 05/09/21 12:50 Tetanus Vaccines and Toxoid Allergy Verified 05/09/21 12:50 Review of Systems Constitutional Comments: Denies fever/chills, weight loss, appetite loss. Eyes Comments: Endorses skin erythema around her eyes. Denies vision changes. Cardiovascular Comments: Denies CP, SOB, peripheral edema. Respiratory Comments: Denies cough, URI sxs, recent sick contacts. Gastrointestinal Comments: Denies abd pain, n/v/d, flank pain. Exam Vital Signs (past 8 hours): - 05/09/21 12:45 05/09/21 15:44 05/09/21 17:41 Temperature 100.1 F H Pulse Rate 89 88 86 Respiratory Rate 14 20 22 Blood Pressure 116/70 124/58 L 124/64 Pulse Oximetry 95 97 98 05/09/21 17:55 Temperature 99.7 F H Pulse Rate 86 Respiratory Rate 18 Blood Pressure 141/72 H Pulse Oximetry 98 Oxygen Delivery Method Room Air Oxygen Flow Rate 0 Const Other: Patient is laying in bed comfortably upon my entering the room, in no apparent acute distress. Eyes Other: Visual can are clear. Sclera, cornea clear. Pupils equal, round and reactive to light and accommodation. EOMI. There is erythema tom-orbitally that is slightly tender to touch without purulence appreciated. Some crusting on the eyelids noted. Neck Other: No carotid bruits appreciated. Resp Other: Diminished breath sounds bilaterally but without adventitious breath sounds. Cardio Other: Regular rate and rhythm. S1 and S2 heart sounds auscultated and no extra heart sounds or murmurs appreciated. No pitting edema appreciated. GI Other: Soft, non-distended, non-tender. Bowel sounds present. Skin Other: Pre-septal cellulitis appreciated tom-orbitally and bilaterally. Extrem Other: Bilateral venous insufficiency non-pitting edema noted, with stasis dermatitis changes. Palpable dorsalis pedis pulses. Objective Labs Result Diagrams: 05/09/21 13:17 05/09/21 13:17 Labs: Laboratory Results - last 24 hr 05/09/21 05/09/21 05/09/21 13:17 13:17 13:17 WBC 10.9 RBC 4.71 Hgb 13.7 Hct 41.5 MCV 88.2 MCH 29.1 MCHC 33.0 RDW 14.2 Plt Count 287 Neut % (Auto) 80.8 H Lymph % (Auto) 9.9 L [place] % (Auto) 6.0 Eos % (Auto) 2.5 Baso % (Auto) 0.8 Neut # (Auto) 8800 H Lymph # (Auto) 1100 [place] # (Auto) 600 Eos # (Auto) 300 Baso # (Auto) 100 Sodium 135 L Potassium 3.8 Chloride 97 L Carbon Dioxide 28 BUN 11 Creatinine 0.80 Estimated GFR > 60.0 BUN/Creatinine Ratio 13.8 Glucose 143 H Lactate 1.9 Calcium 9.1 Total Bilirubin 0.6 AST 25 ALT 15 Alkaline Phosphatase 98 Total Creatine Kinase 29 L CK-MB (CK-2) TNP CK-MB (CK-2) Rel Index TNP Troponin I < 0.012 Total Protein 7.8 Albumin 4.1 Globulin 3.7 Albumin/Globulin Ratio 1.1 Procalcitonin 0.24 Urine Color Urine Appearance Urine pH Ur Specific [place] Urine Protein Urine Glucose (UA) Urine Ketones Urine Occult Blood Urine Nitrate Urine Bilirubin Urine Urobilinogen Ur Leukocyte Esterase Urine RBC Urine WBC Ur Squamous Epith Cells Urine Bacteria Urine Mucus Ur Culture Indicated? 05/09/21 15:28 WBC RBC Hgb Hct MCV MCH MCHC RDW Plt Count Neut % (Auto) Lymph % (Auto) [place] % (Auto) Eos % (Auto) Baso % (Auto) Neut # (Auto) Lymph # (Auto) [place] # (Auto) Eos # (Auto) Baso # (Auto) Sodium Potassium Chloride Carbon Dioxide BUN Creatinine Estimated GFR BUN/Creatinine Ratio Glucose Lactate Calcium Total Bilirubin AST ALT Alkaline Phosphatase Total Creatine Kinase CK-MB (CK-2) CK-MB (CK-2) Rel Index Troponin I Total Protein Albumin Globulin Albumin/Globulin Ratio Procalcitonin Urine Color Yellow Urine Appearance Sl cloudy Urine pH 6.5 Ur Specific [place] 1.010 Urine Protein Trace H Urine Glucose (UA) Negative Urine Ketones Negative Urine Occult Blood Negative Urine Nitrate Negative Urine Bilirubin Negative Urine Urobilinogen 0.2 Ur Leukocyte Esterase Trace H Urine RBC 0-1/hpf Urine WBC 10-30/hpf H Ur Squamous Epith Cells 1-5 /hpf Urine Bacteria Few (2-10) H Urine Mucus 1+ H Ur Culture Indicated? Specimen cultured Assessment & Plan Assessment & Plan narrative: Assessment: 1. Preseptal cellulitis 2. Obesity class 3 3. Hx of reported COPD 4. Hx of chronic back pain on chronic opioid therapy 5. Hx of L5 slipped disc repair 6. JEFFREY with non-adherence to home CPAP 7. Depression, currently in remission 8. Venous insufficiency 9. Urinary incontinence Plan: 1. IV Daptomycin and IV ceftriaxone on-board, started May 09. IV vancomycin has caused C. diff for the patient in the past, and IV linezolid avoided because of risk of serotonin syndrome, given she's on Lexapro. IV Unasyn could not be started due to penicillin allergy. 2. Likely contributing to many of the patient's chronic conditions. Counseling provided. 3. Patient taking Breo Ellipta inhaler at home. 4. Taking [place] 7.5 mg every 6 hours at home. 5. Patient reports surgical correction for this in the past but states it was not effective. 6. Patient reports claustrophobia with the CPAP on, and this is why she does not wear it. 7. Will resume patient's home escitalopram 30 mg nightly. 8. Patient states this has been stable. 9. She does not recall why she has this issue but states urinary sling in the past did not help. VTE prophylaxis: Lovenox 40 mg daily Disposition: PT/OT, home once clinically improved Time Spent With Patient Critical Care time: I spent a total of [] minutes of critical care time on this patient's care today; this time is exclusive of procedural time. Quality VTE Deep Vein Thrombosis/Pulmonary Embolism Present on Admission: No
[2021-05-09 19:55] LABS: COVID19 - ADMIT (NP swab/PCR) Negative (Negative)
[2021-05-09] MEDS: BUDESONIDE 0.5 MG/2 ML NEB INH (20:08)
[2021-05-09] MEDS: ALBUTEROL 2.5 MG/3 ML NEB (ADULT) INH (20:08)
[2021-05-09] MEDS: TRAZODONE 50 MG TABLET PO (21:15)
[2021-05-09] MEDS: GABAPENTIN 300 MG CAPSULE PO (21:15)
[2021-05-09] MEDS: HYDROCODONE/ACET 5/325 TABLET 1.5 TAB PO (21:15)
[2021-05-09] MEDS: ESCITALOPRAM 10 MG TABLET 30 MG PO (22:09)
[2021-05-09] MEDS: SODIUM CHLORIDE 0.9% IV (22:09)
[2021-05-09] MEDS: DAPTOMYCIN IV (22:09)
[2021-05-09] MEDS: ZOLPIDEM 5 MG TABLET 10 MG PO (22:10)
[2021-05-10] VITALS (7 sets, daily range): BP systolic 95–116; BP diastolic 48–71; PULSE 72–85; RESP 16–18; TEMP 36.4–36.9; O2SAT 93–97
[2021-05-10] MEDS: HYDROCODONE/ACET 5/325 TABLET 1.5 TAB PO ×4 (04:00→21:51)
[2021-05-10 06:27] LABS: Add Manual Diff / Slide Review NO; Basophils Absolute Auto 100 /uL (0-100); Eosinophils Absolute Auto 400 /uL (0-450); Eosinophils Percent Auto 4.1 % (2-4); Hematocrit 37.2 % (36-46); Hemoglobin 12.2 g/dL (12.0-16.0); Lymphocytes Absolute Auto 1200 /uL (1100-4500); Lymphocytes Percent Auto 11.4 % (25-40); Mean Corpuscular HGB Conc 32.8 % (30-36); Mean Corpuscular Hemoglobin 28.9 PG (26-34); Mean Corpuscular Volume 88.1 fL (80-100); Monocytes Absolute Auto 700 /uL (0-900); Monocytes Percent Auto 6.4 % (3-14); Neutrophils Absolute Auto 8100 /uL (1500-7000); Neutrophils Percent Auto 77.1 % (50-75); Platelet Count 287 X10^3/uL (150-400); Red Blood Cell Count 4.23 X10^6/uL (4.0-5.2); White Blood Cell Count 10.5 X10^3/uL (4.5-11.0)
[2021-05-10 06:55] LABS: BUN Creatinine Ratio 17.1 (6-22); Blood Urea Nitrogen 12 mg/dL (7-17); Calcium 8.5 mg/dL (8.4-10.2); Carbon Dioxide 30 mmol/L (22-32); Chloride 98 mmol/L (98-107); Estimated Glomerular Filt Rate > 60.0 mL/min (>60); Glucose 125 mg/dL (80-110); HEMOLYSIS < 15 (0-50); Potassium 3.8 mmol/L (3.4-5.1); Sodium 135 mmol/L (137-145)
[2021-05-10] MEDS: ALBUTEROL 2.5 MG/3 ML NEB (ADULT) INH ×2 (07:23→19:56)
[2021-05-10] MEDS: BUDESONIDE 0.5 MG/2 ML NEB INH ×2 (07:23→19:56)
[2021-05-10] MEDS: ENOXAPARIN 40 MG/0.4 ML SYRINGE SUBCUT ×2 (08:33→20:31)
[2021-05-10] MEDS: cefTRIAXone 1,000 MG in SODIUM CHLORIDE 0.9% 100 ML 200 ML IV (08:33)
[2021-05-10] MEDS: ROPINIROLE 0.25 MG TABLET PO ×3 (10:28→20:30)
[2021-05-10] MEDS: FAMOTIDINE 20 MG/2 ML VIAL IV ×2 (10:29→20:31)
[2021-05-10] MEDS: POLYVINYL ALCOHOL DROPS 1 DROPS EYE-BOTH ×2 (10:48→20:42)
--- NOTE | 2021-05-10 11:32 | PT.IIE ---
Physical Therapy Inpatient Evaluation/Re-Eval M1 PT/OT-IP Prior Functional Status Start: 05/10/21 13:06 Freq: NEEDED Status: Active Protocol: Document 05/10/21 11:32 AB (Rec: 05/10/21 13:16 AB [email or web address]) Medical Review Prior Functional Status Medical History Reviewed Yes Communication able to make needs known Mobility and Gait pt stated that she is modified independent with bed mobility , transfers and ambulation without AD indoors but tend to furniture cruise; uses her power w/c for outdoor mobility Activities of Daily Living and IADL's pt stated that her 16 y/o daughter assists her with dressing and shower needs Social History Household Members family Living Arrangements Mobile home Number of Floors (Floors) One Floor Number of Stairs To Enter/Railing? ramp to enter Home Environment High Toilet,Tub/Shower Home Equipment Tub Transfer Bench,Hand Held Shower,Grab Bars In Shower Additional Social History Comment pt lives with her daughter, sister and bro-in-law M2 PT-IP Current Condition Start: 05/10/21 13:06 Freq: NEEDED Status: Active Protocol: Document 05/10/21 11:32 AB (Rec: 05/10/21 13:16 AB [email or web address]) Physical Therapy Current Condition Current Condition Evaluation Date 05/10/21 Treatment Diagnosis cellulitis of the face; difficulty in walking Onset Date 05/09/21 M3 PT-IP Subjective Start: 05/10/21 13:06 Freq: NEEDED Status: Active Protocol: Document 05/10/21 11:32 AB (Rec: 05/10/21 13:16 AB [email or web address]) Subjective Physical Therapy Visit Type Type Initial Evaluation Visit Start Time 11:32 Visit Stop Time 11:50 Total Visit Minutes 18 Number of STUDENT FINANCIAL SERVICES COUNSELOR Visits 0 Physical Therapy Visit Comments Patient Comments agreeable to do PT Therapy Pain Assessment Pain When Pain Assessed At Rest Pain Present Pain Present Pain Reported Location Generalized Scale Used pt stated that she has fibromyalgia Pain Management Techniques Modification of Treatment face/around eyes Scale Used pain scale not stated Pain Management Techniques Modification of Treatment M4 PT-IP Mobility and Gait Start: 05/10/21 13:06 Freq: NEEDED Status: Active Protocol: Document 05/10/21 11:32 AB (Rec: 05/10/21 13:16 AB [email or web address]) PT-Bed Mobility Assessment Supine to Sit Supine to Sit Independent Sit to Supine Sit to Supine Independent PT-Transfer Assessment Sit to and From Stand Sit to and from Stand Independent Equipment Transfer Assistive Device None Orthotic/Prosthetic Devices or Brace: No Transfers Transfer Destination Chair Transfer Technique ambulated Transfer Ability Level of Assist Standby Assistance Comments Mobility Comments pt in bed and agreed to do PT. completed supine to sit independent. sit to stand mod I and ambulated to the window without AD SBA. antalgic gait but without LOB. pt looked through the window, ambulated more in room without AD ~ 50 ft without AD. agreed to sit on the chair and positioned. call light and table placed within reach. pt steady with ambulation. informed pt that no PT needs at this time and agreed. informed nurse. Gait Assessment Gait Gait Assistance Required: Standby Assistance Distance (Feet) 50 Able to Maintain Weight Bearing Status Yes During Gait Assistive Devices Assistive Device None Orthotic/Prosthetic Devices or Brace: No Gait Deviations General Gait Pattern Antalgic Factors Limiting Gait Function Factors Limiting Gait Function Decreased Activity Tolerance PT-Balance Assessment Sitting Balance and Reactions Static Sitting Balance Ability Normal Dynamic Sitting Balance Ability Normal Standing Balance and Reactions Static Standing Balance Ability Good Dynamic Standing Balance Ability Fair Device Used without AD M5 PT-IP Objective Assessments Start: 05/10/21 13:06 Freq: NEEDED Status: Active Protocol: Document 05/10/21 11:32 AB (Rec: 05/10/21 13:16 AB [id number]) Orientation Orientation/Cognition Level of Alertness Alert Orientation Name,Age,Birthday,Month,Date, Year,Day of Week,Place, Situation Language Function Ability No Deficits Noted Safety Awareness Understands Safety Issues Memory Description No Deficits Noted Gross Range of Motion Lower Extremity ROM Assessment Within Functional Limits Strength Lower Extremity Strength Hip 4-/5 Knee 4-/5 Muscle Tone Muscle Tone WNL Yes M6 PT-IP Treatment Start: 05/10/21 13:06 Freq: NEEDED Status: Active Protocol: Document 05/10/21 11:32 AB (Rec: 05/10/21 13:16 AB [email or web address]) Physical Therapy Treatment Education Education Provided Safety M7 PT-IP Assessment and Plan Start: 05/10/21 13:06 Freq: NEEDED Status: Active Protocol: Document 05/10/21 11:32 AB (Rec: 05/10/21 13:16 AB [id number]) PT Summary Assessment and Plan Potential Rehabilitation Potential Good Summary Assessment Summary PT diomedes completed. pt is independent with bed mobility, able to ambulate in room without AD SBA for safety. Pt does not ambulate much prior to admission and uses her power w/c for long distance/ outdoor mobility. pt stated that she has fibromyalgia and has generalized pain at all times. pt has family at home that assists her as needed. No PT intervention indicated at this time. pt agreed and nurse is aware. Frequency of Treatment Frequency Of Treatment Discharge Recommendations To Nursing Amount of Assist Needed Standby Assistance Discharge Recommendations PT Discharge Recommendations Home with Assistance Transportation Needs at Discharge Private Vehicle
[2021-05-10 12:55] LABS: Acinetobacter baumannii Not Detected (Not Detect); Candida albicans Not Detected (Not Detect); Candida glabrata Not Detected (Not Detect); Candida krusei Not Detected (Not Detect); E. coli Not Detected (Not Detect); Enterobacter cloacae complex Not Detected (Not Detect); Enterobacteriaceae species Not Detected (Not Detect); Enterococcus species Not Detected (Not Detect); Haemophilus influenzae Not Detected (Not Detect); Listeria monocytogenes Not Detected (Not Detect); Methicillin-resistant gene Not Detected (Not Detect); Neisseria meningitidis Not Detected (Not Detect); Proteus species Not Detected (Not Detect); Pseudomonas aeruginosa Not Detected (Not Detect); Serratia marcescens Not Detected (Not Detect); Staphylococcus species Detected (Not Detect); Streptococcus agalactiae (Gr B Not Detected (Not Detect); Streptococcus pneumonia Not Detected (Not Detect); Streptococcus pyogenes (Gr A) Not Detected (Not Detect); Streptococcus species Not Detected (Not Detect)
[2021-05-10 12:56] LABS: Candida parapsilosis Not Detected (Not Detect); Candida tropicalis Not Detected (Not Detect)
--- NOTE | 2021-05-10 13:57 | OT.IPNOTE ---
Spoke to pt regarding OT eval and pt states does not feel that she has any OT needs as her family is able to assist her as needed. Able to give pt energy conservation information. Pt states interested in doing pool therapy and suggested her to take to her doctor for an order. Discharge pt for OT services.
--- NOTE | 2021-05-10 15:33 | CM.DANOTE ---
DCP Assessment: Patient is a 66 yr old female who was admitted for facial cellulites. CM met with patient at the bedside and explained role. patient is alert and oriented x4 during meeting. Patient currently lives in [place] with her sister, daughter, brother in law and her dog. patient states she is independent with ambulation and does use a power wheel chair when she goes outside. Patient lives in a single level mobile home with a ramp to get in. OT discharged patient stating she has no OT needs. PT Discharged her as well stating home with assist at DC I: Human [employer] and medicaid Plan: DC home with no needs at this time. CM department will continue to follow to assist with any needs that may arise. Dede Raphael Discharge Planning/Care Management CM Discharge Assessment Start: 05/10/21 15:29 Freq: Status: Active Protocol: Document 05/10/21 15:29 HS (Rec: 05/10/21 15:33 HS [id number]) Discharge Planning Assessment Assigned Director Of Quality Control Dede Raphael DPOA/Assigned Designee Name Kaley Florian (Sister) Contact Information [phone] Advance Directives? No History Provided By Patient,Medical Record Prior Living Arrangements Mobile home Household Members family Comment Lives with her sister and her dog Type of transporation used prior to Relies on Others admit Independent with ADL's Yes: usually independent but uses power wheel chair outside Is patient alert and oriented? Yes Caregiver for Another No DME Already Rented / Owned Wheelchair Comment Has power wheelchair Barriers to Discharge No Discharge Plan Home Referrals Initiated None needed Whiteboard Updated in Patient Room with Yes name and ext. # of Director Of Quality Control Review Status In Process Next Review Type Continued Stay Review
--- NOTE | 2021-05-10 17:22 | PM.PN.1 ---
Subjective Subjective Interval history: Patient reports improvement in her preseptal cellulitis. She states the redness and warmth has improved. However, she does complain of some eye scratchiness. She states eye drops have helped her with that in the past. Exam Vital Signs (past 8 hours): - 05/10/21 11:00 Pulse Oximetry 96 Oxygen Delivery Method Room Air Oxygen Flow Rate 0 Narrative Exam Narrative: Const Other: Patient is laying in bed comfortably upon my entering the room, in no apparent acute distress. Eyes Other: Visual can are clear. Sclera, cornea clear. Pupils equal, round and reactive to light and accommodation. EOMI. There is erythema tom-orbitally that is slightly tender to touch without purulence appreciated. Some crusting on the eyelids noted. Neck Other: No carotid bruits appreciated. Resp Other: Diminished breath sounds bilaterally but without adventitious breath sounds. Cardio Other: Regular rate and rhythm. S1 and S2 heart sounds auscultated and no extra heart sounds or murmurs appreciated. No pitting edema appreciated. GI Other: Soft, non-distended, non-tender. Bowel sounds present. Skin Other: Pre-septal cellulitis appreciated tom-orbitally and bilaterally. Extrem Other: Bilateral venous insufficiency non-pitting edema noted, with stasis dermatitis changes. Palpable dorsalis pedis pulses. Objective Labs Result Diagrams: 05/10/21 05:15 05/10/21 05:15 Labs: Laboratory Results - last 24 hr 05/09/21 05/09/21 05/10/21 13:17 18:53 05:15 WBC 10.5 RBC 4.23 Hgb 12.2 Hct 37.2 MCV 88.1 MCH 28.9 MCHC 32.8 RDW 14.0 Plt Count 287 Neut % (Auto) 77.1 H Lymph % (Auto) 11.4 L [place] % (Auto) 6.4 Eos % (Auto) 4.1 H Baso % (Auto) 1.0 Neut # (Auto) 8100 H Lymph # (Auto) 1200 [place] # (Auto) 700 Eos # (Auto) 400 Baso # (Auto) 100 Sodium Potassium Chloride Carbon Dioxide BUN Creatinine Estimated GFR BUN/Creatinine Ratio Glucose Calcium Magnesium A. baumannii (PCR) Not detected Yu albicans (PCR) Not detected C. glabrata (PCR) Not detected C. krusei (PCR) Not detected C. parapsilosis (PCR) Not detected C. tropicalis (PCR) Not detected SARS-CoV-2 (PCR) Negative Enterobacteriac sp PCR Not detected E. cloacae complex PCR Not detected Enterococcus sp PCR Not detected E. coli (PCR) Not detected H. influenzae (PCR) Not detected Klebsiella oxytoca PCR Not detected Klebsiella pneumoniae Not detected List. monocytogenes PCR Not detected N. meningitidis (PCR) Not detected Proteus species (PCR) Not detected Serratia marcescens PCR Not detected Staphylococcus sp PCR Detected H Staph aureus (PCR) Not detected mecA-Methicil Res Gene Not detected Streptococcus sp PCR Not detected Group A Strep (PCR) Not detected Strep agalactiae (PCR) Not detected Strep pneumoniae (PCR) Not detected P. aeruginosa (PCR) Not detected Mikaela/B-Vanco Res Genes Not Reportable KPC-Carbap Res Gene PCR Not Reportable 05/10/21 05:15 WBC RBC Hgb Hct MCV MCH MCHC RDW Plt Count Neut % (Auto) Lymph % (Auto) [place] % (Auto) Eos % (Auto) Baso % (Auto) Neut # (Auto) Lymph # (Auto) [place] # (Auto) Eos # (Auto) Baso # (Auto) Sodium 135 L Potassium 3.8 Chloride 98 Carbon Dioxide 30 BUN 12 Creatinine 0.70 Estimated GFR > 60.0 BUN/Creatinine Ratio 17.1 Glucose 125 H Calcium 8.5 Magnesium 2.0 A. baumannii (PCR) Yu albicans (PCR) C. glabrata (PCR) C. krusei (PCR) C. parapsilosis (PCR) C. tropicalis (PCR) SARS-CoV-2 (PCR) Enterobacteriac sp PCR E. cloacae complex PCR Enterococcus sp PCR E. coli (PCR) H. influenzae (PCR) Klebsiella oxytoca PCR Klebsiella pneumoniae List. monocytogenes PCR N. meningitidis (PCR) Proteus species (PCR) Serratia marcescens PCR Staphylococcus sp PCR Staph aureus (PCR) mecA-Methicil Res Gene Streptococcus sp PCR Group A Strep (PCR) Strep agalactiae (PCR) Strep pneumoniae (PCR) P. aeruginosa (PCR) Mikaela/B-Vanco Res Genes KPC-Carbap Res Gene PCR PFSH Social History household members: family Smoking Status: Former smoker alcohol intake: former Assessment & Plan Assessment & Plan narrative: Assessment: 1. Preseptal cellulitis 2. Obesity class 3 3. Hx of reported COPD 4. Hx of chronic back pain on chronic opioid therapy 5. Hx of L5 slipped disc repair 6. JEFFREY with non-adherence to home CPAP 7. Depression, currently in remission 8. Venous insufficiency 9. Urinary incontinence Plan: 1. IV Daptomycin and IV ceftriaxone on-board, started May 09. IV vancomycin has caused C. diff for the patient in the past, and IV linezolid avoided because of risk of serotonin syndrome, given she's on Lexapro. IV Unasyn could not be started due to penicillin allergy. I did inform the patient that all antibiotics have the potential to cause C. diff, although some are more notorious than others. Simple eye solution ordered today. IV famotidine 20 mg bid ordered. Patient complained of itchiness around the affected area. She denies any recent allergen exposure, or use of new cosmetic. Unlikely to be contact dermatitis, and I do not want her to exacerbated this cellulitis with scratching. 2. Likely contributing to many of the patient's chronic conditions. Counseling provided. 3. Patient taking Breo Ellipta inhaler at home. 4. Taking [place] 7.5 mg every 6 hours at home. Patient reports following with a local pain clinic. 5. Patient reports surgical correction for this in the past but states it was not effective. 6. Patient reports claustrophobia with the CPAP on, and this is why she does not wear it. 7. Will resume patient's home escitalopram 30 mg nightly. 8. Patient states this has been stable. 9. She does not recall why she has this issue but states urinary sling in the past did not help. VTE prophylaxis: Lovenox 40 mg daily Disposition: PT/OT, home once clinically improved Time Spent With Patient Critical Care time: I spent a total of [] minutes of critical care time on this patient's care today; this time is exclusive of procedural time. Quality VTE Deep Vein Thrombosis/Pulmonary Embolism Present on Admission: No
[2021-05-10] MEDS: SODIUM CHLORIDE 0.9% IV (18:31)
[2021-05-10] MEDS: DAPTOMYCIN IV (18:31)
[2021-05-10] MEDS: ESCITALOPRAM 10 MG TABLET 30 MG PO (20:30)
[2021-05-10] MEDS: TOPIRAMATE 25 MG TABLET PO (20:30)
[2021-05-10] MEDS: TRAZODONE 50 MG TABLET PO (20:30)
[2021-05-10] MEDS: GABAPENTIN 300 MG CAPSULE PO (20:31)
[2021-05-10] MEDS: ZOLPIDEM 5 MG TABLET 10 MG PO (20:31)
[2021-05-11] VITALS (8 sets, daily range): BP systolic 94–135; BP diastolic 49–84; PULSE 71–86; RESP 16–18; TEMP 36.5–37; O2SAT 94–96
[2021-05-11] MEDS: HYDROCODONE/ACET 5/325 TABLET 1.5 TAB PO ×4 (04:12→21:11)
[2021-05-11 07:17] LABS: Add Manual Diff / Slide Review NO; Basophils Absolute Auto 100 /uL (0-100); Basophils Percent Auto 1.2 % (0-2); Eosinophils Absolute Auto 400 /uL (0-450); Eosinophils Percent Auto 6.5 % (2-4); Hematocrit 37.6 % (36-46); Hemoglobin 12.3 g/dL (12.0-16.0); Lymphocytes Absolute Auto 1300 /uL (1100-4500); Lymphocytes Percent Auto 22.9 % (25-40); Mean Corpuscular HGB Conc 32.8 % (30-36); Mean Corpuscular Volume 88.4 fL (80-100); Monocytes Absolute Auto 400 /uL (0-900); Monocytes Percent Auto 6.9 % (3-14); Neutrophils Absolute Auto 3700 /uL (1500-7000); Neutrophils Percent Auto 62.5 % (50-75); Platelet Count 294 X10^3/uL (150-400); Red Blood Cell Count 4.26 X10^6/uL (4.0-5.2); White Blood Cell Count 5.9 X10^3/uL (4.5-11.0)
[2021-05-11 07:28] LABS: BUN Creatinine Ratio 14.9 (6-22); Blood Urea Nitrogen 11 mg/dL (7-17); Calcium 8.7 mg/dL (8.4-10.2); Carbon Dioxide 32 mmol/L (22-32); Chloride 103 mmol/L (98-107); Estimated Glomerular Filt Rate > 60.0 mL/min (>60); Glucose 91 mg/dL (80-110); HEMOLYSIS < 15 (0-50); Magnesium 2.3 mg/dL (1.6-2.3); Potassium 4.2 mmol/L (3.4-5.1); Sodium 139 mmol/L (137-145)
[2021-05-11] MEDS: cefTRIAXone 1,000 MG in SODIUM CHLORIDE 0.9% 100 ML 200 ML IV (08:11)
[2021-05-11] MEDS: ENOXAPARIN 40 MG/0.4 ML SYRINGE SUBCUT ×2 (08:11→21:11)
[2021-05-11] MEDS: FAMOTIDINE 20 MG/2 ML VIAL IV (08:12)
[2021-05-11] MEDS: ROPINIROLE 0.25 MG TABLET PO ×3 (08:13→21:10)
[2021-05-11] MEDS: TOPIRAMATE 25 MG TABLET PO ×3 (08:13→21:10)
[2021-05-11] MEDS: POLYVINYL ALCOHOL DROPS 1 DROPS EYE-BOTH ×2 (08:28→15:33)
[2021-05-11] MEDS: BUDESONIDE 0.5 MG/2 ML NEB INH ×2 (09:01→21:59)
[2021-05-11] MEDS: ALBUTEROL 2.5 MG/3 ML NEB (ADULT) INH ×2 (09:02→21:59)
--- NOTE | 2021-05-11 14:36 | P.PN_ITS ---
Subjective Subjective Date Patient Seen: 05/11/21 Interval history: She is seen today to follow-up her bilateral periorbital cellulitis. The redness is apparently improving. She says this is the 3rd time she has experienced cellulitis in the same area. The underlying cause remains myst erious. Her previous episodes [place] of [place] before [place] here. Oddly she is also complaining of pressure/pain on the back of her head. Exam Vital Signs (past 8 hours): - 05/11/21 08:13 05/11/21 09:06 05/11/21 10:10 Pulse Rate 76 80 Respiratory Rate 18 18 Blood Pressure 94/49 L Pulse Oximetry 94 94 94 Oxygen Delivery Method Room Air Oxygen Flow Rate 0 Narrative Exam Narrative: Alert and oriented x3. No apparent distress. Heart is regular rate and rhythm without murmur Lungs are clear to auscultation bilaterally Extremities have no ankle edema Bilateral periorbital pink skin color changes without tenderness or warmth. There is wrinkling of the skin. There is a contiguous area across the bridge of the nose/forehead. Objective Labs Result Diagrams: 05/11/21 06:53 05/11/21 06:53 Labs: Laboratory Results - last 24 hr 05/11/21 05/11/21 06:53 06:53 WBC 5.9 RBC 4.26 Hgb 12.3 Hct 37.6 MCV 88.4 MCH 29.0 MCHC 32.8 RDW 14.0 Plt Count 294 Neut % (Auto) 62.5 Lymph % (Auto) 22.9 L [place] % (Auto) 6.9 Eos % (Auto) 6.5 H Baso % (Auto) 1.2 Neut # (Auto) 3700 Lymph # (Auto) 1300 [place] # (Auto) 400 Eos # (Auto) 400 Baso # (Auto) 100 Sodium 139 Potassium 4.2 Chloride 103 Carbon Dioxide 32 BUN 11 Creatinine 0.74 Estimated GFR > 60.0 BUN/Creatinine Ratio 14.9 Glucose 91 Calcium 8.7 Magnesium 2.3 PFSH Social History household members: family Smoking Status: Former smoker alcohol intake: former Assessment & Plan Assessment & Plan narrative: Assessment: 1. Preseptal cellulitis 2. Obesity class 3 3. Hx of reported COPD 4. Hx of chronic back pain on chronic opioid therapy 5. Hx of L5 slipped disc repair 6. JEFFREY with non-adherence to home CPAP 7. Depression, currently in remission 8. Venous insufficiency 9. Urinary incontinence Plan: 1. IV Daptomycin and IV ceftriaxone started May 09. IV vancomycin has caused C. diff for the patient in the past, and IV linezolid avoided because of risk of serotonin syndrome, given she's on Lexapro. IV Unasyn could not be started due to penicillin allergy. Simple eye solution. IV famotidine 20 mg bid ordered. Patient complained of itchiness around the affected area. She denies any recent allergen exposure, or use of new cosmetic. Unlikely to be contact dermatitis, and I do not want her to exacerbate this cellulitis with scratching. 2. Likely contributing to many of the patient's chronic conditions. Counseling provided. 3. Patient taking Breo Ellipta inhaler at home. 4. Taking [place] 7.5 mg every 6 hours at home. Patient reports following with a local pain clinic. 5. Patient reports surgical correction for this in the past but states it was not effective. 6. Patient reports claustrophobia with the CPAP on, and this is why she does not wear it. 7. Will resume patient's home escitalopram 30 mg nightly. 8. Patient states this has been stable. 9. She does not recall why she has this issue but states urinary sling in the past did not help. VTE prophylaxis: Lovenox 40 mg daily Disposition: PT/OT, home once clinically improved, likely Saturday 05/12. Time Spent With Patient Critical Care time: I spent a total of [] minutes of critical care time on this patient's care today; this time is exclusive of procedural time. Quality VTE Deep Vein Thrombosis/Pulmonary Embolism Present on Admission: No
[2021-05-11] MEDS: DAPTOMYCIN IV (18:37)
[2021-05-11] MEDS: SODIUM CHLORIDE 0.9% IV (18:37)
[2021-05-11] MEDS: ZOLPIDEM 5 MG TABLET 10 MG PO (21:10)
[2021-05-11] MEDS: GABAPENTIN 300 MG CAPSULE PO (21:10)
[2021-05-11] MEDS: ESCITALOPRAM 10 MG TABLET 30 MG PO (21:10)
[2021-05-11] MEDS: TRAZODONE 50 MG TABLET PO (21:10)
[2021-05-11] MEDS: FAMOTIDINE 20 MG TABLET PO (21:10)
[2021-05-12] VITALS (7 sets, daily range): BP systolic 102–114; BP diastolic 50–70; PULSE 68–87; RESP 14–18; TEMP 36.2–36.7; O2SAT 93–96
[2021-05-12] MEDS: HYDROCODONE/ACET 5/325 TABLET 1.5 TAB PO ×4 (04:14→21:14)
[2021-05-12 06:08] LABS: Add Manual Diff / Slide Review NO; Basophils Absolute Auto 100 /uL (0-100); Basophils Percent Auto 1.1 % (0-2); Eosinophils Absolute Auto 500 /uL (0-450); Hematocrit 36.6 % (36-46); Hemoglobin 11.7 g/dL (12.0-16.0); Lymphocytes Absolute Auto 1400 /uL (1100-4500); Lymphocytes Percent Auto 21.1 % (25-40); Mean Corpuscular HGB Conc 32.1 % (30-36); Mean Corpuscular Hemoglobin 28.5 PG (26-34); Mean Corpuscular Volume 88.8 fL (80-100); Monocytes Absolute Auto 400 /uL (0-900); Monocytes Percent Auto 6.2 % (3-14); Neutrophils Absolute Auto 4200 /uL (1500-7000); Neutrophils Percent Auto 64.6 % (50-75); Platelet Count 291 X10^3/uL (150-400); Red Blood Cell Count 4.13 X10^6/uL (4.0-5.2); Red Cell Distribution Width 14.2 % (11.6-14.8); White Blood Cell Count 6.5 X10^3/uL (4.5-11.0)
[2021-05-12 06:15] LABS: BUN Creatinine Ratio 19.4 (6-22); Blood Urea Nitrogen 14 mg/dL (7-17); Calcium 8.6 mg/dL (8.4-10.2); Carbon Dioxide 32 mmol/L (22-32); Chloride 104 mmol/L (98-107); Estimated Glomerular Filt Rate > 60.0 mL/min (>60); Glucose 106 mg/dL (80-110); HEMOLYSIS < 15 (0-50); Magnesium 2.3 mg/dL (1.6-2.3); Potassium 4.2 mmol/L (3.4-5.1); Sodium 139 mmol/L (137-145)
[2021-05-12] MEDS: ALBUTEROL 2.5 MG/3 ML NEB (ADULT) INH ×2 (07:30→18:14)
[2021-05-12] MEDS: BUDESONIDE 0.5 MG/2 ML NEB INH ×2 (07:30→18:14)
[2021-05-12] MEDS: cefTRIAXone 1,000 MG in SODIUM CHLORIDE 0.9% 100 ML 200 ML IV (09:12)
[2021-05-12] MEDS: ENOXAPARIN 40 MG/0.4 ML SYRINGE SUBCUT ×2 (09:14→21:12)
[2021-05-12] MEDS: ROPINIROLE 0.25 MG TABLET PO ×3 (09:15→21:13)
[2021-05-12] MEDS: FAMOTIDINE 20 MG TABLET PO ×2 (09:15→21:11)
[2021-05-12] MEDS: TOPIRAMATE 25 MG TABLET PO ×3 (09:15→21:12)
--- NOTE | 2021-05-12 12:36 | CM.DPC ---
DCP Cont: Discussed patient during team rounds. Hospitalist will be seeing patient today to determine if she is ready for discharge. Patient resides with sister and brother in law in mobile home in [place]. She has already worked with therapy and has been cleared. P: DCP to continue to follow for any needs. Plan at this time is home when medically stable. Dulce Segundo RN/Folding Machine Tender
[2021-05-12] MEDS: DOXYCYCLINE HYCLATE 100 MG TABLET PO ×2 (13:09→21:11)
[2021-05-12] MEDS: DEXAMETHASONE 4 MG/ML VIAL IV (13:09)
[2021-05-12] MEDS: SODIUM CHLORIDE 0.9% FLUSH 10 ML IV ×2 (13:10→22:35)
[2021-05-12 14:51] LABS: Appearance Urine UA CLEAR; Bilirubin Urine UA NEGATIVE (NEGATIVE); Color Urine UA YELLOW; Glucose Urine UA NEGATIVE (Negative); Ketones Urine UA NEGATIVE (NEGATIVE); Leukocyte Esterase Urine UA NEGATIVE (NEGATIVE); Nitrite Urine UA NEGATIVE (Negative); Occult Blood Urine UA NEGATIVE (Negative); Protein Urine UA TRACE (Negative); Specific Gravity Urine UA 1.015 (1.000-1.035); Urobilinogen Urine UA 0.2 E.U./dL (0.2)
[2021-05-12] MEDS: dexAMETHasone 4 MG TABLET PO ×2 (15:00→21:11)
[2021-05-12 15:02] LABS: RBC Urine 0-1/HPF (0-5/HPF); Squamous Epithelial Cell Urine 10-30 /HPF (0-5/HPF); WBC Urine 1-5/HPF (0-5/HPF)
[2021-05-12 15:03] LABS: Bacteria Urine Few (2-10); Culture Indicated Urine Cult Not Indicated
--- NOTE | 2021-05-12 16:26 | P.PN_ITS ---
Subjective Subjective Date Patient Seen: 05/12/21 Interval history: HOWEVER REPORTED HER EYE BEING ITCHY SHE DENIES ANY EYE PAIN CONTINUE TO HAVE SOME BLURRY VISION DENIES NAUSEA NO VOMITING Exam Vital Signs (past 8 hours): - 05/12/21 12:44 Temperature 98.0 F Pulse Rate 84 Respiratory Rate 18 Blood Pressure 110/50 L Pulse Oximetry 95 Oxygen Delivery Method Room Air Oxygen Flow Rate 0 Const General: cooperative and healthy appearing [facility] Head: normal to inspection Eyes Eyelids: other EOM: EOM intact bilaterally Other: REDNESS APPRECIATED Neck Neck: normal visual inspection and full ROM Chest Chest: normal inspection of the chest and normal palpation of entire chest wall Resp Effort & Inspection: normal respiratory effort Auscultation: clear to auscultation bilaterally Cardio Palpation: normal PMI Rate: regular rate Heart Sounds: S1 normal and S2 normal GI Inspection: normal to inspection Palpation: soft and no hepatosplenomegaly Skin Other: REDNESS APPRECIATED IN THE PERIORBITAL AREA. SOME DRY SKIN APPRECIATED. NO OPEN LESION NO DRAINAGE Neuro General: patient awake, patient oriented x3 and CN's II-XI intact bilaterally Extrem General: normal to inspection and full ROM Psych Appearance: grossly normal Thought Process: normal Objective Labs Result Diagrams: 05/12/21 05:55 05/12/21 05:55 Labs: Laboratory Results - last 24 hr 05/12/21 05/12/21 05/12/21 05:55 05:55 14:30 WBC 6.5 RBC 4.13 Hgb 11.7 L Hct 36.6 MCV 88.8 MCH 28.5 MCHC 32.1 RDW 14.2 Plt Count 291 Neut % (Auto) 64.6 Lymph % (Auto) 21.1 L [place] % (Auto) 6.2 Eos % (Auto) 7.0 H Baso % (Auto) 1.1 Neut # (Auto) 4200 Lymph # (Auto) 1400 [place] # (Auto) 400 Eos # (Auto) 500 H Baso # (Auto) 100 Sodium 139 Potassium 4.2 Chloride 104 Carbon Dioxide 32 BUN 14 Creatinine 0.72 Estimated GFR > 60.0 BUN/Creatinine Ratio 19.4 Glucose 106 Calcium 8.6 Magnesium 2.3 Urine Color Yellow Urine Appearance Clear Urine pH 7.0 Ur Specific [place] 1.015 Urine Protein Trace H Urine Glucose (UA) Negative Urine Ketones Negative Urine Occult Blood Negative Urine Nitrate Negative Urine Bilirubin Negative Urine Urobilinogen 0.2 Ur Leukocyte Esterase Negative Urine RBC 0-1/hpf Urine WBC 1-5/hpf Ur Squamous Epith Cells 10-30 /hpf H D Urine Bacteria Few (2-10) H Ur Culture Indicated? Cult not indicated PFSH Social History household members: family Smoking Status: Former smoker alcohol intake: former Assessment & Plan Assessment & Plan narrative: PROBLEM LIST PERIORBITAL CELLULITIS. 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 Quality VTE Deep Vein Thrombosis/Pulmonary Embolism Present on Admission: No
[2021-05-12] MEDS: LACTOBACILLUS ACIDOPHILUS TABLET 1 EACH PO (16:58)
[2021-05-12] MEDS: ESCITALOPRAM 10 MG TABLET 30 MG PO (21:11)
[2021-05-12] MEDS: diphenhydrAMINE 12.5 MG/5 ML UDC PO (21:11)
[2021-05-12] MEDS: GABAPENTIN 300 MG CAPSULE PO (21:12)
[2021-05-12] MEDS: TRAZODONE 50 MG TABLET PO (21:13)
[2021-05-13] MEDS: ZOLPIDEM 5 MG TABLET 10 MG PO (01:23)
[2021-05-13 04:00] VITALS: RESP 16
[2021-05-13] MEDS: HYDROCODONE/ACET 5/325 TABLET 1.5 TAB PO ×2 (05:02→09:37)
[2021-05-13] MEDS: dexAMETHasone 4 MG TABLET PO ×2 (05:03→14:29)
[2021-05-13 08:30] VITALS: BP 139/81; PULSE 73; RESP 18; TEMP 35.8; O2SAT 97
[2021-05-13] MEDS: ALBUTEROL 2.5 MG/3 ML NEB (ADULT) INH (08:53)
[2021-05-13 08:59] VITALS: PULSE 81; RESP 18; O2SAT 96
[2021-05-13] MEDS: BUDESONIDE 0.5 MG/2 ML NEB INH (09:04)
[2021-05-13] MEDS: DOXYCYCLINE HYCLATE 100 MG TABLET PO (09:22)
[2021-05-13] MEDS: diphenhydrAMINE 12.5 MG/5 ML UDC PO (09:22)
[2021-05-13] MEDS: ROPINIROLE 0.25 MG TABLET PO ×2 (09:23→14:29)
[2021-05-13] MEDS: TOPIRAMATE 25 MG TABLET PO ×2 (09:23→14:29)
[2021-05-13] MEDS: LACTOBACILLUS ACIDOPHILUS TABLET 1 EACH PO ×2 (09:23→13:00)
[2021-05-13] MEDS: ENOXAPARIN 40 MG/0.4 ML SYRINGE SUBCUT (09:23)
[2021-05-13] MEDS: FAMOTIDINE 20 MG TABLET PO (09:24)
[2021-05-13] MEDS: SODIUM CHLORIDE 0.9% FLUSH 10 ML IV (09:24)
[2021-05-13 09:40] VITALS: O2SAT 96
--- NOTE | 2021-05-13 11:23 | P.DS_ITS ---
History of Present Illness History of Present Illness Date Patient Seen: 05/13/21 Chief complaint: CELLULITIS ON THE FACE AND EYES Discharge Providers Provider Date of admission: 05/09/21 16:52 Discharge Date: 05/13/21 Consults: 05/09/21 18:55 Consult to Occupational Therapy Evaluate & Treat Comment: Physician Instructions: Evaluate and treat Consult to Physical Therapy Evaluate & Treat Comment: Physician Instructions: Evaluate and Treat Discharge provider: Freida Weller DO Summary Hospital Course Discharge Diagnosis: VERY PLEASANT 66-YEAR-OLD FEMALE ADMITTED TO THE HOSPITAL WITH SIGNIFICANT REDNESS AROUND THE PERIORBITAL AREA. SHE DENIED ANY INJURY. NO SPECIFIC CONTACTS WITH ANY UNUSUAL SUBSTANCES. SHE HOWEVER REPORTED THAT THAT DAY SHE WORE A MASK ALL DAY AND HE WAS NEW PATIENT WAS STARTED ON ANTIBIOTICS WELL STEROIDS AND BENADRYL. WE SUSPECT THE READ THIS WAS DUE TO SIGNIFICANT ALLERGY TO AN UNKNOWN SUBSTANCE. SHE WAS ADVISED TO CHANGE THE BRAIN OF MASK SHE HAS BEEN USING. SHE WILL BE DISCHARGED ON A SHORT COURSE OF STEROIDS. TAPERED DOES HAVE BEEN ORDERED. ANTIBIOTICS WELL DENSITIES BEEN NOTED WELL. AT THIS TIME SHE APPEARED TO BE CLINICALLY IMPROVED AND STABLE. ADDITIONAL MANAGEMENT WILL BE DEFERRED TO OUTPATIENT PROVIDERS. Status at Discharge Cognitive/behavioral status at discharge: oriented Functional status at discharge: independent ambulation Overall status at discharge: patient is back to baseline Time Spent with Patient Time spent: Greater than 30 minutes Exam Vital Signs (past 8 hours): - 05/13/21 04:00 05/13/21 08:59 05/13/21 09:40 Pulse Rate 81 Respiratory Rate 16 18 Pulse Oximetry 96 96 Oxygen Delivery Method Room Air Oxygen Flow Rate 0 Narrative Exam Narrative: NO ACUTE DISTRESS. PATIENT IS ALERT ORIENTED X3. VITAL SIGNS STABLE HEAD ATRAUMATIC NORMOCEPHALIC NECK : SUPPLE WITHOUT ADENOPATHY NO CAROTID BRUITS EYE: EOMI, PERRLA, NORMAL CONJUNCTIVA; NO JAUNDICE . PERIORBITAL REDNESS APPRECIATED. NO DRAINAGE. CHEST: REGULAR RATE. NO RUBS. PMI IS NON DISPLACED. NO MURMURS; NORMAL S1- S2 PULMONARY: DECREASED BS OVER THE BASES. MILD BIBASILAR CRACKLES NOTED; NO INCREASED DULLNESS TO PERCUSSION ABDOMEN: SOFT. NONTENDER. NONDISTENDED. BOWEL SOUNDS ARE PRESENT IN ALL 4 QUADRANTS. NO MASS. EXTREMITIES: NO EDEMA.. NO CYANOSIS CLUBBING NOTED. NEURO: CRANIAL NERVES 2-12 GROSSLY INTACT. NO FOCAL NEUROLOGICAL DEFICIT NOTED. MSK: NORMAL RANGE OF MOTION FOR AGE. NO JOINT EFFUSION. SKIN: NORMAL FOR ETHNICITY; NO ECCHYMOSIS. NO LESION. GOOD TURGOR.; NO RASHES : NORMAL EXTERNAL GENITALIA. PSYCH : APPROPRIATE MOOD AND AFFECT. ALERT AWAKE ORIENTED X3 Objective Labs Result Diagrams: 05/12/21 05:55 05/12/21 05:55 Labs: Laboratory Results - last 24 hr 05/12/21 14:30 Urine Color Yellow Urine Appearance Clear Urine pH 7.0 Ur Specific [place] 1.015 Urine Protein Trace H Urine Glucose (UA) Negative Urine Ketones Negative Urine Occult Blood Negative Urine Nitrate Negative Urine Bilirubin Negative Urine Urobilinogen 0.2 Ur Leukocyte Esterase Negative Urine RBC 0-1/hpf Urine WBC 1-5/hpf Ur Squamous Epith Cells 10-30 /hpf H D Urine Bacteria Few (2-10) H Ur Culture Indicated? Cult not indicated PFSH Social History household members: family Smoking Status: Former smoker alcohol intake: former Discharge Plan Discharge Plan Patient Disposition: Home Discharge orders & Medications Prescriptions: New Bacid 1 billion cell- 250 mg Tablet 1 ea PO TIDWM Qty: 60 0RF famotidine [Pepcid AC] 20 mg Tablet 20 mg PO BID Qty: 90 0RF doxycycline hyclate 100 mg Tablet 100 mg PO BID Qty: 7 0RF prednisone 5 mg tablet 5 mg PO DIRECTED Qty: 30 0RF Rx Instructions: 30MG PO X 3 DAYS 20MG PO X 3 DAYS 10MG PO X 3 DAYS 5 MG PO X 3 DAYS Continued trazodone 50 mg Tablet 50 mg PO BEDTIME 0RF hydrocodone-acetaminophen 5-325 mg Tablet 1.5 tab PO QID 0RF ropinirole [Requip] 0.25 mg Tablet 0.25 mg PO TID 0RF escitalopram oxalate [Lexapro] 10 mg Tablet 30 mg PO BEDTIME 0RF Breo Ellipta 1 puff inhalation DAILY 0RF gabapentin 300 mg capsule 300 mg PO BEDTIME 0RF Rx Instructions: 300 mg orally zolpidem 10 mg tablet 10 mg PO BEDTIME 0RF furosemide [Lasix] 40 mg tablet 40 mg PO BEDTIME 0RF topiramate 25 mg Tablet 25 mg PO TID 0RF Diet/Activity/Treatments Diet: Carb-consistent/Diabetic and Low-fat Activity: COBY Skin/Wound/Dressing Care Report to your healthcare provider any signs of infection, such as:: chills, fever, night sweats, increased pain, unusual drainage and unusual redness Quality VTE Deep Vein Thrombosis/Pulmonary Embolism Present on Admission: No
--- NOTE | 2021-05-13 14:12 | CM.DPC ---
DCP Discharge Home Per MD, pt medically stable to d/c home on oral abx and no identified barriers to d/c and does not feel pt has any d/c needs. Per PT, recommending home with assist and pt has her teen dtr available to assist at d/c and local supportive family to provide transport home. Due to need for bed availability and family cannot provide transport home until after 1700, pt requests assist with getting Medicaid transport home to [place]. NICCI called Medicaid transport and confirmed that pt has transportation benefits. NICCI completed the Medicaid transport form and faxed in for taxi transport under Medicaid daryl and now awaiting call from medicaid with transportation company and time. NICCI updated RN who will kindly update pt. Plan: NICCI to follow for return call from Medicaid transport to confirm time of taxi transport home. KARMA Ruiz
--- NOTE | 2021-05-13 15:36 | PC.NURSE ---
Discharge education provided. Pt verbalized understanding of all instructions. Scripts given. Pt stated she will have someone take her to the pharmacy to fill scripts later this evening. Pt left via w/c with all personal belonging to taxi vehicle. Pt left in stable condition.
== END 2021-05-13 15:30 | disposition home or self-care (01) | DRG 603 ==
LOC: ED 13:58 → AC 16:53
PROVIDERS: Hospitalist; Admitting Provider Student in an Organized Health Care Education/Training Program; Emergency Provider Emergency Medicine; Referring Provider Emergency Medicine; Visit Provider Student in an Organized Health Care Education/Training Program
DX: L03.213 Periorbital cellulitis (principal); Z68.42 Body mass index [BMI] 45.0-49.9, adult; E66.9 Obesity, unspecified; F32.A Depression, unspecified; G89.29 Other chronic pain; M54.9 Dorsalgia, unspecified; Z87.891 Personal history of nicotine dependence; Z20.822 Contact with and (suspected) exposure to COVID-19
CPT/HCPCS: 36415; 70487; 80048; 80053; 81001; 82550; 83605; 83735; 84145; 84484; 85025; 87040; 87086; 87150; 87186; 87205; 87635; 93005; 94640; 94760; 96365; 96366; 96375; 97161; 99284; C9803; A9270; J0696; J0878; J1100; J1642; J1650; J2020; J2270; J7613; Q9967

== ENCOUNTER 2021-09-12 14:09 | Emergency (ER) | payer OTHER, MEDICAID, SELFPAY ==
[2021-05-09 18:10] VITALS: BMI 49.0
[2021-09-12 14:15] VITALS: BP 155/72; PULSE 87; RESP 16; TEMP 36.8; O2SAT 94; BMI 51.7
--- NOTE | 2021-09-12 14:21 | DI.RAD.S_ITS ---
PROCEDURE: XR ANKLE RT MIN 3V INDICATIONS: pain swelling TECHNIQUE: Three views of the ankle were acquired. COMPARISON: [facility], CR, XR FOOT RT MIN 3V, 09/12/2021, 14:14. FINDINGS: Bones: Suspected cuboid fracture on concurrent foot radiographs is not well seen on this exam. Ankle mortise is normally aligned. No suspicious bony lesions. Soft tissues: Soft tissue edema is seen surrounding the ankle. IMPRESSION: No acute osseous abnormality visualized. Suspected cuboid fracture seen on foot radiographs performed at the same time is not well seen on this exam. Dictated by: Hugh Luevano M.D. on 09/12/2021 at 13:56 Approved by: Hugh Luevano M.D. on 09/12/2021 at 13:58
--- NOTE | 2021-09-12 14:21 | DI.RAD.S_ITS ---
PROCEDURE: XR FOOT RT MIN 3V INDICATIONS: pain swelling TECHNIQUE: 3 views of the foot were acquired. COMPARISON: None. FINDINGS: Bones: There is a suspected minimally displaced fracture at the inferolateral cuboid seen on lateral view only. No additional fracture is seen. No suspicious bony lesions. Plantar and posterior calcaneal enthesophytes are present. Soft tissues: Diffuse soft tissue edema is seen in the ankle and foot. IMPRESSION: Suspected small minimally displaced fracture at the inferolateral cuboid. Dictated by: Hugh Luevano M.D. on 09/12/2021 at 13:55 Approved by: Hugh Luevano M.D. on 09/12/2021 at 13:56
--- NOTE | 2021-09-12 15:58 | ED_ITS ---
HPI - Extremity Injury (Lower) <Tosha Lang, [facility] - Last Filed: 09/12/21 16:47> General Chief Complaint: Extremity Injury, Lower Stated Complaint: Leg pain, Bruising, Swelling Time Seen by Provider: 09/12/21 15:34 Source: patient Mode of arrival: Ambulatory History of Present Illness HPI Narrative: 66-year-old female presents to the emergency department complaining of right ankle and foot pain which has been present for 3 weeks that she woke up with, she denies any known injury, but she states last night it started hurting much worse than usual. She denies any known injury however she has ecchymosis and swelling over the lateral aspect of her right ankle. Patient states that she has fibromyalgia, she states this could be related, she is not taking any medications prior to arrival today. Patient states that she is on a pain contract with [facility] pain clinic, she takes hydrocodone daily but this has not helped her pain, she also takes gabapentin but she has not had this today. She states that she has some numbness and tingling in her right foot but denies any cold sensation. Related Data Home Medications Medication Instructions Recorded Confirmed escitalopram oxalate 10 mg tablet 30 mg PO BEDTIME 12/27/20 05/09/21 (Lexapro) hydrocodone 5 mg-acetaminophen 325 1.5 tab PO QID 12/27/20 05/09/21 mg tablet ropinirole 0.25 mg tablet (Requip) 0.25 mg PO TID 12/27/20 05/09/21 trazodone 50 mg tablet 50 mg PO BEDTIME 12/27/20 05/09/21 Breo Ellipta 1 puff INHALATION DAILY 01/07/21 05/09/21 furosemide 40 mg tablet (Lasix) 40 mg PO BEDTIME 05/09/21 05/09/21 gabapentin 300 mg capsule 300 mg PO BEDTIME 05/09/21 05/09/21 zolpidem 10 mg tablet 10 mg PO BEDTIME 05/09/21 05/09/21 topiramate 25 mg tablet 25 mg PO TID 05/10/21 05/10/21 Previous Rx's Medication Instructions Recorded L.acidophilus-L.bulgar-B.bifid-S.thermoph 1 ea PO TIDWM #60 tab 05/13/21 1 billion cell-250 mg tablet (Bacid) doxycycline hyclate 100 mg tablet 100 mg PO BID #7 tab 05/13/21 famotidine 20 mg tablet (Pepcid AC) 20 mg PO BID #90 tab 05/13/21 prednisone 5 mg tablet 5 mg PO DIRECTED #30 tab 05/13/21 diclofenac sodium 1 % topical gel 2 g TOPICAL QID PRN #100 g 09/12/21 (Voltaren Arthritis Pain) meloxicam 7.5 mg tablet 7.5 mg PO DAILY PRN #14 tab 09/12/21 tramadol 50 mg tablet 50 mg PO BID PRN #10 tab 09/12/21 Allergies Allergy/AdvReac Type Severity Reaction Status Date / Time Penicillins Allergy Intermediate Hives Verified 05/10/21 14:24 aspirin Allergy Verified 05/09/21 12:50 phenobarbital Allergy Verified 05/09/21 12:50 povidone-iodine Allergy Verified 05/09/21 12:50 [From Betadine] soap [From Betadine] Allergy Verified 05/09/21 12:50 Tetanus Vaccines and Toxoid Allergy Verified 05/09/21 12:50 pregabalin [From Lyrica] AdvReac Severe suicidal Verified 05/10/21 14:24 ideations Review of Systems <CAMILLE Rausch - Last Filed: 09/12/21 16:47> Review of Systems Narrative: General: denies fever, chills, malaise, sweats, fatigue Head/Neck: denies headache, neck pain, dizziness Eyes: denies visual changes, eye pain Cardio: denies chest pain, palpitations, edema Respiratory: denies dyspnea, cough, orthopnea GI: denies abdominal pain, nausea, vomiting, or diarrhea : denies dysuria, hematuria, urinary retention, frequency or incontinence MSK: Endorses right ankle pain, with mild swelling, denies any muscle weakness, states that she cannot ambulate on her right foot because the bottom of her foot hurts to ambulate on. Skin: denies rash, itching, skin lesions or other Neuro: denies numbness, tingling Patient History <CAMILLE Rausch - Last Filed: 09/12/21 16:47> Social History household members: family Smoking Status: Former smoker alcohol intake: former Smoking Status: Former smoker alcohol intake frequency: holidays/special occasions only Substance Use Type: does not use Exam <CAMILLE Rausch - Last Filed: 09/12/21 16:47> Narrative Exam Narrative: Independently reviewed vitals signs and nursing notes. General: cooperative, comfortable, in no acute distress, well developed and well groomed Head: atraumatic, symmetrical facial expressions Neck: supple, atraumatic, without lymphadenopathy. Eyes: pupils equal round and reactive, EOMI, conjunctiva normal Nose: nares patent, no rhinorrhea Mouth/Throat: uvula midline, moist mucus membranes Cardiovascular: regular rate and rhythm, no peripheral edema, warm extremities Respiratory: normal effort, able to speak in complete sentences, no audible wheezing, stridor, or rales. No retractions or tachypnea. GI: abdomen soft, nontender to palpation, nondistended, no masses, no exquisite tenderness with exam, without guarding or rebound. MSK: moves all extremities, neurovascularly intact, no weakness, right foot with ecchymosis and edema over lateral malleolus, no tenderness over lateral or medial malleolus, no tenderness over 5th metatarsal or proximal 1st my metatarsal. Patient has tenderness over ATFL and calcaneofibular ligament. Flexion extension intact, no ecchymosis on dorsum or plantar aspect of foot. PT and DP pulses are 2+, cap refill less than 2 seconds, color is slightly purplish although warm to touch, no diffuse edema, edema only over lateral malleolus and dependent to right foot. Skin: brisk capillary refill, no rash, no erythema Neuro: normal speech and cognition, A&O x3, normal tone Psych: mental status is grossly normal, congruent mood, normal affect, pleasant and cooperative Initial Vital Signs Initial Vital Signs: Vital Signs Temperature 98.2 F 09/12/21 14:15 Pulse Rate 87 09/12/21 14:15 Respiratory Rate 16 09/12/21 14:15 Blood Pressure 155/72 H 09/12/21 14:15 Pulse Oximetry 94 09/12/21 14:15 Procedures <CAMILLE Rausch - Last Filed: 09/12/21 16:47> Orthopedic Splinting/Casting Injury #1: Lower Extremity Injury Location: ankle Lower Extremity Immobilizer: boot orthosis Other Orthopedic Equipment: walker Post splinting neuro exam: intact Post splinting vascular exam: no change Placed by: Nursing Course <CAMILLE Rausch - Last Filed: 09/12/21 16:47> Orders Ordered: ED Orders 09/12/21 14:21 XR ankle RT min 3V Stat XR foot RT min 3V Stat 09/12/21 16:32 Consult to Orthopedic Surgery Stat Discontinued Medications Hydrocodone Bitart/Acetaminophen (Hydrocodone/Acet 5/325 Tablet) 2 tab PO NOW ONE Stop: 09/12/21 15:57 Last Admin: 09/12/21 16:19 Dose: 2 tab Documented by: LINA Gabapentin (Gabapentin 300 Mg Capsule) 300 mg PO DAILY MARGRET Ketorolac Tromethamine (Ketorolac 30 Mg/Ml Vial) 15 mg IM NOW ONE Stop: 09/12/21 15:57 Last Admin: 09/12/21 16:19 Dose: 15 mg Documented by: LINA Tramadol HCl (Tramadol 50 Mg Tablet) 50 mg PO NOW ONE Stop: 09/12/21 15:57 Last Admin: 09/12/21 16:20 Dose: 50 mg Documented by: LINA Vital Signs Vital signs: Vital Signs - 8 hr 09/12/21 14:15 09/12/21 16:45 Temperature 98.2 F Pulse Rate 87 80 Respiratory Rate 16 18 Blood Pressure 155/72 H 140/65 Pulse Oximetry 94 98 MDM - Extremity Injury (Lower) <CAMILLE Rausch - Last Filed: 09/12/21 16:47> Imaging Data Extremity x-ray #1: Radiologist's Impression: PROCEDURE:? XR FOOT RT MIN 3V ? INDICATIONS:? pain swelling ? TECHNIQUE:? 3 views of the foot were acquired.? ? COMPARISON:? None. ? FINDINGS:? ? Bones:? There is a suspected minimally displaced fracture at the inferolateral cuboid seen on lateral view only.? No additional fracture is seen.? No suspicious bony lesions.? Plantar and posterior calcaneal enthesophytes are present. ? Soft tissues:? Diffuse soft tissue edema is seen in the ankle and foot. ? IMPRESSION:? Suspected small minimally displaced fracture at the inferolateral cuboid. ? ? Dictated by: Hugh Luevano M.D. on 09/12/2021 at 13:55 ? ? Approved by: Hugh Luevano M.D. on 09/12/2021 at 13:56 ? Extremity x-ray #2: Radiologist's Impression: PROCEDURE:? XR ANKLE RT MIN 3V ? INDICATIONS:? pain swelling ? TECHNIQUE:? Three views of the ankle were acquired.? ? COMPARISON:? [facility], CR, XR FOOT RT MIN 3V, 09/12/2021, 14:14. ? FINDINGS:? ? Bones:? Suspected cuboid fracture on concurrent foot radiographs is not well seen on this exam.? Ankle mortise is normally aligned.? No suspicious bony lesions.? ? Soft tissues:? Soft tissue edema is seen surrounding the ankle. ? ? IMPRESSION:? No acute osseous abnormality visualized.? Suspected cuboid fracture seen on foot radiographs performed at the same time is not well seen on this exam. ? ? ? Dictated by: Hugh Luevano M.D. on 09/12/2021 at 13:56 ? ? Approved by: Hugh Luevano M.D. on 09/12/2021 at 13:58 ? MDM Narrative Medical decision making narrative: 66-year-old female presents to the emergency department complaining of right foot pain which started worse last night but has been bothersome for 3 weeks. Patient has had this evaluated by her primary care provider and is pending MR imaging order from her PCP. She states that she was unable to walk on it at home but has been getting around okay. Patient states that she is on a pain contract with [facility] pain clinic, she takes hydrocodone daily but this has not helped her pain. X-ray of her right foot shows a suspected small minimally displaced fracture at the inferolateral cuboid bone. Also shows diffuse soft tissue edema in the ankle in the foot. Patient was referred to [facility] for follow-up, encouraged her to follow-up with her primary care provider for physical therapy and advanced imaging as this was already ordered supposedly but patient has not had a MRI of her foot yet. Patient was given tramadol, hydrocodone in the emergency department, gabapentin as she states she has not taken any for medications today and Toradol. She states that this was helpful for her pain. She understands to follow-up with orthopedics and her primary care provider, she was given strict return precautions Emergency Department, she is able to ambulate in a walking boot with a walker and not bear much weight on her right foot and tolerate this well. Patient is appropriate and amenable to discharge home. Vital signs are stable on repeat examination is unremarkable. Patient has been informed of results. Patient has been given strict return to ER precautions for any new or worsening symptoms. Patient understands to follow up closely with outpatient providers as instructed. Patient understands plan and agrees to discharge home. All questions and concerns answered at this time. Discharge Plan Departure Patient Disposition: Home Clinical Impression: Acute foot pain Qualifiers: Laterality: right Qualified Code(s): M79.671 - Pain in right foot Closed fracture cuboid Qualifiers: Encounter type: initial encounter Fracture alignment: displaced Laterality: right Qualified Code(s): S92.211A - Displaced fracture of cuboid bone of right f oot, initial encounter for closed fracture Instructions: DI for Foot Fracture, DI for Foot Pain Activity Restrictions/Additional Instructions: *You have been diagnosed with right foot pain, right ankle pain, with a small fracture of your cuboid bone in your right foot. Please wear this walking boot at all times while your out of bed, you may take off the outer shell while your in bed and sleep in the soft padding. Please follow-up with orthopedics within 1 week. Please call and make an appointment. I have put a referral in for you. Please contact your primary care provider and discuss physical therapy and/or advanced imaging. Please go back to the Pain Clinic and talk with them if your pain needs are not being met. Thank you for trusting us with your care, I hope you feel better soon. Please keep this elevated, ice it is much as he can, and avoid walking on it. *What to do: *Please continue to take your regular medications as directed. [ x] New medication prescriptions sent to your pharmacy: [ [facility]] [ ] New medication written as a paper prescription [ ] No new medications given *Please follow up with your primary care provider in 2-3 days, call for an appointment. Let them know you were seen in the Emergency Department and that we asked that you be seen for follow-up. We will electronically transmit a record of today's note if your PCP is in our system *If you do not have a primary care provider please contact [phone] to establish care with one of [facility] primary care providers. *Return to Emergency Department if you should have any new, worsening or concerning symptoms, such as [fever greater than 101F, chills, worsening pain, persistent vomiting or other bothersome symptoms] Prescriptions: New diclofenac sodium [Voltaren Arthritis Pain] 1 % gel 2 g topical QID PRN (Reason: pain, swelling) Qty: 100 0RF Rx Instructions: apply to single elbow, wrist or hand; for hand includes palm/fingers/back of hand tramadol 50 mg tablet 50 mg PO BID PRN (Reason: pain) Qty: 10 0RF meloxicam 7.5 mg tablet 7.5 mg PO DAILY PRN (Reason: pain) Qty: 14 0RF Rx Instructions: Please take with food and water No Action trazodone 50 mg Tablet 50 mg PO BEDTIME 0RF hydrocodone-acetaminophen 5-325 mg Tablet 1.5 tab PO QID 0RF ropinirole [Requip] 0.25 mg Tablet 0.25 mg PO TID 0RF escitalopram oxalate [Lexapro] 10 mg Tablet 30 mg PO BEDTIME 0RF Breo Ellipta 1 puff inhalation DAILY 0RF gabapentin 300 mg capsule 300 mg PO BEDTIME 0RF Rx Instructions: 300 mg orally zolpidem 10 mg tablet 10 mg PO BEDTIME 0RF furosemide [Lasix] 40 mg tablet 40 mg PO BEDTIME 0RF topiramate 25 mg Tablet 25 mg PO TID 0RF Bacid 1 billion cell- 250 mg Tablet 1 ea PO TIDWM Qty: 60 0RF famotidine [Pepcid AC] 20 mg Tablet 20 mg PO BID Qty: 90 0RF doxycycline hyclate 100 mg Tablet 100 mg PO BID Qty: 7 0RF prednisone 5 mg tablet 5 mg PO DIRECTED Qty: 30 0RF Rx Instructions: 30MG PO X 3 DAYS 20MG PO X 3 DAYS 10MG PO X 3 DAYS 5 MG PO X 3 DAYS Referrals: [facility] [Provider Group] [facility] [Provider Group]
[2021-09-12] MEDS: KETOROLAC 30 MG/ML VIAL 15 MG IM (16:19)
[2021-09-12] MEDS: HYDROCODONE/ACET 5/325 TABLET 2 TAB PO (16:19)
[2021-09-12] MEDS: TRAMADOL 50 MG TABLET PO (16:20)
--- NOTE | 2021-09-12 16:30 | PC.NURSE ---
pt has home gabapentin 300 mg po from home supply
[2021-09-12 16:45] VITALS: BP 140/65; PULSE 80; RESP 18; O2SAT 98
== END 2021-09-12 17:10 | disposition home or self-care (01) ==
PROVIDERS: Emergency Provider Nurse Practitioner Critical Care Medicine
DX: S92.211A Displaced fracture of cuboid bone of right foot, initial encounter for closed fracture (principal); X58.XXXA Exposure to other specified factors, initial encounter
CPT/HCPCS: 29580; 73610; 73630; 96372; 99283; J1885

== ENCOUNTER 2021-10-29 18:55 | Observation (INO) | payer MEDICARE, MEDICAID, SELFPAY ==
[2021-05-09 18:10] VITALS: BMI 49.0
[2021-10-29 18:57] VITALS: BP 130/88; PULSE 95; RESP 17; TEMP 37.5; O2SAT 96; BMI 50.1
[2021-10-29 19:48] LABS: Add Manual Diff / Slide Review NO; Basophils Absolute Auto 100 /uL (0-100); Basophils Percent Auto 0.3 % (0-2); Eosinophils Absolute Auto 200 /uL (0-450); Eosinophils Percent Auto 0.9 % (2-4); Hematocrit 37.1 % (36-46); Lymphocytes Absolute Auto 1000 /uL (1100-4500); Lymphocytes Percent Auto 5.7 % (25-40); Mean Corpuscular HGB Conc 32.3 % (30-36); Mean Corpuscular Hemoglobin 28.1 PG (26-34); Monocytes Absolute Auto 500 /uL (0-900); Monocytes Percent Auto 3.1 % (3-14); Neutrophils Absolute Auto 15800 /uL (1500-7000); Platelet Count 364 X10^3/uL (150-400); Red Blood Cell Count 4.26 X10^6/uL (4.0-5.2); Red Cell Distribution Width 14.4 % (11.6-14.8); White Blood Cell Count 17.6 X10^3/uL (4.5-11.0)
[2021-10-29 20:20] LABS: Alanine Aminotransferase 9 IU/L (<35); Albumin 3.3 g/dL (3.5-5.0); Alkaline Phosphatase 103 U/L (38-126); Aspartate Aminotransferase 15 IU/L (14-36); BUN Creatinine Ratio 8.3 (6-22); Bilirubin Total 0.6 mg/dL (0.2-1.3); Blood Urea Nitrogen 6 mg/dL (7-17); Calcium 8.1 mg/dL (8.4-10.2); Carbon Dioxide 33 mmol/L (22-32); Chloride 96 mmol/L (98-107); Estimated Glomerular Filt Rate > 60 mL/min (>60); Globulin 3.4 g/dL (1.7-4.1); Glucose 116 mg/dL (80-110); HEMOLYSIS < 15 (0-50); Lipase 28 U/L (23-300); Potassium 3.5 mmol/L (3.4-5.1); Sodium 133 mmol/L (137-145); Total Protein 6.7 g/dL (6.3-8.2)
[2021-10-29 20:21] LABS: Lactate (Lactic Acid) 1.1 mmol/L (0.7-2.1)
--- NOTE | 2021-10-29 21:15 | PC.NURSE ---
pt ambulatory back from bathroom without assistance
--- NOTE | 2021-10-29 22:28 | ED_ITS ---
HPI - Skin/Abscess/Foreign Bdy General Chief complaint: Skin/Abscess/Foreign Body Stated complaint: Cellulitis on legs Time Seen by Provider: 10/29/21 20:36 Source: EMS Mode of arrival: EMS Limitations: no limitations History of Present Illness HPI narrative: This is a 66-year-old female with known history of cellulitis in the past patient states she has had cellulitis in this area before she states typically she has had to be treated with IV antibiotics. It has had a history of C diff as well and states she is usually put on something to help prevent this. She has a history of fibromyalgia, depression and chronic pain. She is not a diabetic she does not take anything for hypertension, dyslipidemia. Patient states she has had fevers of 101-102 at home. She has had nausea but no vomiting. She denies chest pain or shortness of breath no pain but she has pain extending from the right buttock crossed her flank and into her abdomen she has redness she states spreading from that area all the way onto the front of her abdomen. She states it has been about 7-8 days of symptoms. Patient has had some diarrhea. She denies any urinary symptoms. Related Data Home Medications Medication Instructions Recorded Confirmed escitalopram oxalate 10 mg tablet 30 mg PO BEDTIME 12/27/20 10/30/21 (Lexapro) hydrocodone 5 mg-acetaminophen 325 1.5 tab PO QID 12/27/20 10/30/21 mg tablet ropinirole 0.25 mg tablet (Requip) 0.25 mg PO TID 12/27/20 10/30/21 trazodone 50 mg tablet 50 mg PO BEDTIME 12/27/20 10/30/21 Breo Ellipta 1 puff INHALATION DAILY PRN 01/07/21 10/30/21 gabapentin 300 mg capsule 300 mg PO BID-TID 05/09/21 10/30/21 zolpidem 10 mg tablet 10 mg PO BEDTIME 05/09/21 10/30/21 topiramate 25 mg tablet 25 mg PO TID 05/10/21 05/10/21 Previous Rx's Medication Instructions Recorded L.acidophilus-L.bulgar-B.bifid-S.thermoph 1 ea PO TIDWM #60 tab 05/13/21 1 billion cell-250 mg tablet (Bacid) prednisone 5 mg tablet 5 mg PO DIRECTED #30 tab 05/13/21 Allergies Allergy/AdvReac Type Severity Reaction Status Date / Time Penicillins Allergy Intermediate Hives Verified 10/29/21 19:10 aspirin Allergy Verified 10/29/21 19:10 phenobarbital Allergy Verified 10/29/21 19:10 povidone-iodine Allergy Verified 10/29/21 19:10 [From Betadine] soap [From Betadine] Allergy Verified 10/29/21 19:10 Tetanus Vaccines and Toxoid Allergy Verified 10/29/21 19:10 pregabalin [From Lyrica] AdvReac Severe suicidal Verified 10/29/21 19:10 ideations Review of Systems Review of Systems ROS Unobtainable: All systems reviewed & are unremarkable except as noted in HPI and below Patient History Social History household members: family Smoking Status: Former smoker alcohol intake: former Smoking Status: Former smoker alcohol intake frequency: holidays/special occasions only Substance Use Type: does not use Exam Narrative Exam Narrative: GENERAL: Alert and oriented x three, obese female in mild distress. HEENT: Head normocephalic, atraumatic, EOMI, pupils reactive, face symmetric, moist mucous membranes NECK: Supple, full range of motion CARDIOVASCULAR: Regular rate and rhythm without murmurs, rubs or gallops. RESPIRATORY: Breath sounds equal bilaterally, no wheezes rales or rhonchi. ABDOMEN: Soft, nontender. Normoactive bowel sounds all 4 quadrants. No guarding or rebound, rigidity, no mass : No CVA tenderness EXTREMITIES: Normal range of motion, no clubbing or edema. Neurovascularly intact NEUROLOGICAL: Cranial nerves II through XII grossly intact. Moving all extremities SKIN: Warm, dry, no petechiae, patient has erythema extending from the right gluteal crease across her buttock across her flank and onto her anterior abdomen almost to the umbilicus and its widest dimension is probably 15-16 cm in width. There is no fluctuance or clear areas of induration. She has some erythema tracking to the left buttock but does not go more than 3 or 4 cm from the crease on the left buttock. The area is warm to touch. Initial Vital Signs Initial Vital Signs: Vital Signs Temperature 99.5 F 10/29/21 18:57 Pulse Rate 95 H 10/29/21 18:57 Respiratory Rate 17 10/29/21 18:57 Blood Pressure 130/88 10/29/21 18:57 Pulse Oximetry 96 10/29/21 18:57 Course Orders Ordered: ED Orders 10/29/21 23:10 COVID19 -Nasal RAPID/Pre-Proc Stat 10/30/21 04:25 Basic Metabolic Panel Routine Complete Blood Count AUTO DIFF Routine Acetaminophen (Acetaminophen 325 Mg Tablet) 650 mg PO Q6HR PRN PRN Reason: pain, fever Enoxaparin Sodium (Enoxaparin 40 Mg/0.4 Ml Syringe) 40 mg SUBCUT DAILY [facility] Vancomycin HCl/Dextrose (Vancomycin) 2,000 mg in 400 mls @ 200 mls/hr IV Q12H [facility] Lactobacillus Acidophilus (Lactobacillus Acidophilus Tablet) 1 each PO BIDWM [facility] Naloxone HCl (Naloxone 0.4 Mg/Ml Vial) 0.2 mg IV Q2MIN PRN PRN Reason: Opiate Reversal Ondansetron HCl (Ondansetron 4 Mg/2 Ml Inj) 4 mg IV Q8HR PRN PRN Reason: Nausea And Vomiting Oxycodone HCl (Oxycodone Ir 10 Mg Tablet) 5 mg PO Q4HR PRN PRN Reason: Pain, Severe (7-10) Last Admin: 10/30/21 04:18 Dose: 5 mg Documented by: NORBERTO Vancomycin HCl (Vancomycin Per Pharmacy) 1 request MISC NOW ONE Stop: 10/30/21 00:55 Discontinued Medications Vancomycin HCl/Dextrose (Vancomycin) 2,000 mg in 400 mls @ 200 mls/hr IV NOW ONE Stop: 10/30/21 00:37 Last Admin: 10/29/21 22:50 Dose: 200 mls/hr Documented by: ALEXSANDRA Morphine Sulfate (Morphine 4 Mg/Ml Inj) 4 mg IV NOW ONE Stop: 10/29/21 22:39 Last Admin: 10/29/21 22:49 Dose: 4 mg Documented by: ALEXSANDRA Ondansetron HCl (Ondansetron 4 Mg/2 Ml Inj) 4 mg IV Q6HR PRN PRN Reason: Nausea And Vomiting Last Admin: 10/29/21 22:49 Dose: 4 mg Documented by: ALXESANDRA Consultations Consultation #1: Dr. Bridges, hospitalist accepts for observation for cellulitis. Patient does have elevated white count, negative lactate procalcitonin. Heart rate was in 90s but patient does not appear to be septic. She does appear to have a very large area of cellulitis does require hospitalization as unlikely to be treated with oral antibiotics. Vital Signs Vital signs: Vital Signs - 8 hr 10/29/21 23:00 Temperature 99.3 F Pulse Rate 83 Respiratory Rate 20 Blood Pressure 110/54 L Pulse Oximetry 90 L MDM - Skin/Abscess/Foreign Bdy Lab Data Result diagrams: 10/30/21 04:25 10/30/21 04:25 Labs: Lab Results 10/29/21 10/29/21 10/29/21 Range/Units 19:40 19:40 19:40 WBC 17.6 H (4.5-11.0) X10^3/uL RBC 4.26 (4.0-5.2) X10^6/uL Hgb 12.0 (12.0-16.0) g/dL Hct 37.1 (36-46) % MCV 87.0 (80-100) fL MCH 28.1 (26-34) PG MCHC 32.3 (30-36) % RDW 14.4 (11.6-14.8) % Plt Count 364 (150-400) X10^3/uL Neut % (Auto) 90.0 H (50-75) % Lymph % (Auto) 5.7 L (25-40) % [place] % (Auto) 3.1 (3-14) % Eos % (Auto) 0.9 L (2-4) % Baso % (Auto) 0.3 (0-2) % Neut # (Auto) 40376 H (8197-6343) /uL Lymph # (Auto) 1000 L (5589-8279) /uL [place] # (Auto) 500 (0-900) /uL Eos # (Auto) 200 (0-450) /uL Baso # (Auto) 100 (0-100) /uL Sodium 133 L (137-145) mmol/L Potassium 3.5 (3.4-5.1) mmol/L Chloride 96 L (98-107) mmol/L Carbon Dioxide 33 H (22-32) mmol/L BUN 6 L (7-17) mg/dL Creatinine 0.72 (0.52-1.04) mg/dL Estimated GFR > 60 (>60) mL/min BUN/Creatinine Ratio 8.3 (6-22) Glucose 116 H (80-110) mg/dL Lactate 1.1 (0.7-2.1) mmol/L Calcium 8.1 L (8.4-10.2) mg/dL Total Bilirubin 0.6 (0.2-1.3) mg/dL AST 15 (14-36) IU/L ALT 9 (<35) IU/L Alkaline Phosphatase 103 (38-126) U/L Total Protein 6.7 (6.3-8.2) g/dL Albumin 3.3 L (3.5-5.0) g/dL Globulin 3.4 (1.7-4.1) g/dL Albumin/Globulin Ratio 1.0 (1.0-2.8) Lipase 28 (23-300) U/L Procalcitonin 0.20 (<0.5) ng/mL SARS-CoV-2 (PCR) (Negative) 10/29/21 Range/Units 23:10 WBC (4.5-11.0) X10^3/uL RBC (4.0-5.2) X10^6/uL Hgb (12.0-16.0) g/dL Hct (36-46) % MCV (80-100) fL MCH (26-34) PG MCHC (30-36) % RDW (11.6-14.8) % Plt Count (150-400) X10^3/uL Neut % (Auto) (50-75) % Lymph % (Auto) (25-40) % [place] % (Auto) (3-14) % Eos % (Auto) (2-4) % Baso % (Auto) (0-2) % Neut # (Auto) (2230-7366) /uL Lymph # (Auto) (4026-3515) /uL [place] # (Auto) (0-900) /uL Eos # (Auto) (0-450) /uL Baso # (Auto) (0-100) /uL Sodium (137-145) mmol/L Potassium (3.4-5.1) mmol/L Chloride (98-107) mmol/L Carbon Dioxide (22-32) mmol/L BUN (7-17) mg/dL Creatinine (0.52-1.04) mg/dL Estimated GFR (>60) mL/min BUN/Creatinine Ratio (6-22) Glucose (80-110) mg/dL Lactate (0.7-2.1) mmol/L Calcium (8.4-10.2) mg/dL Total Bilirubin (0.2-1.3) mg/dL AST (14-36) IU/L ALT (<35) IU/L Alkaline Phosphatase (38-126) U/L Total Protein (6.3-8.2) g/dL Albumin (3.5-5.0) g/dL Globulin (1.7-4.1) g/dL Albumin/Globulin Ratio (1.0-2.8) Lipase (23-300) U/L Procalcitonin (<0.5) ng/mL SARS-CoV-2 (PCR) Negative (Negative) MDM Narrative Medical decision making narrative: This is a 66-year-old female comes emergency department for concern for cellulitis. Patient does have a large area of cellulitis concerning and likely not amenable to outpatient treatment. Patient has a white count of 17, she has a heart rate of 95, negative lactate, negative procalcitonin. Patient was started on vancomycin which she states has been helpful in the past. Patient appears to have diffuse cellulitis on examination no clear signs of induration or abscess or appreciated. Patient states she has never required I&D of her prior episodes of cellulitis. Patient case discussed with hospitalist who kindly accepts. Discharge Plan Departure Patient Disposition: Admitted As Inpatient Clinical Impression: Cellulitis of buttock, Cellulitis of back, Cellulitis of abdominal wall Admit Date/Time: 10/29/21 23:24 Admit Provider: Brenton Bridges
[2021-10-29] MEDS: MORPHINE 4 MG/ML INJ IV (22:49)
[2021-10-29] MEDS: ONDANSETRON 4 MG/2 ML INJ IV (22:49)
[2021-10-29] MEDS: VANCOMYCIN 2,000 MG/400 ML PIGGYBACK 200 MG IV (22:50)
[2021-10-29 23:00] VITALS: BP 110/54; PULSE 83; RESP 20; TEMP 37.4; O2SAT 90
[2021-10-29 23:30] VITALS: BP 113/58; PULSE 83; RESP 18; O2SAT 89
[2021-10-29 23:33] LABS: COVID19 -Nasal RAPID Negative (Negative)
[2021-10-29 23:39] VITALS: BMI 52.3
[2021-10-30] VITALS (9 sets, daily range): BP systolic 106–129; BP diastolic 52–85; PULSE 62–87; RESP 17–21; TEMP 36.1–37.4; O2SAT 90–98; BMI 52.3
--- NOTE | 2021-10-30 00:28 | PM.HP.1 ---
History of Present Illness History of Present Illness Date Patient Seen: 10/30/21 Time Patient Seen: 00:15 Chief complaint: Cellulitis on legs Narrative: Ms. Dempsey is a 65W with PMH morbid obesity, COPD, fibromyalgia, HTN, TIA, restless leg, JEFFREY not on CPAP who comes in to the hospital with skin redness, pain, and fevers. She notes that she has had eight episodes of cellulitis within the last short period of time. She was last here in the hospital with possible facial cellulitis vs allergy. She is not a diabetic. She notes she developed a sore behind her ear, and she believes this is where the erythema started. She said that began a week ago. The cellulitis then spreads anywhere it wants and she noted she developed pain and erythema on her right buttock and the left gluteal crease. She noted sharp pain. She has some abdominal redness as well. She also notes diarrhea. She has had a fever to 101-102. In the Ed workup was done, vitals notable for temp of 99.5. Labs notable for WBC 17.6, hgb 12, plts 364. Na 133, creatinine 0.72. Lactate 1.1. Procal 0.20. She was ordered for IV antibiotics with vanco and admitted for further treatment. Asked about family history and she denied her family had any medical issues. She is a former smoker Patient History Family & Social History Social History: household members family Safety & Behavioral: Feels Safe in Current Yes Environment Been Physically Hurt or No Threatened By a Person Tobacco & Substance use: Smoking Status Former smoker alcohol intake former alcohol intake frequency holiday/special occasion Substance Use Type does not use Meds Home Medications and Allergies Home Medications Medication Instructions Recorded Confirmed Type escitalopram oxalate 10 mg tablet 30 mg PO BEDTIME 12/27/20 05/09/21 History (Lexapro) hydrocodone 5 mg-acetaminophen 325 1.5 tab PO QID 12/27/20 05/09/21 History mg tablet ropinirole 0.25 mg tablet (Requip) 0.25 mg PO TID 12/27/20 05/09/21 History trazodone 50 mg tablet 50 mg PO BEDTIME 12/27/20 05/09/21 History Breo Ellipta 1 puff INHALATION DAILY 01/07/21 05/09/21 History furosemide 40 mg tablet (Lasix) 40 mg PO BEDTIME 05/09/21 05/09/21 History gabapentin 300 mg capsule 300 mg PO BEDTIME 05/09/21 05/09/21 History zolpidem 10 mg tablet 10 mg PO BEDTIME 05/09/21 05/09/21 History topiramate 25 mg tablet 25 mg PO TID 05/10/21 05/10/21 History L.acidophilus-L.bulgar-B.bifid-S.thermoph 1 ea PO TIDWM #60 tab 05/13/21 Rx 1 billion cell-250 mg tablet (Bacid) doxycycline hyclate 100 mg tablet 100 mg PO BID #7 tab 05/13/21 Rx famotidine 20 mg tablet (Pepcid AC) 20 mg PO BID #90 tab 05/13/21 Rx prednisone 5 mg tablet 5 mg PO DIRECTED #30 tab 05/13/21 Rx diclofenac sodium 1 % topical gel 2 g TOPICAL QID PRN #100 g 09/12/21 Rx (Voltaren Arthritis Pain) meloxicam 7.5 mg tablet 7.5 mg PO DAILY PRN #14 tab 09/12/21 Rx tramadol 50 mg tablet 50 mg PO BID PRN #10 tab 09/12/21 Rx Allergies Allergy/AdvReac Type Severity Reaction Status Date / Time Penicillins Allergy Intermediate Hives Verified 10/29/21 19:10 aspirin Allergy Verified 10/29/21 19:10 phenobarbital Allergy Verified 10/29/21 19:10 povidone-iodine Allergy Verified 10/29/21 19:10 [From Betadine] soap [From Betadine] Allergy Verified 10/29/21 19:10 Tetanus Vaccines and Toxoid Allergy Verified 10/29/21 19:10 pregabalin [From Lyrica] AdvReac Severe suicidal Verified 10/29/21 19:10 ideations Review of Systems Review of Systems Narrative: 14 systems reviewed and negative aside from what is noted in HPI Exam Vital Signs (past 8 hours): - 10/29/21 18:57 10/29/21 23:00 Temperature 99.5 F 99.3 F Pulse Rate 95 H 83 Respiratory Rate 17 20 Blood Pressure 130/88 110/54 L Pulse Oximetry 96 90 L Oxygen Delivery Method Room Air Narrative Exam Narrative: GEN: no acute distress HEENT: moist mucous membranes, PERRL NECK: trachea midline, no JVD CV: Regular rate and rhythm without murmurs PULM:: clear bilaterally, no wheezes rales or rhonchi. ABDOMEN: Soft, nontender. nondistended, normal bowel sounds, no organomegaly EXTREMITIES: no edema noted NEUROLOGICAL: moving all extremities SKIN: erythema at left gluteal crease across her buttock around to her abdomen, warm and tender to touch, also has forehead erythema and appears to be ulcer behind right ear Objective Labs Result Diagrams: 10/29/21 19:40 10/29/21 19:40 Labs: Laboratory Results - last 24 hr 10/29/21 10/29/21 10/29/21 19:40 19:40 19:40 WBC 17.6 H RBC 4.26 Hgb 12.0 Hct 37.1 MCV 87.0 MCH 28.1 MCHC 32.3 RDW 14.4 Plt Count 364 Neut % (Auto) 90.0 H Lymph % (Auto) 5.7 L [place] % (Auto) 3.1 Eos % (Auto) 0.9 L Baso % (Auto) 0.3 Neut # (Auto) 74538 H Lymph # (Auto) 1000 L [place] # (Auto) 500 Eos # (Auto) 200 Baso # (Auto) 100 Sodium 133 L Potassium 3.5 Chloride 96 L Carbon Dioxide 33 H BUN 6 L Creatinine 0.72 Estimated GFR > 60 BUN/Creatinine Ratio 8.3 Glucose 116 H Lactate 1.1 Calcium 8.1 L Total Bilirubin 0.6 AST 15 ALT 9 Alkaline Phosphatase 103 Total Protein 6.7 Albumin 3.3 L Globulin 3.4 Albumin/Globulin Ratio 1.0 Lipase 28 Procalcitonin 0.20 SARS-CoV-2 (PCR) 10/29/21 23:10 WBC RBC Hgb Hct MCV MCH MCHC RDW Plt Count Neut % (Auto) Lymph % (Auto) [place] % (Auto) Eos % (Auto) Baso % (Auto) Neut # (Auto) Lymph # (Auto) [place] # (Auto) Eos # (Auto) Baso # (Auto) Sodium Potassium Chloride Carbon Dioxide BUN Creatinine Estimated GFR BUN/Creatinine Ratio Glucose Lactate Calcium Total Bilirubin AST ALT Alkaline Phosphatase Total Protein Albumin Globulin Albumin/Globulin Ratio Lipase Procalcitonin SARS-CoV-2 (PCR) Negative Assessment & Plan Assessment & Plan narrative: Ms. Dempsey is a 66W with PMH COPD, morbid obesity admitted for cellulitis 1. Acute cellulitis of buttock and abdomen -ordered IV vanco -follow up cultures -MRSA swab -ordered probiotic to prevent c diff 2. Morbid obesity -contributing to chronic conditions and may prevent healing 3. COPD, chronic -takes breo at home 4. JEFFREY -not on CPAP at home -monitor patient pulse ox with vitals 5. Fibromyalgia -continue home pain medications 6. Depression -continue SSRI CODE: DNR Proxy: Kaley Florian, sister I have utilized all avaialble resources to reconcile the patient's home medications. Time Spent With Patient Critical Care time: I spent a total of [] minutes of critical care time on this patient's care today; this time is exclusive of procedural time. Quality MIPS - Admit I confirm the patient?s Advance Care Plan is present, Code status is documented, Surrogate decision maker is in patient?s record [If Yes, STOP here]: Yes
[2021-10-30] MEDS: OXYCODONE IR 10 MG TABLET 5 MG PO ×3 (04:18→20:11)
[2021-10-30 04:45] LABS: Add Manual Diff / Slide Review NO; Basophils Absolute Auto 100 /uL (0-100); Basophils Percent Auto 0.6 % (0-2); Eosinophils Absolute Auto 200 /uL (0-450); Eosinophils Percent Auto 1.2 % (2-4); Hematocrit 37.1 % (36-46); Hemoglobin 12.1 g/dL (12.0-16.0); Lymphocytes Absolute Auto 1400 /uL (1100-4500); Lymphocytes Percent Auto 9.4 % (25-40); Mean Corpuscular HGB Conc 32.6 % (30-36); Mean Corpuscular Hemoglobin 28.4 PG (26-34); Mean Corpuscular Volume 87.3 fL (80-100); Monocytes Absolute Auto 500 /uL (0-900); Monocytes Percent Auto 3.6 % (3-14); Neutrophils Absolute Auto 12500 /uL (1500-7000); Neutrophils Percent Auto 85.2 % (50-75); Platelet Count 341 X10^3/uL (150-400); Red Blood Cell Count 4.26 X10^6/uL (4.0-5.2); Red Cell Distribution Width 14.4 % (11.6-14.8); White Blood Cell Count 14.7 X10^3/uL (4.5-11.0)
--- NOTE | 2021-10-30 04:48 | PC.NURSE ---
0045 Pt admitted to 228 per stretcher from the ED, DX cellulitis. Areas of swelling and redness demarcated on the buttocks, left thigh and r flank area. Also noted are areas of redness in the mid back along the spine up to the mid thoracic area. There is also an open wound behind the right ear. Pt states this she believes is from wearing the face mask. There are no other open area noted.
[2021-10-30 04:53] LABS: BUN Creatinine Ratio 8.4 (6-22); Blood Urea Nitrogen 7 mg/dL (7-17); Calcium 7.9 mg/dL (8.4-10.2); Carbon Dioxide 33 mmol/L (22-32); Chloride 97 mmol/L (98-107); Estimated Glomerular Filt Rate > 60 mL/min (>60); Glucose 125 mg/dL (80-110); HEMOLYSIS < 15 (0-50); Potassium 3.7 mmol/L (3.4-5.1); Sodium 135 mmol/L (137-145)
[2021-10-30] MEDS: TOPIRAMATE 25 MG TABLET PO ×3 (08:39→20:39)
[2021-10-30] MEDS: LACTOBACILLUS ACIDOPHILUS TABLET 1 EACH PO ×2 (08:40→15:27)
[2021-10-30] MEDS: ROPINIROLE 0.25 MG TABLET PO ×3 (08:40→20:39)
[2021-10-30] MEDS: GABAPENTIN 300 MG CAPSULE PO ×2 (08:40→20:14)
[2021-10-30] MEDS: ENOXAPARIN 40 MG/0.4 ML SYRINGE SUBCUT ×2 (08:40→20:15)
[2021-10-30] MEDS: VANCOMYCIN 1,750 MG in SODIUM CHLORIDE 0.9% 500 ML 250 MG IV ×2 (11:28→22:47)
--- NOTE | 2021-10-30 14:02 | CM.DANOTE ---
DCP: Case received, EMR reviewed and met with patient. Introduced self and role. Was able to obtain information regarding patient's baseline activity status prior to hospitalization, as well as her current living situation. Patient is a 66 year old female who admitted yesterday evening to the care of the hospitalist team. PCP: Dr. Karen lei Payer: confirmed: [facility]. Patient came to the hospital via ambulance secondary to fever, concerns of cellulitis across her buttocks. Patient is morbidly obese, has history of cellulitis as well as C-Diff. Patient is here for acute cellulitis, and is on IV ABO. Met with patient in her room. She was laying in bed on her side. Conformed that she resides in [place] with her sister, and [id number]-wiz Marty. She does have [employer] caregivers 77 hours a month, assist with showers. She does not drive, and uses a walker at home. P: DCP to continue to follow for any needs. Patient should be able to go home when she is deemed medically stable. She may need home health services as well. Dulce Segundo RN/Operations Officer Discharge Planning/Care Management CM Discharge Assessment Start: 10/30/21 14:00 Freq: Status: Active Protocol: Document 10/30/21 14:00 (Rec: 10/30/21 14:02 [id number]) Discharge Planning Assessment Assigned Hide Measuring Machine Operator Dulce Segundo RN/Operations Officer Advance Directives? Yes Advance Directives on File Yes History Provided By Patient,Medical Record Prior Living Arrangements Mobile home Household Members family Type of transporation used prior to Relies on Others admit Independent with ADL's Yes Is patient alert and oriented? Yes Needs Assistance With Bathing,Meal Prep,Home Chores / Shopping DME Already Rented / Owned FWW / Walker Comment Has power wheelchair Barriers to Discharge No Comment As long as she can go home with oral ABO, home health may be an option for patient. Discharge Plan Home Transportation Arrangement Family Referrals Initiated Other Additional Comment Uncertain at this time, may benefit with home health Whiteboard Updated in Patient Room with Yes name and ext. # of Hide Measuring Machine Operator Review Status In Process Next Review Type Continued Stay Review Discharge Planning/Care Management CM Discharge Assessment Start: 10/30/21 14:00 Freq: Status: Active Protocol: Document 10/30/21 14:00 (Rec: 10/30/21 14:02 [id number]) Discharge Planning Assessment Assigned Hide Measuring Machine Operator Dulce Segundo RN/Operations Officer Advance Directives? Yes Advance Directives on File Yes History Provided By Patient,Medical Record Prior Living Arrangements Mobile home Household Members family Type of transporation used prior to Relies on Others admit Independent with ADL's Yes Is patient alert and oriented? Yes Needs Assistance With Bathing,Meal Prep,Home Chores / Shopping DME Already Rented / Owned FWW / Walker Comment Has power wheelchair Barriers to Discharge No Comment As long as she can go home with oral ABO, home health may be an option for patient. Discharge Plan Home Transportation Arrangement Family Referrals Initiated Other Additional Comment Uncertain at this time, may benefit with home health Whiteboard Updated in Patient Room with Yes name and ext. # of Hide Measuring Machine Operator Review Status In Process Next Review Type Continued Stay Review
[2021-10-30] MEDS: ESCITALOPRAM 10 MG TABLET 30 MG PO (20:13)
[2021-10-30] MEDS: ACETAMINOPHEN 325 MG TABLET 650 MG PO (20:13)
[2021-10-30] MEDS: ZOLPIDEM 5 MG TABLET PO (23:30)
[2021-10-31] VITALS (8 sets, daily range): BP systolic 95–164; BP diastolic 44–88; PULSE 63–86; RESP 16–18; TEMP 36.1–36.8; O2SAT 92–96
[2021-10-31 00:02] LABS: Clostridium Difficile Tox PCR Positive for C. diff (Negative)
--- NOTE | 2021-10-31 00:43 | PC.NURSE ---
Care of patient from [id number]. AAOX4, c/o of generalized body pain related to cellulites, treated with Oxycodone and Tylenol. Reports she has a sore in her mouth, there is an raised pink ulcer to her left front maxillary gum, her palate is otherwise pale pink. Has no teeth, is not able to chew very well with dentures because of mouth tenderness. She states her dentures are in her purse. When asked, patient reports that she has had 3 liquid BMs on day shift. Report given to Marni NATARAJAN.
[2021-10-31 05:32] LABS: Add Manual Diff / Slide Review NO; Basophils Absolute Auto 100 /uL (0-100); Basophils Percent Auto 0.9 % (0-2); Eosinophils Absolute Auto 300 /uL (0-450); Eosinophils Percent Auto 3.8 % (2-4); Hemoglobin 11.5 g/dL (12.0-16.0); Lymphocytes Absolute Auto 1700 /uL (1100-4500); Lymphocytes Percent Auto 20.5 % (25-40); Mean Corpuscular HGB Conc 32.8 % (30-36); Mean Corpuscular Hemoglobin 28.6 PG (26-34); Mean Corpuscular Volume 87.2 fL (80-100); Monocytes Absolute Auto 300 /uL (0-900); Monocytes Percent Auto 4.2 % (3-14); Neutrophils Absolute Auto 5700 /uL (1500-7000); Neutrophils Percent Auto 70.6 % (50-75); Platelet Count 334 X10^3/uL (150-400); Red Blood Cell Count 4.02 X10^6/uL (4.0-5.2); Red Cell Distribution Width 14.8 % (11.6-14.8); White Blood Cell Count 8.1 X10^3/uL (4.5-11.0)
[2021-10-31 05:37] LABS: BUN Creatinine Ratio 14.1 (6-22); Blood Urea Nitrogen 11 mg/dL (7-17); Calcium 7.7 mg/dL (8.4-10.2); Carbon Dioxide 32 mmol/L (22-32); Chloride 102 mmol/L (98-107); Estimated Glomerular Filt Rate > 60 mL/min (>60); Glucose 107 mg/dL (80-110); HEMOLYSIS < 15 (0-50); Magnesium 2.3 mg/dL (1.6-2.3); Potassium 3.8 mmol/L (3.4-5.1); Sodium 137 mmol/L (137-145)
[2021-10-31] MEDS: GABAPENTIN 300 MG CAPSULE PO ×2 (09:06→20:26)
[2021-10-31] MEDS: ROPINIROLE 0.25 MG TABLET PO ×3 (09:06→20:26)
[2021-10-31] MEDS: LACTOBACILLUS ACIDOPHILUS TABLET 1 EACH PO ×2 (09:06→16:31)
[2021-10-31] MEDS: TOPIRAMATE 25 MG TABLET PO ×3 (09:06→20:26)
[2021-10-31] MEDS: ENOXAPARIN 40 MG/0.4 ML SYRINGE SUBCUT ×2 (09:06→20:26)
[2021-10-31] MEDS: OXYCODONE IR 10 MG TABLET 5 MG PO ×2 (09:07→20:26)
[2021-10-31] MEDS: SODIUM CHLORIDE 0.9% FLUSH 10 ML IV (09:10)
[2021-10-31] MEDS: VANCOMYCIN 125 MG CAPSULE PO ×3 (09:13→22:06)
[2021-10-31 11:27] LABS: Vancomycin Trough 16.7 ug/mL (10-20)
--- NOTE | 2021-10-31 15:23 | PM.PN.1 ---
Subjective Subjective Date Patient Seen: 10/31/21 Interval history: Complains of continued redness, had diarrhea overnight and is C. diff positive. She does not feel well today but denies nausea, vomiting abdominal pain chest pain today. Exam Vital Signs (past 8 hours): - 10/31/21 08:07 10/31/21 08:58 10/31/21 12:00 Temperature 97.2 F L 98.2 F Pulse Rate 69 80 Respiratory Rate 16 18 Blood Pressure 130/60 164/88 H Pulse Oximetry 93 94 96 Oxygen Delivery Method Room Air Oxygen Flow Rate 0 Narrative Exam Narrative: GEN: no acute distress HEENT: moist mucous membranes, PERRL NECK: trachea midline, no JVD CV: Regular rate and rhythm without murmurs PULM:: clear bilaterally, no wheezes rales or rhonchi. ABDOMEN: Soft, nontender. nondistended, normal bowel sounds, no organomegaly EXTREMITIES: no edema noted NEUROLOGICAL: moving all extremities SKIN: erythema at left gluteal crease across her buttock around to her abdomen, warm and tender to touch, also has forehead erythema and appears to be ulcer behind right ear Objective Labs Result Diagrams: 10/31/21 04:56 10/31/21 04:56 Labs: Laboratory Results - last 24 hr 10/30/21 10/31/21 10/31/21 22:20 04:56 04:56 WBC 8.1 RBC 4.02 Hgb 11.5 L Hct 35.0 L MCV 87.2 MCH 28.6 MCHC 32.8 RDW 14.8 Plt Count 334 Neut % (Auto) 70.6 Lymph % (Auto) 20.5 L [place] % (Auto) 4.2 Eos % (Auto) 3.8 Baso % (Auto) 0.9 Neut # (Auto) 5700 Lymph # (Auto) 1700 [place] # (Auto) 300 Eos # (Auto) 300 Baso # (Auto) 100 Sodium 137 Potassium 3.8 Chloride 102 Carbon Dioxide 32 BUN 11 Creatinine 0.78 Estimated GFR > 60 BUN/Creatinine Ratio 14.1 Glucose 107 Calcium 7.7 L Magnesium 2.3 Vancomycin Trough C. difficile Tox (PCR) Positive for c. diff H 10/31/21 10:30 WBC RBC Hgb Hct MCV MCH MCHC RDW Plt Count Neut % (Auto) Lymph % (Auto) [place] % (Auto) Eos % (Auto) Baso % (Auto) Neut # (Auto) Lymph # (Auto) [place] # (Auto) Eos # (Auto) Baso # (Auto) Sodium Potassium Chloride Carbon Dioxide BUN Creatinine Estimated GFR BUN/Creatinine Ratio Glucose Calcium Magnesium Vancomycin Trough 16.7 C. difficile Tox (PCR) [facility] Social History household members: family Smoking Status: Former smoker alcohol intake: former Assessment & Plan Assessment & Plan narrative: Ms. Dempsey is a 66W with PMH COPD, morbid obesity admitted for cellulitis 1. Acute cellulitis of buttock and abdomen -continue vanco per pharmacy, will add ceftriaxone lack of improvement thus far. -follow up cultures 2. C.diff colitis - started on oral vancomycin 2. Morbid obesity -contributing to chronic conditions and may prevent healing 3. COPD, chronic -takes breo at home, no current signs of exacerbation 4. JEFFREY -not on CPAP at home -monitor patient pulse ox with vitals 5. Fibromyalgia -continue home pain medications 6. Depression -continue SSRI CODE: DNR Proxy: Kaley Florian, sister I have utilized all avaialble resources to reconcile the patient's home medications. Dispo: probable discharge to home in 1-3 days depending on cellulitis Time Spent With Patient Critical Care time: I spent a total of [] minutes of critical care time on this patient's care today; this time is exclusive of procedural time.
[2021-10-31] MEDS: levoFLOXacin 750 MG/150 ML PIGGYBACK 100 MG IV (16:31)
--- NOTE | 2021-10-31 16:41 | PC.NURSE ---
Bard midline placed upper left arm via US. Line placed with no problems. Good blood flow. Flushes with no problems. 20g 8cm cath.
[2021-10-31] MEDS: ONDANSETRON 4 MG/2 ML INJ IV (18:27)
[2021-10-31] MEDS: VANCOMYCIN 1,750 MG in SODIUM CHLORIDE 0.9% 500 ML 250 MG IV (18:30)
--- NOTE | 2021-10-31 19:38 | PC.NURSE ---
Pt is AxOx 4, independent and cooperative. No c/o pain most of the day. Continued contact precaution for C-diff. VSS. Pt is on IV ABO but pt's IV went bad and placed midline around 1630. However, it also went bed after Levoquin infused. Thus, now PICC line is going to be placed. Otherwise, no change. Pt only had tiny loose stool x1. Continue monitor.
[2021-10-31] MEDS: ESCITALOPRAM 10 MG TABLET 30 MG PO (20:26)
[2021-10-31] MEDS: ZOLPIDEM 5 MG TABLET PO (22:07)
[2021-11-01] VITALS (7 sets, daily range): BP systolic 112–160; BP diastolic 53–72; PULSE 71–90; RESP 16–22; TEMP 36.5–37.2; O2SAT 94–97
--- NOTE | 2021-11-01 03:13 | DI.RAD.S_ITS ---
PROCEDURE: XR CHEST FOR PICC 1V INDICATIONS: Verify Picc placement COMPARISON: [facility], CR, XR CHEST 1V, 01/05/2021, 8:05. FINDINGS: PICC was placed by the intravenous therapy team from the right side. Fluoroscopic spot film demonstrates the tip of PICC projecting to the area of distal SVC. IMPRESSION: Tip of PICC projects to the area of distal SVC. Dictated by: Christine Mckeon MD, PhD on 11/01/2021 at 7:43 Approved by: Christine Mckeon MD, PhD on 11/01/2021 at 7:44
[2021-11-01] MEDS: VANCOMYCIN 125 MG CAPSULE PO ×4 (04:51→20:58)
[2021-11-01] MEDS: VANCOMYCIN 1,750 MG in SODIUM CHLORIDE 0.9% 500 ML 250 MG IV ×2 (05:22→17:02)
[2021-11-01 05:57] LABS: Add Manual Diff / Slide Review NO; Basophils Absolute Auto 100 /uL (0-100); Basophils Percent Auto 0.9 % (0-2); Eosinophils Absolute Auto 300 /uL (0-450); Eosinophils Percent Auto 3.6 % (2-4); Hematocrit 35.2 % (36-46); Hemoglobin 11.5 g/dL (12.0-16.0); Lymphocytes Absolute Auto 1300 /uL (1100-4500); Lymphocytes Percent Auto 17.3 % (25-40); Mean Corpuscular HGB Conc 32.7 % (30-36); Mean Corpuscular Hemoglobin 28.7 PG (26-34); Mean Corpuscular Volume 87.9 fL (80-100); Monocytes Absolute Auto 300 /uL (0-900); Monocytes Percent Auto 3.8 % (3-14); Neutrophils Absolute Auto 5700 /uL (1500-7000); Neutrophils Percent Auto 74.4 % (50-75); Platelet Count 348 X10^3/uL (150-400); Red Blood Cell Count 4.01 X10^6/uL (4.0-5.2); Red Cell Distribution Width 14.4 % (11.6-14.8); White Blood Cell Count 7.7 X10^3/uL (4.5-11.0)
[2021-11-01 06:07] LABS: BUN Creatinine Ratio 16.2 (6-22); Blood Urea Nitrogen 12 mg/dL (7-17); Carbon Dioxide 31 mmol/L (22-32); Chloride 104 mmol/L (98-107); Estimated Glomerular Filt Rate > 60 mL/min (>60); Glucose 127 mg/dL (80-110); HEMOLYSIS 24 (0-50); Magnesium 2.1 mg/dL (1.6-2.3); Potassium 3.9 mmol/L (3.4-5.1); Sodium 138 mmol/L (137-145)
[2021-11-01] MEDS: OXYCODONE IR 10 MG TABLET 5 MG PO (06:28)
--- NOTE | 2021-11-01 07:21 | PC.NURSE ---
Shift Note-Patient developed sharp pain to right-mid abdomen, golfball sized superficial lump palpated, no discoloration. Dr Simons informed and saw patient, no new orders received. Patient was able to sleep after receiving Ambien and oxycodone, will continue to monitor.
[2021-11-01] MEDS: GABAPENTIN 300 MG CAPSULE PO ×2 (08:13→20:13)
[2021-11-01] MEDS: ENOXAPARIN 40 MG/0.4 ML SYRINGE SUBCUT (08:13)
[2021-11-01] MEDS: ROPINIROLE 0.25 MG TABLET PO ×3 (08:13→20:14)
[2021-11-01] MEDS: LACTOBACILLUS ACIDOPHILUS TABLET 1 EACH PO ×2 (08:13→17:01)
[2021-11-01] MEDS: ACETAMINOPHEN 325 MG TABLET 650 MG PO (08:13)
[2021-11-01] MEDS: TOPIRAMATE 25 MG TABLET PO ×3 (08:13→20:14)
[2021-11-01] MEDS: SODIUM CHLORIDE 0.9% FLUSH 10 ML IV (08:19)
--- NOTE | 2021-11-01 09:35 | CM.DPC ---
DCP Cont: Dis discuss patient during team rounds yesterday, and is noted that patient does have C-Diff. Anticipate that she will be here for another day or two, according to hospitalist, but will discuss during team rounds. P: DCP to continue to follow for needs. Plan is home when medically stable, maybe with home health. Dulce Segundo RN/Kiln Operator
--- NOTE | 2021-11-01 10:29 | PM.PN.1 ---
Subjective Subjective Date Patient Seen: 11/01/21 Interval history: Feels slightly improved today, but feels weak due to leg swelling and now diarrhea. She has had multiple what she describes as explosive diarrheal episodes still. She has C. diff and was started on PO vancomycin yesterday. No fevers or chills but noting some lower abdominal pain today. Denies nausea or vomiting. Exam Vital Signs (past 8 hours): - 11/01/21 05:20 Temperature 98.8 F Pulse Rate 79 Respiratory Rate 17 Blood Pressure 129/61 Pulse Oximetry 95 Oxygen Delivery Method Room Air Oxygen Flow Rate 0 Narrative Exam Narrative: GEN: no acute distress HEENT: moist mucous membranes, PERRL NECK: trachea midline, no JVD CV: Regular rate and rhythm without murmurs PULM:: clear bilaterally, no wheezes rales or rhonchi. ABDOMEN: Soft, nontender. nondistended, normal bowel sounds, no organomegaly EXTREMITIES: chronic lymphedema, mild LLE swelling > RLE. no joint effusions. NEUROLOGICAL: alert and oriented without focal deficits. SKIN: erythema at left gluteal crease across her buttock around to her abdomen, warm and tender to touch, though much improved. forehead erythema now resolved Objective Labs Result Diagrams: 11/01/21 05:45 11/01/21 05:45 Labs: Laboratory Results - last 24 hr 10/31/21 11/01/21 11/01/21 10:30 05:45 05:45 WBC 7.7 RBC 4.01 Hgb 11.5 L Hct 35.2 L MCV 87.9 MCH 28.7 MCHC 32.7 RDW 14.4 Plt Count 348 Neut % (Auto) 74.4 Lymph % (Auto) 17.3 L [place] % (Auto) 3.8 Eos % (Auto) 3.6 Baso % (Auto) 0.9 Neut # (Auto) 5700 Lymph # (Auto) 1300 [place] # (Auto) 300 Eos # (Auto) 300 Baso # (Auto) 100 Sodium 138 Potassium 3.9 Chloride 104 Carbon Dioxide 31 BUN 12 Creatinine 0.74 Estimated GFR > 60 BUN/Creatinine Ratio 16.2 Glucose 127 H Calcium 8.0 L Magnesium 2.1 Vancomycin Trough 16.7 PFSH Social History household members: family Smoking Status: Former smoker alcohol intake: former Assessment & Plan Assessment & Plan narrative: Ms. Dempsey is a 66W with PMH COPD, morbid obesity admitted for cellulitis 1. Acute cellulitis of buttock and abdomen -continue vanco per pharmacy, added ceftriaxone with improvement today. Continue both for now. Can discharge home on PO therapy when ready. -follow up cultures 2. C.diff colitis ?- started on oral vancomycin, continues to have frequent diarrhea today 2. Morbid obesity -contributing to chronic conditions and may prevent healing 3. COPD, chronic -takes breo at home, no current signs of exacerbation 4. JEFFREY -not on CPAP at home -monitor patient pulse ox with vitals 5. Fibromyalgia -continue home pain medications 6. Depression -continue SSRI CODE: DNR Proxy: Kaley Florian, sister I have utilized all avaialble resources to reconcile the patient's home medications. Dispo: probable discharge to home in 1-2 days depending on patient's diarrhea from C. diff. Time Spent With Patient Critical Care time: I spent a total of [] minutes of critical care time on this patient's care today; this time is exclusive of procedural time.
[2021-11-01] MEDS: levoFLOXacin 750 MG/150 ML PIGGYBACK 100 MG IV (15:03)
[2021-11-01 16:36] LABS: C difficie Toxins A and B, EIA Negative (Negative)
--- NOTE | 2021-11-01 17:49 | PC.NURSE ---
Pt is AxOx4, independent and cooperative. VSS, pt c/o back pain and received PRN tylenol in the morning with good effect. Pt had x2 loose BM today. However, pt is stated it was not as runny as before. Pt has PICC line placed this morning and it is working well. Otherwise, no problem identified.
[2021-11-01] MEDS: ZOLPIDEM 5 MG TABLET 10 MG PO (20:11)
[2021-11-01] MEDS: OXYCODONE IR 5 MG TABLET PO (20:13)
[2021-11-01] MEDS: ESCITALOPRAM 10 MG TABLET 30 MG PO (20:15)
--- NOTE | 2021-11-01 21:48 | PC.NURSE ---
Addendum entered by Bernarda Mccollum R.N. 11/02/21 02:47: Patient OOB to bathroom for bowel movement and states that volume of stool is much less. Patient C/O abd pain 8/10 with BM. Medicated with oxycodone 5 mg. Original Note: Patient states that pain in various areas of cellulitis is well controlled and non-existent. Patient reports abdominal pain at 9/10 throughout abdomen and increases with diarrhea. Discussed with hospitalist, Dr. Daniel, and fluids encouraged with ongoing doses of Vancomycin. Patient medicated with analgesic per EMar and patient stating that abdominal pain reduced to 6/10 from 9/10.
[2021-11-02] VITALS (19 sets, daily range): BP systolic 109–157; BP diastolic 51–77; PULSE 70–106; RESP 14–20; TEMP 35.9–36.6; O2SAT 91–98
[2021-11-02] MEDS: SODIUM CHLORIDE 0.9% FLUSH 10 ML IV ×3 (00:15→17:49)
[2021-11-02] MEDS: VANCOMYCIN 125 MG CAPSULE PO ×2 (02:16→09:10)
[2021-11-02] MEDS: OXYCODONE IR 5 MG TABLET PO ×5 (02:16→23:05)
[2021-11-02] MEDS: VANCOMYCIN 1,750 MG in SODIUM CHLORIDE 0.9% 500 ML 250 MG IV (05:18)
[2021-11-02 05:35] LABS: Add Manual Diff / Slide Review NO; Basophils Absolute Auto 100 /uL (0-100); Basophils Percent Auto 1.4 % (0-2); Eosinophils Absolute Auto 300 /uL (0-450); Eosinophils Percent Auto 3.2 % (2-4); Hematocrit 35.1 % (36-46); Hemoglobin 11.4 g/dL (12.0-16.0); Lymphocytes Absolute Auto 1400 /uL (1100-4500); Mean Corpuscular HGB Conc 32.4 % (30-36); Mean Corpuscular Hemoglobin 28.5 PG (26-34); Monocytes Absolute Auto 400 /uL (0-900); Monocytes Percent Auto 5.5 % (3-14); Neutrophils Absolute Auto 5900 /uL (1500-7000); Neutrophils Percent Auto 72.9 % (50-75); Platelet Count 299 X10^3/uL (150-400); Red Blood Cell Count 3.99 X10^6/uL (4.0-5.2); Red Cell Distribution Width 14.4 % (11.6-14.8); White Blood Cell Count 8.1 X10^3/uL (4.5-11.0)
[2021-11-02 05:41] LABS: BUN Creatinine Ratio 13.5 (6-22); Blood Urea Nitrogen 10 mg/dL (7-17); Calcium 8.1 mg/dL (8.4-10.2); Carbon Dioxide 30 mmol/L (22-32); Chloride 107 mmol/L (98-107); Estimated Glomerular Filt Rate > 60 mL/min (>60); Glucose 108 mg/dL (80-110); HEMOLYSIS 18 (0-50); Magnesium 2.2 mg/dL (1.6-2.3); Potassium 4.3 mmol/L (3.4-5.1); Sodium 137 mmol/L (137-145)
[2021-11-02] MEDS: LACTOBACILLUS ACIDOPHILUS TABLET 1 EACH PO ×2 (09:06→17:50)
[2021-11-02] MEDS: TOPIRAMATE 25 MG TABLET PO ×3 (09:07→21:05)
[2021-11-02] MEDS: ROPINIROLE 0.25 MG TABLET PO ×3 (09:07→21:05)
[2021-11-02] MEDS: GABAPENTIN 300 MG CAPSULE PO ×2 (09:08→21:06)
[2021-11-02] MEDS: metroNIDAZOLE 500 MG/100 ML PIGGYBACK 100 MG IV ×2 (10:27→17:50)
[2021-11-02] MEDS: DOXYCYCLINE HYCLATE 100 MG TABLET PO ×2 (10:27→21:04)
[2021-11-02] MEDS: VANCOMYCIN 125 MG CAPSULE 500 MG PO ×2 (16:30→21:12)
[2021-11-02] MEDS: ESCITALOPRAM 10 MG TABLET 30 MG PO (21:05)
[2021-11-02] MEDS: ZOLPIDEM 5 MG TABLET 10 MG PO (21:05)
[2021-11-02] MEDS: ACETAMINOPHEN 325 MG TABLET 650 MG PO (21:08)
--- NOTE | 2021-11-02 21:17 | PM.PN.1 ---
Subjective Subjective Date Patient Seen: 11/02/21 Time Patient Seen: 08:00 Interval history: She feels crummy. Has abdominal discomfort and still frequent mucous diarrhea. Exam Vital Signs (past 8 hours): - 11/02/21 16:52 11/02/21 19:00 11/02/21 19:55 Temperature 96.7 F L Pulse Rate 74 74 Respiratory Rate 14 16 Blood Pressure 114/53 L Pulse Oximetry 98 96 98 11/02/21 20:00 Temperature 97.3 F L Pulse Rate 82 Respiratory Rate 18 Blood Pressure 119/58 L Pulse Oximetry 96 Oxygen Delivery Method Room Air Oxygen Flow Rate 0 Narrative Exam Narrative: GEN: no acute distress CV: Regular rate and rhythm without murmurs PULM:: clear bilaterally, no wheezes rales or rhonchi. ABDOMEN: Soft, nontender. nondistended, normal bowel sounds, no organomegaly Objective Labs Result Diagrams: 11/02/21 05:25 11/02/21 05:25 Labs: Laboratory Results - last 24 hr 11/02/21 11/02/21 05:25 05:25 WBC 8.1 RBC 3.99 L Hgb 11.4 L Hct 35.1 L MCV 88.0 MCH 28.5 MCHC 32.4 RDW 14.4 Plt Count 299 Neut % (Auto) 72.9 Lymph % (Auto) 17.0 L [place] % (Auto) 5.5 Eos % (Auto) 3.2 Baso % (Auto) 1.4 Neut # (Auto) 5900 Lymph # (Auto) 1400 [place] # (Auto) 400 Eos # (Auto) 300 Baso # (Auto) 100 Sodium 137 Potassium 4.3 Chloride 107 Carbon Dioxide 30 BUN 10 Creatinine 0.74 Estimated GFR > 60 BUN/Creatinine Ratio 13.5 Glucose 108 Calcium 8.1 L Magnesium 2.2 PFSH Social History household members: family Smoking Status: Former smoker alcohol intake: former Assessment & Plan Assessment & Plan narrative: Ms. Dempsey is a 66W with PMH COPD, morbid obesity admitted for cellulitis 1. Acute cellulitis of buttock and abdomen -initially on vanco, then ceftriaxone added -mrsa swab negative, so stop vanco -given c diff will order for PO doxycycline -follow up cultures 2. C.diff colitis ?- started on oral vancomycin, at 125mg q6 without much improvement -increase vanco 500mg q6, add IV flagyl 3. Morbid obesity -contributing to chronic conditions and may prevent healing 4. COPD, chronic -takes breo at home, no current signs of exacerbation 5. JEFFREY -not on CPAP at home -monitor patient pulse ox with vitals 6. Fibromyalgia -continue home pain medications 7. Depression -continue SSRI Time Spent With Patient Critical Care time: I spent a total of [] minutes of critical care time on this patient's care today; this time is exclusive of procedural time.
[2021-11-03] VITALS (12 sets, daily range): BP systolic 113–144; BP diastolic 56–79; PULSE 70–84; RESP 17–22; TEMP 36.3–36.8; O2SAT 92–98
[2021-11-03] MEDS: metroNIDAZOLE 500 MG/100 ML PIGGYBACK 100 MG IV ×3 (01:14→17:10)
[2021-11-03] MEDS: VANCOMYCIN 125 MG CAPSULE 500 MG PO ×4 (03:45→20:31)
--- NOTE | 2021-11-03 04:36 | PC.NURSE ---
Patient with decrease in stool frequency. Still having copious amounts of flatus. Patient medicated with oxycdone after having stool. Rating abd Pain at 9/10. Patient was able to sleep at long intervals after hs meds and snack of an A[place] muffin with Peanut butter.
[2021-11-03 05:47] LABS: Hematocrit 37.3 % (36-46); Hemoglobin 12.1 g/dL (12.0-16.0); Mean Corpuscular HGB Conc 32.6 % (30-36); Mean Corpuscular Hemoglobin 28.7 PG (26-34); Platelet Count 331 X10^3/uL (150-400); Red Blood Cell Count 4.23 X10^6/uL (4.0-5.2); Red Cell Distribution Width 14.4 % (11.6-14.8); White Blood Cell Count 8.8 X10^3/uL (4.5-11.0)
[2021-11-03 05:53] LABS: Prothrombin Time 11.6 SECONDS (10.1-12.7)
[2021-11-03 05:59] LABS: BUN Creatinine Ratio 15.3 (6-22); Blood Urea Nitrogen 11 mg/dL (7-17); Calcium 8.3 mg/dL (8.4-10.2); Carbon Dioxide 26 mmol/L (22-32); Chloride 106 mmol/L (98-107); Estimated Glomerular Filt Rate > 60 mL/min (>60); Glucose 126 mg/dL (80-110); HEMOLYSIS 18 (0-50); Potassium 3.8 mmol/L (3.4-5.1); Sodium 137 mmol/L (137-145)
[2021-11-03] MEDS: TOPIRAMATE 25 MG TABLET PO ×3 (08:14→20:32)
[2021-11-03] MEDS: GABAPENTIN 300 MG CAPSULE PO ×2 (08:14→20:31)
[2021-11-03] MEDS: DOXYCYCLINE HYCLATE 100 MG TABLET PO ×2 (08:14→20:31)
[2021-11-03] MEDS: ROPINIROLE 0.25 MG TABLET PO ×3 (08:14→20:32)
[2021-11-03] MEDS: OXYCODONE IR 5 MG TABLET PO ×3 (08:15→20:32)
[2021-11-03] MEDS: LACTOBACILLUS ACIDOPHILUS TABLET 1 EACH PO ×2 (08:17→17:09)
[2021-11-03] MEDS: SODIUM CHLORIDE 0.9% FLUSH 10 ML IV ×2 (08:18→21:48)
--- NOTE | 2021-11-03 08:36 | DI.CT.S_ITS ---
PROCEDURE: CT ABDOMEN PELVIS W CON INDICATIONS: abdominal pain, c diff TECHNIQUE: After the administration of oral and IV contrast, axial sections were acquired from the lung bases to the pubic symphysis. Coronal and sagittal reformats were performed. For radiation dose reduction, the following was used: automated exposure control, adjustment of mA and/or kV according to patient size. COMPARISON: [facility], CT, CT ANGIO CHEST PE PROTOCOL, 01/06/2021, 10:31. FINDINGS: Image quality: Excellent. Lung bases: No pleural effusion. Mild peripheral reticular thickening. Heart: No significant findings. Central venous line with the tip at the cavoatrial junction. ABDOMEN: Liver: No focal lesion. Gallbladder: Absent. Biliary ducts: Unremarkable. Pancreas: Unremarkable. Spleen: Unremarkable. Adrenal Glands: No nodule. Kidneys and Ureters: No hydronephrosis. Small renal cysts. Stomach and Bowel: Diverticulosis. No diverticulitis. No focal inflammatory change appreciated. No small bowel obstruction. Stomach is not distended. Peritoneum: No abnormal intraperitoneal fluid. No free air. Ventral Wall: No hernia. Subcutaneous nodule at the right abdominal wall. The small foci of subcutaneous gas at the left abdominal wall. These are most consistent with injection sites. Abdominal Nodes: No retroperitoneal or mesenteric adenopathy by size criteria. Vessels: Aorta and inferior vena cava are normal in size. Moderate calcified plaque. PELVIS: Pelvic Organs: Uterus is absent. Bladder: Question mild stranding surrounding the urinary bladder. No stones. Pelvic Nodes: No enlarged lymph nodes. Miscellaneous: No inguinal hernias are seen. Bones: No suspicious lesion. Minimal height loss at T12 possibly Schmorl's node or compression fracture, unchanged. IMPRESSION: 1. Trace stranding surrounding the urinary bladder. This could be seen in cystitis. 2. No hydronephrosis. 3. Diverticulosis. No diverticulitis. No free fluid. No small bowel obstruction. Dictated by: Claudio Walker M.D. on 11/03/2021 at 12:06 Approved by: Claudio Walker M.D. on 11/03/2021 at 12:14
--- NOTE | 2021-11-03 14:15 | CM.DPC ---
DCP Cont: Discussed patient during team rounds. Patient continues to have frequent bowel movements, not currently ready for discharge. Plan is for patient to go home when medically stable. P: DCP to continue to follow for any needs. Dulce Segundo RN/[employer]
--- NOTE | 2021-11-03 15:11 | PM.PN.1 ---
Subjective Subjective Date Patient Seen: 11/03/21 Time Patient Seen: 08:00 Interval history: She says her stomach still hurts. Her diarrhea she thinks is every 2 hours. She feels slightly better. Exam Vital Signs (past 8 hours): - 11/03/21 08:07 11/03/21 08:30 11/03/21 12:00 Temperature 97.6 F Pulse Rate 71 80 78 Respiratory Rate 18 18 Blood Pressure 123/59 L Pulse Oximetry 97 97 98 Oxygen Delivery Method Room Air Oxygen Flow Rate 0 Narrative Exam Narrative: GEN: no acute distress CV: Regular rate and rhythm without murmurs PULM:: clear bilaterally, no wheezes rales or rhonchi. ABDOMEN: Soft, nontender. nondistended, normal bowel sounds, no organomegaly Objective Labs Result Diagrams: 11/03/21 05:30 11/03/21 05:30 Labs: Laboratory Results - last 24 hr 11/03/21 11/03/21 11/03/21 05:30 05:30 05:30 WBC 8.8 RBC 4.23 Hgb 12.1 Hct 37.3 MCV 88.0 MCH 28.7 MCHC 32.6 RDW 14.4 Plt Count 331 PT 11.6 INR 1.0 Sodium 137 Potassium 3.8 Chloride 106 Carbon Dioxide 26 BUN 11 Creatinine 0.72 Estimated GFR > 60 BUN/Creatinine Ratio 15.3 Glucose 126 H Calcium 8.3 L PFSH Social History household members: family Smoking Status: Former smoker alcohol intake: former Assessment & Plan Assessment & Plan narrative: Ms. Dempsey is a 66W with PMH COPD, morbid obesity admitted for cellulitis 1. Acute cellulitis of buttock and abdomen -initially on vanco, then ceftriaxone added -mrsa swab negative, so stop vanco -given c diff will order for PO doxycycline which was started on 11/02 -follow up cultures 2. C.diff colitis ?- started on oral vancomycin, at 125mg q6 without much improvement -increase vanco 500mg q6, add IV flagyl on 11/02 with some improvement -CT abdomen given continued abdominal pain to evaluate for colitis vs abscess vs other 3. Morbid obesity -contributing to chronic conditions and may prevent healing 4. COPD, chronic -takes breo at home, no current signs of exacerbation 5. JEFFREY -not on CPAP at home -monitor patient pulse ox with vitals 6. Fibromyalgia -continue home pain medications 7. Depression -continue SSRI Time Spent With Patient Critical Care time: I spent a total of [] minutes of critical care time on this patient's care today; this time is exclusive of procedural time.
[2021-11-03 18:29] LABS: Vancomycin Trough 6.7 ug/mL (10-20)
[2021-11-03] MEDS: ZOLPIDEM 5 MG TABLET 10 MG PO (20:31)
[2021-11-03] MEDS: ESCITALOPRAM 10 MG TABLET 30 MG PO (20:32)
[2021-11-04] MEDS: metroNIDAZOLE 500 MG/100 ML PIGGYBACK 100 MG IV ×3 (01:27→16:56)
[2021-11-04] MEDS: VANCOMYCIN 125 MG CAPSULE 500 MG PO ×4 (03:25→22:12)
[2021-11-04 03:27] VITALS: BP 136/62; PULSE 81; RESP 18; TEMP 36.1; O2SAT 94
[2021-11-04] MEDS: OXYCODONE IR 5 MG TABLET PO ×3 (03:39→20:46)
[2021-11-04] MEDS: ONDANSETRON 4 MG/2 ML INJ IV (03:39)
[2021-11-04 06:00] VITALS: BP 121/53; PULSE 69; RESP 17; TEMP 36.3; O2SAT 94
[2021-11-04] MEDS: TOPIRAMATE 25 MG TABLET PO ×3 (08:27→20:39)
[2021-11-04] MEDS: DOXYCYCLINE HYCLATE 100 MG TABLET PO (08:27)
[2021-11-04] MEDS: GABAPENTIN 300 MG CAPSULE PO ×2 (08:27→20:39)
[2021-11-04] MEDS: ROPINIROLE 0.25 MG TABLET PO ×3 (08:27→20:40)
[2021-11-04] MEDS: LACTOBACILLUS ACIDOPHILUS TABLET 1 EACH PO ×2 (08:28→16:56)
[2021-11-04] MEDS: SODIUM CHLORIDE 0.9% FLUSH 10 ML IV ×2 (08:29→20:42)
[2021-11-04 08:44] VITALS: O2SAT 97
[2021-11-04 12:00] VITALS: BP 127/68; PULSE 90; RESP 18; TEMP 36.6; O2SAT 97
--- NOTE | 2021-11-04 13:49 | CM.DPC ---
DCP Cont: Discussed patient during team rounds. Patient is continuing with IV ABO secondary to C-diff. Hospitalist indicated that patient is not yet medically ready for discharge as of yet. Patient resides in [place], does have [employer] caregivers in the home. P: DCP to continue to follow for any needs. Plan is for home when medically stable. Dulce Segundo RN/[employer]
[2021-11-04] MEDS: ACETAMINOPHEN 325 MG TABLET 650 MG PO (14:54)
--- NOTE | 2021-11-04 17:47 | PC.NURSE ---
Day Shift Note Patient alert/oriented x4, calm and cooperative. Up at simba. Vital signs stable throughout day shift. Abdominal/flank pain controlled with Oxycodone. Patient had two loose bowel movements. Cellulitis appears resolved to torso/buttocks, patient confirms. Erythemic, warm to touch, swollen lump under skin to right abdomen from previous Lovenox injections, reviewed at bedside. No further orders at this time. Call light within reach, bed low and locked.
[2021-11-04 18:00] VITALS: BP 118/56; PULSE 89; RESP 22; TEMP 36.6; O2SAT 96
--- NOTE | 2021-11-04 18:05 | P.PN_ITS ---
Subjective Subjective Date Patient Seen: 11/04/21 Interval history: BRIEF HISTORY THIS IS A VERY PLEASANT 66-YEAR-OLD FEMALE BEING TREATED FOR C DIFF COLITIS WELL CELLULITIS TO THE ABDOMINAL AREA. RASH SUSPECT THIS IS LIKELY HEMATOMA CELLULITIS REPORTED TO THE BUTTOCKS AREA WHICH COULD HAVE BEEN DERMATITIS DUE TO DIARRHEA ON VANCOMYCIN ORALLY WELL IV FLAGYL. TODAY PATIENT CONTINUED TO REPORT DIFFICULT DIARRHEA. MULTIPLE LOOSE BOWEL MOVEMENT REPORTED. DENIES ANY FEVER. NO CHILLS. EATING WELL. NO NAUSEA. NO VOMITING. PATIENT WAS EVALUATED WITH NURSING AT BEDSIDE. Exam Vital Signs (past 8 hours): - 11/04/21 12:00 Temperature 97.9 F Pulse Rate 90 Respiratory Rate 18 Blood Pressure 127/68 Pulse Oximetry 97 Oxygen Delivery Method Room Air Oxygen Flow Rate 0 Narrative Exam Narrative: NO ACUTE DISTRESS. PATIENT IS ALERT ORIENTED X3. VITAL SIGNS STABLE HEAD ATRAUMATIC NORMOCEPHALIC NECK : SUPPLE WITHOUT ADENOPATHY NO CAROTID BRUITS EYE: EOMI, PERRLA, NORMAL CONJUNCTIVA; NO JAUNDICE CHEST: REGULAR RATE. NO RUBS. PMI IS NON DISPLACED. NO MURMURS; NORMAL S1- S2 PULMONARY: DECREASED BS OVER THE BASES. MILD BIBASILAR CRACKLES NOTED; NO INCREASED DULLNESS TO PERCUSSION ABDOMEN: OBESE BUT SOFT. SOME AREA OF INDURATION NOTED ON THE RIGHT LOWER QUADRANT. MOVABLE. MILDLY TENDER TO TOUCH. MILD REDNESS APPRECIATED. NONDISTENDED. BOWEL SOUNDS ARE PRESENT IN ALL 4 QUADRANTS. NO MASS. EXTREMITIES: NO EDEMA.. NO CYANOSIS CLUBBING NOTED. NEURO: CRANIAL NERVES 2-12 GROSSLY INTACT. NO FOCAL NEUROLOGICAL DEFICIT NOTED. MSK: NORMAL RANGE OF MOTION FOR AGE. NO JOINT EFFUSION. SKIN: NORMAL FOR ETHNICITY; MILD REDNESS NOTED BUTTOCKS AREA. NONTENDER TO TOUCH. : NORMAL EXTERNAL GENITALIA. PSYCH : APPROPRIATE MOOD AND AFFECT. ALERT AWAKE ORIENTED X3 Objective Labs Result Diagrams: 11/03/21 05:30 11/03/21 05:30 Labs: Laboratory Results - last 24 hr 11/03/21 17:57 Vancomycin Trough 6.7 L PFSH Social History household members: family Smoking Status: Former smoker alcohol intake: former Assessment & Plan Assessment & Plan narrative: IMPRESSION C DIFF COLITIS. ON FLAGYL AND VANCO. DIARRHEA. ASSOCIATED WITH INVOLVED HEMATOMA OF ABDOMINAL WALL. ON THE RIGHT. NO FURTHER TREATMENT INDICATED DERMATITIS OF THE BUTTOCKS. RESOLVING LEUKOCYTOSIS RESOLVED MORBID OBESITY. LIFESTYLE CHANGES WILL BE RECOMMENDED FIBROMYALGIA PER HISTORY OBSTRUCTIVE SLEEP APNEA PER HISTORY. REQUIRED BIPAP PLAN PATIENT CONTINUED TO HAVE SIGNIFICANT LOOSE BOWEL MOVEMENTS WILL ADD CHOLESTYRAMINE WITH INSTRUCTION TO BE GIVEN 4 HOUR PRIOR TO VANCOMYCIN CONTINUE FLAGYL AND VANCO PREVIOUSLY ORDERED CONTINUE WITH ISOLATION PROTOCOL PER HOSPITAL POLICIES PATIENT APPEARS TO BE IMPROVED CLINICALLY LABS WILL BE ORDERED IN THE MORNING IF DIARRHEA IMPROVED OVER THE NEXT 24 HOURS PATIENT SHOULD BE ABLE TO BE DISCHARGED TO HOME ON ORAL ANTIBIOTICS TO CO MPLETE A FULL COURSE PATIENT APPEARED TO BE IMPROVED CLINICALLY. DOES NOT APPEAR TOXIC DURING MY EXAM. AREA AROUND THE BUTTOCKS WHICH WAS SUSPECTED TO BE CELLULITIC HAS ALSO IMPROVED. THE AREA ON THE ABDOMEN IS MOST LIKELY A HEMATOMA. CELLULITIS IS NOT SUSPECTED. WILL DISCONTINUE DOXYCYCLINE FOR NOW AND MONITOR CLOSELY ONLY SHOULD BE REABSORBED BY THE BODY IN THE NEXT FEW DAYS. SPOKE TO PATIENT AT LENGTH IN REGARD TO THE CASE QUESTIONS AND CONCERNS ADDRESSED TO HER SATISFACTION NURSING IN THE ROOM DURING MY VISIT Time Spent With Patient Critical Care time: I spent a total of [] minutes of critical care time on this patient's care today; this time is exclusive of procedural time.
[2021-11-04] MEDS: ESCITALOPRAM 10 MG TABLET 30 MG PO (20:30)
[2021-11-04] MEDS: ZOLPIDEM 5 MG TABLET 10 MG PO (20:39)
[2021-11-04 20:40] VITALS: BP 132/60; PULSE 75; RESP 18; TEMP 36.3; O2SAT 98
--- NOTE | 2021-11-04 22:50 | PC.NURSE ---
Patient complaining of R abd area of swelling and erythema. 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 This area outlined with black pen markings. Oxycodone given per EMAR for abd pain and headache rated at 9/10. Dr. Bridges notified of patients assessment of increased redness and warmth of R abd previous Lovenox injection site. Will continue to monitor site and patient's temperature. Dr. Bridges indicated that he will draw blood cultures and review antibiotics, if patient has a fever. Patient has labs ordered for 0500 for review. Patient sleeping after oxycodone given.
[2021-11-05] MEDS: metroNIDAZOLE 500 MG/100 ML PIGGYBACK 100 MG IV ×2 (00:51→09:09)
[2021-11-05] MEDS: SODIUM CHLORIDE 0.9% FLUSH 10 ML IV ×5 (00:51→20:18)
[2021-11-05 00:53] VITALS: TEMP 36.9
[2021-11-05 02:00] VITALS: BP 126/68; PULSE 75; RESP 18; TEMP 36.5; O2SAT 94
[2021-11-05] MEDS: OXYCODONE IR 5 MG TABLET PO ×4 (02:10→20:15)
[2021-11-05] MEDS: VANCOMYCIN 125 MG CAPSULE 500 MG PO ×2 (02:11→09:08)
[2021-11-05 05:40] LABS: Add Manual Diff / Slide Review NO; Basophils Absolute Auto 0 /uL (0-100); Basophils Percent Auto 0.3 % (0-2); Eosinophils Absolute Auto 300 /uL (0-450); Eosinophils Percent Auto 2.9 % (2-4); Hematocrit 36.3 % (36-46); Lymphocytes Absolute Auto 1500 /uL (1100-4500); Lymphocytes Percent Auto 16.1 % (25-40); Mean Corpuscular Hemoglobin 28.7 PG (26-34); Mean Corpuscular Volume 87.1 fL (80-100); Monocytes Absolute Auto 500 /uL (0-900); Monocytes Percent Auto 5.1 % (3-14); Neutrophils Absolute Auto 7000 /uL (1500-7000); Neutrophils Percent Auto 75.6 % (50-75); Platelet Count 303 X10^3/uL (150-400); Red Blood Cell Count 4.16 X10^6/uL (4.0-5.2); Red Cell Distribution Width 14.9 % (11.6-14.8); White Blood Cell Count 9.3 X10^3/uL (4.5-11.0)
[2021-11-05 06:06] LABS: Alanine Aminotransferase 14 IU/L (<35); Albumin 3.3 g/dL (3.5-5.0); Alkaline Phosphatase 91 U/L (38-126); Aspartate Aminotransferase 27 IU/L (14-36); BUN Creatinine Ratio 14.3 (6-22); Bilirubin Total 0.5 mg/dL (0.2-1.3); Blood Urea Nitrogen 10 mg/dL (7-17); Calcium 8.1 mg/dL (8.4-10.2); Carbon Dioxide 26 mmol/L (22-32); Chloride 107 mmol/L (98-107); Estimated Glomerular Filt Rate > 60 mL/min (>60); Globulin 3.2 g/dL (1.7-4.1); Glucose 104 mg/dL (80-110); HEMOLYSIS 20 (0-50); Magnesium 2.1 mg/dL (1.6-2.3); Phosphorous 3.2 mg/dL (2.8-4.1); Potassium 4.1 mmol/L (3.4-5.1); Sodium 138 mmol/L (137-145); Total Protein 6.5 g/dL (6.3-8.2)
[2021-11-05] MEDS: ROPINIROLE 0.25 MG TABLET PO ×3 (08:27→20:16)
[2021-11-05] MEDS: GABAPENTIN 300 MG CAPSULE PO ×2 (08:27→20:16)
[2021-11-05] MEDS: LACTOBACILLUS ACIDOPHILUS TABLET 1 EACH PO ×2 (08:27→17:14)
[2021-11-05] MEDS: TOPIRAMATE 25 MG TABLET PO ×3 (08:27→20:16)
[2021-11-05 10:46] VITALS: BP 103/51; PULSE 76; RESP 16; O2SAT 96
[2021-11-05] MEDS: CHOLESTYRAMINE/ASPARTAME 4 GM PACK PO ×2 (13:06→17:14)
--- NOTE | 2021-11-05 15:01 | PM.PN.1 ---
Subjective Subjective Date Patient Seen: 11/05/21 Interval history: ?THIS IS A VERY PLEASANT 66-YEAR-OLD FEMALE BEING TREATED FOR C DIFF COLITIS ? WELL CELLULITIS? TO THE? ABDOMINAL AREA.? RASH SUSPECT THIS IS LIKELY HEMATOMA ?CELLULITIS REPORTED TO THE BUTTOCKS AREA WHICH COULD HAVE BEEN DERMATITIS DUE TO ? DIARRHEA ON PO VANCOMYCIN WELL PO FLAGYL. ?TODAY PATIENT REPORTED 3 BOWEL MOVEMENTS PRIOR TO MY VISIT THIS MORNING 2 ADDITIONAL BOWEL MOVEMENTS REPORTED THIS AFTERNOON BY NURSING ?DENIES ANY FEVER.? NO CHILLS. ?EATING WELL.? NO NAUSEA.? NO VOMITING. NO OTHER SIGNIFICANT ISSUES OVERNIGHT Exam Vital Signs (past 8 hours): - 11/05/21 10:46 Pulse Rate 76 Respiratory Rate 16 Blood Pressure 103/51 L Pulse Oximetry 96 Oxygen Delivery Method Room Air Oxygen Flow Rate 0 Narrative Exam Narrative: NO ACUTE DISTRESS.? PATIENT IS ALERT ORIENTED X3. VITAL SIGNS STABLE HEAD ATRAUMATIC NORMOCEPHALIC NECK : SUPPLE WITHOUT ADENOPATHY NO CAROTID BRUITS EYE:? EOMI, PERRLA, NORMAL CONJUNCTIVA; NO JAUNDICE CHEST:? REGULAR RATE.? ? NO RUBS.? PMI IS NON DISPLACED.? NO MURMURS; NORMAL S1-S2 PULMONARY:? DECREASED BS OVER THE BASES.? MILD BIBASILAR CRACKLES NOTED; NO INCREASED DULLNESS TO PERCUSSION ABDOMEN:? OBESE BUT? SOFT. ? ? SOME AREA OF INDURATION NOTED ON THE RIGHT LOWER QUADRANT.? MOVABLE.? MILDLY TENDER TO TOUCH.? MILD REDNESS APPRECIATED. ?NONDISTENDED.? BOWEL SOUNDS ARE PRESENT IN ALL 4 QUADRANTS.? NO MASS. EXTREMITIES: NO EDEMA..? NO CYANOSIS CLUBBING NOTED. NEURO:? CRANIAL NERVES 2-12 GROSSLY INTACT. NO FOCAL NEUROLOGICAL DEFICIT NOTED. MSK:? NORMAL RANGE OF MOTION FOR AGE.? NO JOINT EFFUSION. SKIN:? NORMAL FOR ETHNICITY; ? MILD REDNESS NOTED BUTTOCKS AREA. ? NONTENDER TO TOUCH. :? NORMAL EXTERNAL GENITALIA. PSYCH :? APPROPRIATE MOOD AND AFFECT.? ALERT AWAKE ORIENTED X3 Objective Labs Result Diagrams: 11/05/21 05:30 11/05/21 05:30 Labs: Laboratory Results - last 24 hr 11/05/21 11/05/21 05:30 05:30 WBC 9.3 RBC 4.16 Hgb 12.0 Hct 36.3 MCV 87.1 MCH 28.7 MCHC 33.0 RDW 14.9 H Plt Count 303 Neut % (Auto) 75.6 H Lymph % (Auto) 16.1 L [place] % (Auto) 5.1 Eos % (Auto) 2.9 Baso % (Auto) 0.3 Neut # (Auto) 7000 Lymph # (Auto) 1500 [place] # (Auto) 500 Eos # (Auto) 300 Baso # (Auto) 0 Sodium 138 Potassium 4.1 Chloride 107 Carbon Dioxide 26 BUN 10 Creatinine 0.70 Estimated GFR > 60 BUN/Creatinine Ratio 14.3 Glucose 104 Calcium 8.1 L Phosphorus 3.2 Magnesium 2.1 Total Bilirubin 0.5 AST 27 ALT 14 Alkaline Phosphatase 91 Total Protein 6.5 Albumin 3.3 L Globulin 3.2 Albumin/Globulin Ratio 1.0 PFS Social History household members: family Smoking Status: Former smoker alcohol intake: former Assessment & Plan Assessment & Plan narrative: IMPRESSION C DIFF COLITIS.? PRESENT ON ARRIVAL. ON P.O VANCO. ?DIARRHEA.? ASSOCIATED WITH ABOVE. IMPROVING ? HEMATOMA OF ABDOMINAL WALL.? ON THE RIGHT.? NO FURTHER TREATMENT INDICATED ?DERMATITIS OF THE BUTTOCKS.? RESOLVING. NO PATIENT FOR ANTIBIOTIC THERAPY ?LEUKOCYTOSIS. RESOLVED ?MORBID OBESITY.? LIFESTYLE CHANGES WILL BE RECOMMENDED ?FIBROMYALGIA PER HISTORY ?OBSTRUCTIVE SLEEP APNEA PER HISTORY.? REQUIRED BIPAP ?PLAN PATIENT IMPROVED CLINICALLY WILL DISCONTINUE FLAGYL CONTINUE P.O. VANCO SPOKE TO PHARMACY IN REGARD TO THE CASE PATIENT ONCE AGAIN STARTED ON CHOLESTYRAMINE THIS WILL BE GIVEN AT LEAST 4 HOURS PRIOR TO THE VANCOMYCIN CONTINUE TO MONITOR CLOSELY ONCE THE DIARRHEA IS IMPROVED, SHOULD BE ABLE TO BE DISCHARGED TO HOME HOPEFUL THAT PATIENT COULD BE DISCHARGED IN NEXT 48 HOURS. 11/04 ?PATIENT CONTINUED TO HAVE SIGNIFICANT? LOOSE BOWEL MOVEMENTS ?WILL ADD? CHOLESTYRAMINE WITH INSTRUCTION TO BE GIVEN 4 HOUR PRIOR TO VANCOMYCIN ?CONTINUE FLAGYL AND VANCO PREVIOUSLY ORDERED ?CONTINUE WITH ISOLATION PROTOCOL? PER HOSPITAL POLICIES ?PATIENT APPEARS TO BE IMPROVED CLINICALLY ?LABS WILL BE ORDERED IN THE MORNING ?IF DIARRHEA IMPROVED OVER THE NEXT 24 HOURS ?PATIENT SHOULD BE ABLE TO BE DISCHARGED TO HOME ON? ORAL ANTIBIOTICS TO COMPLETE A FULL COURSE ?PATIENT APPEARED TO BE IMPROVED CLINICALLY. ? DOES NOT APPEAR TOXIC DURING MY EXAM. ?? AREA AROUND THE? BUTTOCKS WHICH WAS ? SUSPECTED TO BE CELLULITIC? HAS ALSO IMPROVED. ?THE AREA ON THE ABDOMEN IS MOST LIKELY A HEMATOMA. ?CELLULITIS IS NOT SUSPECTED. ?WILL DISCONTINUE DOXYCYCLINE FOR NOW AND MONITOR CLOSELY ONLY ?SHOULD BE REABSORBED BY THE BODY IN THE NEXT FEW DAYS. ? SPOKE TO PATIENT AT LENGTH IN REGARD TO THE CASE ?QUESTIONS AND CONCERNS ADDRESSED TO HER SATISFACTION ?NURSING IN THE ROOM DURING MY VISIT Time Spent With Patient Critical Care time: I spent a total of [] minutes of critical care time on this patient's care today; this time is exclusive of procedural time.
[2021-11-05] MEDS: VANCOMYCIN 125 MG CAPSULE PO ×2 (15:43→20:24)
[2021-11-05 18:00] VITALS: BP 140/63; PULSE 95; RESP 16; TEMP 36.7; O2SAT 94
--- NOTE | 2021-11-05 18:20 | PC.NURSE ---
Patient without new complaints today, states diarrhea persists but amounts are less. Stool is brown mucus loose. Hematoma/rash to abdomen remains within previously outlined borders. Patient is taking oxycodone for chronic generalized pain that she rates 8/10 at times, with improvement to 6/10. Patient is able to sleep and rest throughout the day. Tolerating po intake but states appetite is still not fully back. IV site remains intact. Call light within reach.
[2021-11-05 20:00] VITALS: BP 138/61; PULSE 75; RESP 21; TEMP 36.9; O2SAT 96
[2021-11-05] MEDS: ZOLPIDEM 5 MG TABLET 10 MG PO (20:16)
[2021-11-05] MEDS: ESCITALOPRAM 10 MG TABLET 30 MG PO (20:16)
[2021-11-06] VITALS: BP 105/52; PULSE 79; RESP 19; TEMP 36.7; O2SAT 99
[2021-11-06] MEDS: OXYCODONE IR 5 MG TABLET PO ×4 (00:30→20:24)
[2021-11-06] MEDS: CHOLESTYRAMINE/ASPARTAME 4 GM PACK PO ×4 (00:30→20:22)
[2021-11-06] MEDS: VANCOMYCIN 125 MG CAPSULE PO ×3 (03:48→18:24)
[2021-11-06 04:33] VITALS: BP 103/52; PULSE 74; RESP 19; TEMP 36.3; O2SAT 95
[2021-11-06 05:48] LABS: Add Manual Diff / Slide Review NO; Basophils Absolute Auto 100 /uL (0-100); Basophils Percent Auto 1.1 % (0-2); Eosinophils Absolute Auto 300 /uL (0-450); Eosinophils Percent Auto 3.3 % (2-4); Hematocrit 36.9 % (36-46); Hemoglobin 12.1 g/dL (12.0-16.0); Lymphocytes Absolute Auto 1700 /uL (1100-4500); Lymphocytes Percent Auto 16.6 % (25-40); Mean Corpuscular HGB Conc 32.9 % (30-36); Mean Corpuscular Hemoglobin 28.7 PG (26-34); Mean Corpuscular Volume 87.4 fL (80-100); Monocytes Absolute Auto 500 /uL (0-900); Monocytes Percent Auto 5.1 % (3-14); Neutrophils Absolute Auto 7600 /uL (1500-7000); Neutrophils Percent Auto 73.9 % (50-75); Platelet Count 331 X10^3/uL (150-400); Red Blood Cell Count 4.22 X10^6/uL (4.0-5.2); Red Cell Distribution Width 15.2 % (11.6-14.8); White Blood Cell Count 10.3 X10^3/uL (4.5-11.0)
[2021-11-06 05:57] LABS: Alanine Aminotransferase 12 IU/L (<35); Albumin 3.3 g/dL (3.5-5.0); Alkaline Phosphatase 103 U/L (38-126); Aspartate Aminotransferase 23 IU/L (14-36); BUN Creatinine Ratio 13.9 (6-22); Bilirubin Total 0.4 mg/dL (0.2-1.3); Blood Urea Nitrogen 10 mg/dL (7-17); Calcium 8.1 mg/dL (8.4-10.2); Carbon Dioxide 28 mmol/L (22-32); Chloride 107 mmol/L (98-107); Estimated Glomerular Filt Rate > 60 mL/min (>60); Globulin 3.4 g/dL (1.7-4.1); Glucose 107 mg/dL (80-110); HEMOLYSIS 17 (0-50); Magnesium 2.1 mg/dL (1.6-2.3); Phosphorous 3.2 mg/dL (2.8-4.1); Potassium 4.3 mmol/L (3.4-5.1); Sodium 137 mmol/L (137-145); Total Protein 6.7 g/dL (6.3-8.2)
[2021-11-06 06:00] VITALS: RESP 18
--- NOTE | 2021-11-06 06:43 | PC.NURSE ---
End of shift note. Care of patient from . Patient AAOX4, up to BR voiding, had one small loose BM. Slept most of the night. Oxycodone for pain. ABD hematoma has not evolved, outlined with marker. Uneventful night.
[2021-11-06] MEDS: TOPIRAMATE 25 MG TABLET PO ×3 (09:01→20:22)
[2021-11-06] MEDS: ROPINIROLE 0.25 MG TABLET PO ×3 (09:01→20:22)
[2021-11-06] MEDS: GABAPENTIN 300 MG CAPSULE PO ×2 (09:01→20:22)
[2021-11-06] MEDS: LACTOBACILLUS ACIDOPHILUS TABLET 1 EACH PO ×2 (09:01→18:24)
[2021-11-06] MEDS: SODIUM CHLORIDE 0.9% FLUSH 10 ML IV ×2 (09:02→20:22)
--- NOTE | 2021-11-06 10:53 | DI.CT.S_ITS ---
PROCEDURE: CT ABDOMEN PELVIS W CON INDICATIONS: c diff colitis; megacolon TECHNIQUE: After the administration of oral and IV contrast, axial sections were acquired from the lung bases to the pubic symphysis. Coronal and sagittal reformats were performed. For radiation dose reduction, the following was used: automated exposure control, adjustment of mA and/or kV according to patient size. COMPARISON: [facility], CT, CT ABDOMEN PELVIS W CON, 11/03/2021, 11:18. FINDINGS: Image quality: Excellent. Lung bases: Emphysematous changes are seen. No focal infiltrate, pleural effusion or pneumothorax. Heart: No significant findings. ABDOMEN: Liver: There is hepatic steatosis, no discrete hepatic lesion. Gallbladder: Gallbladder is surgically absent. Biliary ducts: Unremarkable. Pancreas: Unremarkable. Spleen: Unremarkable. Adrenal Glands: Unremarkable. Kidneys and Ureters: Unremarkable. Stomach and Bowel: There is no abnormally distended bowel loops. No abnormal bowel wall thickening. No bowel obstruction. Oral contrast is seen in terminal ileum. Sigmoid diverticulosis is seen, no CT evidence of acute diverticulitis. No mesenteric fat stranding. No abscess collection. Peritoneum: No abnormal intraperitoneal fluid. No free air. Ventral Wall: No hernia. Abdominal Nodes: No retroperitoneal or mesenteric adenopathy by size criteria. Vessels: Aorta and inferior vena cava are normal in size. PELVIS: Pelvic Organs: Unremarkable. Bladder: May bladder wall thickness is normal. Minimal pericystic fat stranding is noted unchanged from previous day and may represent low-grade cystitis. Pelvic Nodes: No enlarged lymph nodes. Miscellaneous: No inguinal hernias are seen. Bones: No suspicious bony lesion. No acute vertebral body compression fracture. Degenerative disc disease in lower lumbar spine is seen. Chronic appearing anterior wedge compression deformity at T12 level is again seen unchanged from prior studies. IMPRESSION: 1. No significant changes from 11/03/2021 study. 2. Finding may represent very mild cystitis. No renal stone or hydronephrosis. 3. No bowel obstruction or abnormal bowel wall thickening. No abnormal bowel loop distension. Sigmoid diverticulosis without CT evidence of acute diverticulitis. 4. Hepatic steatosis. Dictated by: Jason Noble M.D. on 11/06/2021 at 11:48 Approved by: Jason Noble M.D. on 11/06/2021 at 11:54
[2021-11-06 11:45] VITALS: BP 113/57; PULSE 78; RESP 22; TEMP 36.3; O2SAT 95
[2021-11-06 14:22] LABS: Appearance Urine UA CLEAR; Bilirubin Urine UA NEGATIVE (NEGATIVE); Color Urine UA YELLOW; Glucose Urine UA NEGATIVE (Negative); Ketones Urine UA NEGATIVE (NEGATIVE); Leukocyte Esterase Urine UA NEGATIVE (NEGATIVE); Nitrite Urine UA NEGATIVE (Negative); Occult Blood Urine UA NEGATIVE (Negative); Protein Urine UA NEGATIVE (Negative); Urobilinogen Urine UA 0.2 E.U./dL (0.2)
--- NOTE | 2021-11-06 14:43 | CM.DPC ---
DCP Cont. Per MD, pt to have CT scan of abdomen to rule out any abnormalities. Per imaging, findings were normal. MD goal is to slow down diarrhea and change medications towards likely discharge home tomorrow if stable. Pt has [employer] caregivers at home. No other needs identified at this time. P: To go home when medically stable Radha Boucher RN/ANAP
[2021-11-06 14:44] LABS: pH Urine UA 5.5 (4.5-8.0)
[2021-11-06 14:45] LABS: Amorphous Sediment Urine 1+; Bacteria Urine Moderate (10-30); Culture Indicated Urine Cult Not Indicated; RBC Urine 0-1/HPF (0-5/HPF); Squamous Epithelial Cell Urine 1-5 /HPF (0-5/HPF); WBC Urine 1-5/HPF (0-5/HPF)
--- NOTE | 2021-11-06 15:41 | P.PN_ITS ---
Subjective Subjective Date Patient Seen: 11/06/21 Interval history: THIS IS A VERY PLEASANT 66-YEAR-OLD FEMALE BEING TREATED FOR C DIFF COLITIS ? WELL CELLULITIS? TO THE? ABDOMINAL AREA.? RASH SUSPECT THIS IS LIKELY HEMATOMA ?CELLULITIS REPORTED TO THE BUTTOCKS AREA WHICH COULD HAVE BEEN DERMATITIS DUE TO ? DIARRHEA ?ON PO VANCOMYCIN ? OF 11/05 CT ABD 11/06: NO SIGNIFICANT CHANGES ; POSS CYSTITIS ?TODAY ? PATIENT REPORTED 3 BOWEL MOVEMENTS PRIOR TO? MY VISIT THIS MORNING 2 ADDITIONAL BOWEL MOVEMENTS REPORTED THIS AFTERNOON BY NURSING DENIES ANY FEVER.? NO CHILLS. EATING WELL.? NO NAUSEA.? NO VOMITING. NO OTHER SIGNIFICANT ISSUES OVERNIGHT Exam Vital Signs (past 8 hours): - 11/06/21 11:45 Temperature 97.3 F L Pulse Rate 78 Respiratory Rate 22 Blood Pressure 113/57 L Pulse Oximetry 95 Oxygen Delivery Method Room Air Oxygen Flow Rate 0 Narrative Exam Narrative: NO ACUTE DISTRESS.? PATIENT IS ALERT ORIENTED X3. VITAL SIGNS STABLE HEAD ATRAUMATIC NORMOCEPHALIC NECK : SUPPLE WITHOUT ADENOPATHY NO CAROTID BRUITS EYE:? EOMI, PERRLA, NORMAL CONJUNCTIVA; NO JAUNDICE CHEST:? REGULAR RATE.? ? NO RUBS.? PMI IS NON DISPLACED.? NO MURMURS; NORMAL S1- S2 PULMONARY:? DECREASED BS OVER THE BASES.? MILD BIBASILAR CRACKLES NOTED; NO INCREASED DULLNESS TO PERCUSSION ABDOMEN:? OBESE BUT? SOFT. ? ? SOME AREA OF INDURATION NOTED ON THE RIGHT LOWER QUADRANT.? MOVABLE.? MILDLY TENDER TO TOUCH.? MILD REDNESS APPRECIATED. ?NONDISTENDED.? BOWEL SOUNDS ARE PRESENT IN ALL 4 QUADRANTS.? NO MASS. EXTREMITIES: NO EDEMA..? NO CYANOSIS CLUBBING NOTED. NEURO:? CRANIAL NERVES 2-12 GROSSLY INTACT. NO FOCAL NEUROLOGICAL DEFICIT NOTED. MSK:? NORMAL RANGE OF MOTION FOR AGE.? NO JOINT EFFUSION. SKIN:? NORMAL FOR ETHNICITY; ? MILD REDNESS NOTED BUTTOCKS AREA. ? NONTENDER TO TOUCH. :? NORMAL EXTERNAL GENITALIA. PSYCH :? APPROPRIATE MOOD AND AFFECT.? ALERT AWAKE ORIENTED X3 Objective Labs Result Diagrams: 11/06/21 05:41 11/06/21 05:41 Labs: Laboratory Results - last 24 hr 11/06/21 11/06/21 11/06/21 05:41 05:41 13:55 WBC 10.3 RBC 4.22 Hgb 12.1 Hct 36.9 MCV 87.4 MCH 28.7 MCHC 32.9 RDW 15.2 H Plt Count 331 Neut % (Auto) 73.9 Lymph % (Auto) 16.6 L [place] % (Auto) 5.1 Eos % (Auto) 3.3 Baso % (Auto) 1.1 Neut # (Auto) 7600 H Lymph # (Auto) 1700 [place] # (Auto) 500 Eos # (Auto) 300 Baso # (Auto) 100 Sodium 137 Potassium 4.3 Chloride 107 Carbon Dioxide 28 BUN 10 Creatinine 0.72 Estimated GFR > 60 BUN/Creatinine Ratio 13.9 Glucose 107 Calcium 8.1 L Phosphorus 3.2 Magnesium 2.1 Total Bilirubin 0.4 AST 23 ALT 12 Alkaline Phosphatase 103 Total Protein 6.7 Albumin 3.3 L Globulin 3.4 Albumin/Globulin Ratio 1.0 Urine Color Yellow Urine Appearance Clear Urine pH 5.5 Ur Specific [place] 1.010 Urine Protein Negative Urine Glucose (UA) Negative Urine Ketones Negative Urine Occult Blood Negative Urine Nitrate Negative Urine Bilirubin Negative Urine Urobilinogen 0.2 Ur Leukocyte Esterase Negative Urine RBC 0-1/hpf Urine WBC 1-5/hpf Ur Squamous Epith Cells 1-5 /hpf D Amorphous Sediment 1+ Urine Bacteria Moderate (10-30) H Urine Yeast 1-5/hpf H Ur Culture Indicated? Cult not indicated PFSH Social History household members: family Smoking Status: Former smoker alcohol intake: former Assessment & Plan Assessment & Plan narrative: IMPRESSION C DIFF COLITIS.? PRESENT ON ARRIVAL.? ON P.O? VANCO. ?DIARRHEA.? ASSOCIATED WITH ABOVE.? IMPROVING ON [place] HEMATOMA OF ABDOMINAL WALL.? ON THE RIGHT.? NO FURTHER TREATMENT INDICATED DERMATITIS OF THE BUTTOCKS.? RESOLVING.? NO PATIENT FOR ANTIBIOTIC THERAPY LEUKOCYTOSIS.? RESOLVED ?MORBID OBESITY.? LIFESTYLE CHANGES WILL BE RECOMMENDED ?FIBROMYALGIA PER HISTORY ?OBSTRUCTIVE SLEEP APNEA PER HISTORY.? REQUIRED BIPAP POSS EAST INFECTION OF THE URINE; ADD DIFLUCAN ?PLAN PATIENT CONTINUED TO HAVE DIARRHEA AT THIS TIME WILL CONTINUE CHOLESTYRAMINE PREVIOUSLY ORDERED WE ALSO CONSIDER [facility]KES IF ABLE TO OBTAIN THE HOSPITAL NO SIGNIFICANT CHANGE TO BOWEL CONSISTENCY REPORTED BY PATIENT ALTHOUGH SHE THINK, IT IS SLIGHTLY WORSE CONTINUE WITH VANCOMYCIN ORALLY FOR NOW CT OF THE ABDOMEN ORDERED TODAY WITHOUT SIGNIFICANT CHANGES NOTED OR REPORTED BY RADIOLOGIST CONTINUE CURRENT MANAGEMENT FOR NOW OTHERWISE IF PATIENT REMAINED IMPROVED, SHOULD BE ABLE TO DISCHARGE IN THE MORNING DESPITE STILL HAVING DIARRHEA PATIENT IS AWARE OF THE PLAN 11/05 PATIENT IMPROVED CLINICALLY WILL DISCONTINUE FLAGYL CONTINUE P.O. VANCO SPOKE TO PHARMACY IN REGARD TO THE CASE PATIENT ONCE AGAIN STARTED ON CHOLESTYRAMINE THIS WILL BE GIVEN AT LEAST 4 HOURS PRIOR TO THE VANCOMYCIN CONTINUE TO MONITOR CLOSELY ONCE THE DIARRHEA IS IMPROVED, SHOULD BE ABLE TO BE DISCHARGED TO HOME HOPEFUL THAT PATIENT COULD BE DISCHARGED IN NEXT 48 HOURS. 11/04 ?PATIENT CONTINUED TO HAVE SIGNIFICANT? LOOSE BOWEL MOVEMENTS ?WILL ADD? CHOLESTYRAMINE WITH INSTRUCTION TO BE GIVEN 4 HOUR PRIOR TO VANCOMYCIN ?CONTINUE FLAGYL AND VANCO PREVIOUSLY ORDERED ?CONTINUE WITH ISOLATION PROTOCOL? PER HOSPITAL POLICIES ?PATIENT APPEARS TO BE IMPROVED CLINICALLY ?LABS WILL BE ORDERED IN THE MORNING ?IF DIARRHEA IMPROVED OVER THE NEXT 24 HOURS ?PATIENT SHOULD BE ABLE TO BE DISCHARGED TO HOME ON? ORAL ANTIBIOTICS TO COMPLETE A FULL COURSE ?PATIENT APPEARED TO BE IMPROVED CLINICALLY. ? DOES NOT APPEAR TOXIC DURING MY EXAM. ?? AREA AROUND THE? BUTTOCKS WHICH WAS ? SUSPECTED TO BE CELLULITIC? HAS ALSO IMPROVED. ?THE AREA ON THE ABDOMEN IS MOST LIKELY A HEMATOMA. ?CELLULITIS IS NOT SUSPECTED. ?WILL DISCONTINUE DOXYCYCLINE FOR NOW AND MONITOR CLOSELY ONLY ?SHOULD BE REABSORBED BY THE BODY IN THE NEXT FEW DAYS. ? SPOKE TO PATIENT AT LENGTH IN REGARD TO THE CASE ?QUESTIONS AND CONCERNS ADDRESSED TO HER SATISFACTION ?NURSING IN THE ROOM DURING MY VISIT Time Spent With Patient Critical Care time: I spent a total of [] minutes of critical care time on this patient's care today; this time is exclusive of procedural time.
[2021-11-06 18:00] VITALS: BP 114/53; PULSE 80; RESP 20; TEMP 36.6; O2SAT 98
--- NOTE | 2021-11-06 18:04 | PC.NURSE ---
End of Shift Note Patient alert and oriented, independent in room. VSS. Patient reported two loose bowel movements. Abdominal hematoma stayed within outline, warm and tender to touch. Call light within reach, bed low and locked.
[2021-11-06 20:00] VITALS: BP 132/60; PULSE 77; RESP 19; TEMP 36.3; O2SAT 95
[2021-11-06] MEDS: ESCITALOPRAM 10 MG TABLET 30 MG PO (20:23)
[2021-11-06] MEDS: ZOLPIDEM 5 MG TABLET 10 MG PO (20:24)
[2021-11-07] VITALS: BP 132/60; PULSE 86; RESP 16; TEMP 35.9; O2SAT 95
[2021-11-07] MEDS: VANCOMYCIN 125 MG CAPSULE PO ×3 (00:07→08:47)
[2021-11-07] MEDS: OXYCODONE IR 5 MG TABLET PO (02:50)
[2021-11-07 06:00] VITALS: BP 108/54; PULSE 77; RESP 18; TEMP 36.1; O2SAT 97
[2021-11-07 06:15] LABS: Add Manual Diff / Slide Review NO; Basophils Absolute Auto 200 /uL (0-100); Basophils Percent Auto 1.5 % (0-2); Eosinophils Absolute Auto 300 /uL (0-450); Eosinophils Percent Auto 3.3 % (2-4); Hematocrit 40.7 % (36-46); Hemoglobin 13.3 g/dL (12.0-16.0); Lymphocytes Absolute Auto 2100 /uL (1100-4500); Lymphocytes Percent Auto 20.4 % (25-40); Mean Corpuscular HGB Conc 32.7 % (30-36); Mean Corpuscular Hemoglobin 28.7 PG (26-34); Mean Corpuscular Volume 87.7 fL (80-100); Monocytes Absolute Auto 500 /uL (0-900); Neutrophils Absolute Auto 7100 /uL (1500-7000); Neutrophils Percent Auto 69.8 % (50-75); Platelet Count 361 X10^3/uL (150-400); Red Blood Cell Count 4.64 X10^6/uL (4.0-5.2); Red Cell Distribution Width 15.7 % (11.6-14.8); White Blood Cell Count 10.2 X10^3/uL (4.5-11.0)
[2021-11-07 06:26] LABS: Alanine Aminotransferase 13 IU/L (<35); Albumin 3.8 g/dL (3.5-5.0); Albumin Globulin Ratio 1.1 (1.0-2.8); Alkaline Phosphatase 100 U/L (38-126); Aspartate Aminotransferase 25 IU/L (14-36); BUN Creatinine Ratio 13.3 (6-22); Bilirubin Total 0.8 mg/dL (0.2-1.3); Blood Urea Nitrogen 10 mg/dL (7-17); Calcium 8.4 mg/dL (8.4-10.2); Carbon Dioxide 25 mmol/L (22-32); Chloride 104 mmol/L (98-107); Estimated Glomerular Filt Rate > 60 mL/min (>60); Globulin 3.6 g/dL (1.7-4.1); Glucose 113 mg/dL (80-110); HEMOLYSIS 43 (0-50); Magnesium 2.1 mg/dL (1.6-2.3); Phosphorous 3.2 mg/dL (2.8-4.1); Potassium 4.2 mmol/L (3.4-5.1); Sodium 137 mmol/L (137-145); Total Protein 7.4 g/dL (6.3-8.2)
[2021-11-07] MEDS: LACTOBACILLUS ACIDOPHILUS TABLET 1 EACH PO (08:47)
[2021-11-07] MEDS: TOPIRAMATE 25 MG TABLET PO (08:47)
[2021-11-07] MEDS: GABAPENTIN 300 MG CAPSULE PO (08:47)
[2021-11-07] MEDS: FLUCONAZOLE 100 MG TABLET 200 MG PO (08:47)
[2021-11-07] MEDS: ROPINIROLE 0.25 MG TABLET PO (08:47)
[2021-11-07] MEDS: SODIUM CHLORIDE 0.9% FLUSH 10 ML IV (09:00)
--- NOTE | 2021-11-07 09:12 | PM.DS.1 ---
History of Present Illness History of Present Illness Date Patient Seen: 11/07/21 Chief complaint: Cellulitis on legs Narrative: History of Present Illness Date Patient Seen: 10/30/21 Time Patient Seen: 00:15 Chief complaint: Cellulitis on legs Narrative: Ms. Dempsey is a 65W with PMH morbid obesity, COPD, fibromyalgia, HTN, TIA, restless leg, JEFFREY not on CPAP who comes in to the hospital with skin redness, pain, and fevers. She notes that she has had eight episodes of cellulitis within the last short period of time. She was last here in the hospital with possible facial cellulitis vs allergy. She is not a diabetic. She notes she developed a sore behind her ear, and she believes this is where the erythema started. She said that began a week ago. The cellulitis then spreads anywhere it wants and she noted she developed pain and erythema on her right buttock and the left gluteal crease. She noted sharp pain. She has some abdominal redness as well. She also notes diarrhea. She has had a fever to 101-102. In the Ed workup was done, vitals notable for temp of 99.5. Labs notable for WBC 17.6, hgb 12, plts 364. Na 133, creatinine 0.72. Lactate 1.1. Procal 0.20. She was ordered for IV antibiotics with vanco and admitted for further treatment. Asked about family history and she denied her family had any medical issues. She is a former smoker Discharge Providers Provider Date of admission: 10/31/21 13:30 Discharge Date: 11/07/21 Primary care physician: UNKNOWN Consults: N/A Discharge provider: Freida Weller, Summary Hospital Course Discharge Diagnosis: C DIFF COLITIS.? PRESENT ON ARRIVAL.? DC ON P.O? VANCO. ?DIARRHEA.? ASSOCIATED WITH ABOVE.? RESOLVED ON QUESTRAN HEMATOMA OF ABDOMINAL WALL.? ON THE RIGHT.? NO FURTHER TREATMENT INDICATED. CELLULITIS RULED OUT DERMATITIS OF THE BUTTOCKS.? RESOLVED .? CELLULITIS SUSPECTED ON ADMISSION WAS RULED OUT LEUKOCYTOSIS.? RESOLVED ?MORBID OBESITY.? LIFESTYLE CHANGES WILL BE RECOMMENDED ?FIBROMYALGIA PER HISTORY ?OBSTRUCTIVE SLEEP APNEA PER HISTORY.? REQUIRED BIPAP POSS YEAST INFECTION OF THE URINE; ADD DIFLUCAN X 5 DAYS Hospital Course: THIS IS A VERY PLEASANT 66-YEAR-OLD FEMALE ADMITTED TO THE HOSPITAL WITH CONCERN OF CELLULITIS. AT THAT DIARRHEA WAS REPORTED BY PATIENT WELL. SHE WAS TREATED WITH ANTIBIOTICS IN REGARD TO HER CELLULITIS WHICH HAS RESOLVED AT THIS TIME. PATIENT HAS LESION ON THE ABDOMINAL WALL WHICH IS LIKELY A HEMATOMA. PATIENT ALSO HAS SOME REDNESS IN THE BUTTOCKS AREA WHICH COULD BE IRRITATION FROM THE DIARRHEA. IN ANY CASE PATIENT WAS ALSO DIAGNOSED WITH C DIFF COLITIS. HAS BEEN ON ORAL VANCO A FLAGYL. SHE HAD PERSISTENT DIARRHEA OVER THE LAST FEW DAYS. SHE WAS STARTED ON CHOLESTYRAMINE FOR DAYS. AT THIS TIME HER LABS HAVE BEEN FAIRLY STABLE. SHE HAS BEEN AFEBRILE. OF THIS MORNING HER DIARRHEA HAD STOPPED AND PATIENT IS REPORTING FORM BOWEL MOVEMENTS. SHE WILL BE DISCHARGED ON ORAL VANCOMYCIN FOR AN ADDITIONAL 7 DAYS. PATIENT ALSO WILL BE ON LACTOBACILLUS T.I.D.. SHE IS INSTRUCTED TO REPORT ANY INCREASING ABDOMINAL PAIN, FEVER, RECURRENT DIARRHEA ONCE AGAIN TO HER PCP IF THEY PERSIST. ADDITIONAL MANAGEMENT WILL BE DEFERRED TO OUTPATIENT PROVIDERS. PATIENT TO FOLLOW-UP WITH PRIMARY CARE PHYSICIAN WITHIN 7-10 DAYS. ACTIVITIES WILL BE TOLERATED CARDIAC DIET Status at Discharge Cognitive/behavioral status at discharge: oriented Functional status at discharge: independent ambulation Overall status at discharge: patient is back to baseline Time Spent with Patient Time spent: Greater than 30 minutes Exam Vital Signs (past 8 hours): - 11/07/21 06:00 Temperature 97.0 F L Pulse Rate 77 Respiratory Rate 18 Blood Pressure 108/54 L Pulse Oximetry 97 Oxygen Delivery Method Room Air Oxygen Flow Rate 0 Narrative Exam Narrative: NO ACUTE DISTRESS.? PATIENT IS ALERT ORIENTED X3. VITAL SIGNS STABLE HEAD ATRAUMATIC NORMOCEPHALIC NECK : SUPPLE WITHOUT ADENOPATHY NO CAROTID BRUITS EYE:? EOMI, PERRLA, NORMAL CONJUNCTIVA; NO JAUNDICE CHEST:? REGULAR RATE.? ? NO RUBS.? PMI IS NON DISPLACED.? NO MURMURS; NORMAL S1-S2 PULMONARY:? DECREASED BS OVER THE BASES.? MILD BIBASILAR CRACKLES NOTED; NO INCREASED DULLNESS TO PERCUSSION ABDOMEN:? OBESE BUT? SOFT. ? ? SOME AREA OF INDURATION NOTED ON THE RIGHT LOWER QUADRANT.? MOVABLE.? MILDLY TENDER TO TOUCH.? MILD REDNESS APPRECIATED. ?NONDISTENDED.? BOWEL SOUNDS ARE PRESENT IN ALL 4 QUADRANTS.? NO MASS. EXTREMITIES: NO EDEMA..? NO CYANOSIS CLUBBING NOTED. NEURO:? CRANIAL NERVES 2-12 GROSSLY INTACT. NO FOCAL NEUROLOGICAL DEFICIT NOTED. MSK:? NORMAL RANGE OF MOTION FOR AGE.? NO JOINT EFFUSION. SKIN:? NORMAL FOR ETHNICITY; ? MILD REDNESS NOTED BUTTOCKS AREA. ? NONTENDER TO TOUCH. :? NORMAL EXTERNAL GENITALIA. PSYCH :? APPROPRIATE MOOD AND AFFECT.? ALERT AWAKE ORIENTED X3 Objective Labs Result Diagrams: 11/07/21 06:00 11/07/21 06:00 Labs: Laboratory Results - last 24 hr 11/06/21 11/07/21 11/07/21 13:55 06:00 06:00 WBC 10.2 RBC 4.64 Hgb 13.3 Hct 40.7 MCV 87.7 MCH 28.7 MCHC 32.7 RDW 15.7 H Plt Count 361 Neut % (Auto) 69.8 Lymph % (Auto) 20.4 L [place] % (Auto) 5.0 Eos % (Auto) 3.3 Baso % (Auto) 1.5 Neut # (Auto) 7100 H Lymph # (Auto) 2100 [place] # (Auto) 500 Eos # (Auto) 300 Baso # (Auto) 200 H Sodium 137 Potassium 4.2 Chloride 104 Carbon Dioxide 25 BUN 10 Creatinine 0.75 Estimated GFR > 60 BUN/Creatinine Ratio 13.3 Glucose 113 H Calcium 8.4 Phosphorus 3.2 Magnesium 2.1 Total Bilirubin 0.8 AST 25 ALT 13 Alkaline Phosphatase 100 Total Protein 7.4 Albumin 3.8 Globulin 3.6 Albumin/Globulin Ratio 1.1 Urine Color Yellow Urine Appearance Clear Urine pH 5.5 Ur Specific [place] 1.010 Urine Protein Negative Urine Glucose (UA) Negative Urine Ketones Negative Urine Occult Blood Negative Urine Nitrate Negative Urine Bilirubin Negative Urine Urobilinogen 0.2 Ur Leukocyte Esterase Negative Urine RBC 0-1/hpf Urine WBC 1-5/hpf Ur Squamous Epith Cells 1-5 /hpf D Amorphous Sediment 1+ Urine Bacteria Moderate (10-30) H Urine Yeast 1-5/hpf H Ur Culture Indicated? Cult not indicated PFSH Social History household members: family Smoking Status: Former smoker alcohol intake: former Discharge Plan Discharge Plan Patient Disposition: Home Discharge orders & Medications Prescriptions: New fluconazole [Diflucan] 100 mg Tablet 200 mg PO DAILY Qty: 10 0RF vancomycin 125 mg Capsule 125 mg PO Q6H Qty: 28 0RF cholestyramine-aspartame [Prevalite] 4 gram Powder In Packet 4 gm PO Q6H Qty: 8 0RF Bacid 1 billion cell- 250 mg Tablet 1 ea PO TID Qty: 90 3RF Continued trazodone 50 mg Tablet 50 mg PO BEDTIME 0RF hydrocodone-acetaminophen 5-325 mg Tablet 1.5 tab PO QID 0RF ropinirole [Requip] 0.25 mg Tablet 0.25 mg PO TID 0RF escitalopram oxalate [Lexapro] 10 mg Tablet 30 mg PO BEDTIME 0RF Breo Ellipta 1 puff inhalation DAILY PRN (Reason: Adequate Ventilation) 0RF gabapentin 300 mg capsule 300 mg PO BID-TID 0RF Rx Instructions: 300 mg orally zolpidem 10 mg tablet 10 mg PO BEDTIME 0RF topiramate 25 mg Tablet 25 mg PO TID 0RF prednisone 5 mg tablet 5 mg PO DIRECTED Qty: 30 0RF Rx Instructions: 30MG PO X 3 DAYS 20MG PO X 3 DAYS 10MG PO X 3 DAYS 5 MG PO X 3 DAYS Discontinued Bacid 1 billion cell- 250 mg Tablet 1 ea PO TIDWM Qty: 60 0RF Diet/Activity/Treatments Diet: Low-fat, Low-sodium and Low-cholesterol Activity: TOLERATED Skin/Wound/Dressing Care Report to your healthcare provider any signs of infection, such as:: chills, fever, night sweats and increased pain
--- NOTE | 2021-11-07 12:23 | CM.DPC ---
DCP Discharge Home Per MD, pt is medically stable to d/c home today with no identified barriers to discharge. Per RN, pt's IV access pulled and pt anxious to get home today and no concerns but pt requesting PCP list for [facility]. SW provided RN with two lists for the contact info for [facility] and [facility] and RN kindly provided to pt. Plan: Patient discharged home this morning via [facility] POV and PCP list and no further SW needs at this time. KARMA Ruiz
== END 2021-11-07 11:50 | disposition home or self-care (01) | DRG 372 ==
LOC: ED 22:27 → AC 23:25 → ICU 10-30
PROVIDERS: Hospitalist; Admitting Provider Internal Medicine; Emergency Provider Emergency Medicine; Referring Provider Emergency Medicine; Visit Provider Internal Medicine
DX: A04.71 Enterocolitis due to Clostridium difficile, recurrent (principal); Z68.43 Body mass index [BMI] 50.0-59.9, adult; B37.49 Other urogenital candidiasis; L30.9 Dermatitis, unspecified; E66.01 Morbid (severe) obesity due to excess calories; M79.7 Fibromyalgia; F32.A Depression, unspecified; G47.33 Obstructive sleep apnea (adult) (pediatric); J44.9 Chronic obstructive pulmonary disease, unspecified; G25.81 Restless legs syndrome; Z87.891 Personal history of nicotine dependence; Z20.822 Contact with and (suspected) exposure to COVID-19; Z66 Do not resuscitate
CPT/HCPCS: 36415; 36569; 36592; 74177; 80048; 80053; 80202; 81001; 83605; 83690; 83735; 84100; 84145; 85025; 85027; 85610; 87040; 87324; 87493; 87635; 87797; 94760; 96374; 96375; 99284; C9803; G0378; J1642; J1650; J1956; J2270; J2405; Q9967